=== PATIENT | female | born 1950 | race Caucasian/White ===

== ENCOUNTER → 2022-02-07 | Outpatient (CLI) | payer MEDICARE, OTHER ==
--- NOTE | 2022-02-07 14:39 | Diagnostic Imaging Report ---
INDICATION: PAIN OF LEFT HAND COMPARISON: None. FINDINGS: 3 radiographic views of the left hand were obtained. There are moderate osteoarthritic changes at the 1st carpometacarpal joint space. Mild degenerative changes of the interphalangeal joint spaces are also noted. Joint spaces are otherwise maintained. Osseous structures are intact. There is no acute fracture. No suspicious osteolytic lesion is seen. No unexpected radiopaque foreign bodies are identified. IMPRESSION: 1. Osteoarthritic changes to the left hand, but no evidence of acute fracture or dislocation. Dictated by: Dictated on workstation # [id number]
== END ==
LOC: ORTHO 14:04
PROVIDERS: ATTEND Orthopaedic Surgery
DX: M19.042 Primary osteoarthritis, left hand (principal)
CPT/HCPCS: 73130; G0463; 99213

== ENCOUNTER 2022-05-02 05:29 | Outpatient (CLI) | payer MEDICARE, OTHER ==
[~2022-05-02] VITALS: Ht 160.2 cm; Wt 109.0 kg
[2022-05-02] MEDS ORDERED: FOLI0.4T6 PO (10:20)
[2022-05-02] MEDS ORDERED: SERT-413 PO (10:20)
[2022-05-02] MEDS ORDERED: ASPI81TA16 PO (10:20)
[2022-05-02] MEDS ORDERED: LEVO88CA4 PO (10:20)
[2022-05-02] MEDS ORDERED: CELE-63 PO (10:20)
[2022-05-02] MEDS ORDERED: METH2.5T PO (10:20)
[2022-05-02] MEDS ORDERED: MULT-1136 PO (10:20)
[2022-05-02] MEDS ORDERED: DICL20GE TP (10:20)
[2022-05-02] MEDS ORDERED: LOSA1TAB26 PO (10:20)
== END 2022-05-02 10:44 | disposition home or self-care (01) ==
LOC: PREOP 05:29
PROVIDERS: ATTEND Orthopaedic Surgery
DX: Z01.818 Encounter for other preprocedural examination (principal)

== ENCOUNTER 2022-05-06 07:20 | Day surgery (SDC) | payer MEDICARE, OTHER ==
[~2022-05-06] VITALS: Ht 160 cm; Wt 109.0 kg
[2022-05-06] VITALS (8 sets, daily range): BP systolic 129–173; BP diastolic 72–93
[~2022-05-06 07:20] MED LIST: ASPI81TA16 PO; CELE-63 PO; DICL20GE TP; FOLI0.4T6 PO; LEVO88CA4 PO; LOSA1TAB26 PO; METH2.5T PO; MULT-1136 PO; SERT-413 PO
[2022-05-06] MEDS ORDERED: ceFAZolin INJECTION 2,000 MG in NS (IVPB) 50 ML IV ONE (07:30)
[2022-05-06] MEDS ORDERED: LACTATED RINGERS 1,000 ML IV PRN (07:30)
[2022-05-06] MEDS ORDERED: BUPIVACAINE 0.25% 30 ML (SENSORCAINE) VIAL ONE (07:45)
[2022-05-06] MEDS ORDERED: MIDAZOLAM 2 MG/2 ML (VERSED) VIAL ONE (09:09)
[2022-05-06] MEDS ORDERED: LIDOCAINE PF 0.5% 50 ML (XYLOCAINE) VIAL ONE (09:09)
[2022-05-06] MEDS ORDERED: PROPOFOL INJECTION 50 ML IV ONE (09:09)
[2022-05-06] MEDS ORDERED: fentaNYL INJ 100 MCG/2 ML AMP ONE (09:09)
[2022-05-06] MEDS ORDERED: ESMOLOL 100 MG/10 ML (BREVIBLOC) VIAL ONE (10:20)
[2022-05-06] MEDS ORDERED: NEO/POLY/BAC (NEOSPORIN) OINT 15 GM TUBE ONE (10:35)
[2022-05-06] MEDS ORDERED: LABETALOL HCL 20 MG/4 ML VIAL ONE (10:37)
[2022-05-06] MEDS ORDERED: BUPIVACAINE 0.25% 30 ML (SENSORCAINE) VIAL INJ ONE (10:45)
[2022-05-06] MEDS: NEO/POLY/BAC (NEOSPORIN) OINT 15 GM TUBE TOP SCH (10:47)
--- NOTE | 2022-05-06 10:57 | Operative Report - Ortho ---
Operative Report Surgeon (s)/Silk Screen Operator (s) Surgeon GERTRUDE RICHEY MD Silk Screen Operator n/a Pre-Operative Diagnosis LEFT CARPAL TUNNEL SYNDROME Post-Operative Diagnosis same Operative Report Date of Procedure: May 06, 2022 Name of Procedure Performed: Left Carpal Tunnel Release Description & Findings After obtaining informed consent and marking the patient in the preoperative holding area, the patient was administered IV antibiotics. The patient was t aken to the operating room and lang block anesthesia was induced. The left upper extremity was prepped and draped in the usual sterile fashion. Surgical timeout was taken. Incision was made just ulnar to the thenar crease. Blunt dissection was carried down to the longitudinal fibers of the palmar fascia; these were divided in line revealing the transverse carpal ligament. Beginning distally and working proximally, carpal tunnel release was performed. Nerve protector was placed and release was completed back to the level of the forearm fascia. Probe was inserted and release was palpably complete. Tourniquet was dropped and hemostasis was achieved. Wound was closed with 4-0 nylon. Wound was dressed with antibiotic ointment, xeroform, 4x4s, parisa, ABD for soft splint, cast padding, and ELIN wrap. Patient tolerated the proceudre well and was stable to the recovery room. Anesthesia Type Lang Block Estimated Blood Loss minimal Specimen(s) collected/removed None GERTRUDE RICHEY MD May 06, 2022 10:57
[2022-05-06] MEDS ORDERED: ACHD5005 PO (11:00)
[2022-05-06] MEDS ORDERED: ONDANSETRON 4 MG/2 ML (SDV) Z0FRAN IVP PRN (11:15)
--- NOTE | 2022-05-06 12:01 | Anesthesia-General Post-Op ---
MAC Patient Condition Mental Status/LOC: Same as Preop Cardiovascular: Satisfactory Nausea/Vomiting: Absent Respiratory: Satisfactory Pain: Controlled Complications: Absent Post Op Complications Complications None Follow Up Care/Instructions Patient Instructions None needed. Anesthesiology Discharge Order Discharge Order Patient is doing well, no complaints, stable vital signs, no apparent adverse anesthesia problems. No complications reported per nursing. ANTONIO PHOENIX CRNA May 06, 2022 12:01
== END 2022-05-06 12:05 | disposition home or self-care (01) ==
LOC: SDC 07:20
PROVIDERS: ATTEND Orthopaedic Surgery
DX: G56.02 Carpal tunnel syndrome, left upper limb (principal); Z79.82 Long term (current) use of aspirin; E66.01 Morbid (severe) obesity due to excess calories; Z68.41 Body mass index [BMI] 40.0-44.9, adult
CPT/HCPCS: 87081

== ENCOUNTER → 2022-05-21 | Outpatient (CLI) | payer MEDICARE, OTHER ==
[~2022-05-21] MED LIST changes: +ACHD5005 PO
== END ==
LOC: ORTHO 09:33
PROVIDERS: ATTEND Orthopaedic Surgery
DX: M17.11 Unilateral primary osteoarthritis, right knee (principal)

== ENCOUNTER → 2022-06-20 | Outpatient (CLI) | payer MEDICARE, OTHER ==
--- NOTE | 2022-06-20 16:26 | Diagnostic Imaging Report ---
INDICATION: Right knee pain AP, oblique, lateral and sunrise views of the right knee are obtained. No fracture or acute bone abnormality is seen. There is moderate medial joint space narrowing with osteophyte formation. Lateral compartment appears preserved. Patellofemoral compartment appears preserved. IMPRESSION: Degenerative findings of the right knee medial compartment with no acute abnormality. Dictated by: Dictated on workstation # [id number]
== END ==
LOC: ORTHO 09:51
PROVIDERS: ATTEND Orthopaedic Surgery
DX: M17.11 Unilateral primary osteoarthritis, right knee (principal)
CPT/HCPCS: 73564

== ENCOUNTER → 2022-07-02 | Outpatient (CLI) | payer MEDICARE, OTHER | LOC: ORTHO 14:15 | PROVIDERS: ATTEND Orthopaedic Surgery | DX: M17.11 Unilateral primary osteoarthritis, right knee (principal) | CPT/HCPCS: 20610 ==

== ENCOUNTER → 2022-10-03 | Outpatient (CLI) | payer MEDICARE, OTHER | LOC: ORTHO 11:30 | PROVIDERS: ATTEND Orthopaedic Surgery | DX: M17.11 Unilateral primary osteoarthritis, right knee (principal) | CPT/HCPCS: 20610 ==

== ENCOUNTER → 2023-04-08 | Outpatient (CLI) | payer MEDICARE, OTHER ==
[2023-04-08 10:25] LABS: BASOPHILS % (AUTO) 1 % (0-10); EOSINOPHILS # (AUTO) 0.2 10^3/uL (0.0-0.3); EOSINOPHILS % (AUTO) 2 % (0-10); HEMATOCRIT 44 % (35-52); HEMOGLOBIN 14.4 g/dL (11.5-16.0); LYMPHOCYTES # (AUTO) 1.6 10^3/uL (1.0-4.0); LYMPHOCYTES % (AUTO) 19 % (12-44); MEAN CORPUSCULAR HEMOGLOBIN 29 pg (25-34); MEAN CORPUSCULAR HGB CONC 33 g/dL (32-36); MEAN CORPUSCULAR VOLUME 90 fL (80-99); MEAN PLATELET VOLUME 10.1 fL (9.0-12.2); MONOCYTES # (AUTO) 0.6 10^3/uL (0.0-1.0); MONOCYTES % (AUTO) 7 % (0-12); NEUTROPHILS # (AUTO) 5.9 10^3/uL (1.8-7.8); NEUTROPHILS % (AUTO) 71 % (42-75); PLATELET COUNT 317 10^3/uL (130-400); WHITE BLOOD COUNT 8.3 10^3/uL (4.3-11.0)
[2023-04-08 10:28] LABS: POTASSIUM 4.3 MMOL/L (3.6-5.0)
[2023-04-08 10:29] LABS: CALCIUM 9.7 MG/DL (8.5-10.1)
[2023-04-08 10:31] LABS: BACTERIA,URINE MODERATE /HPF; BILIRUBIN,URINE 1+ (NEGATIVE); CLARITY,URINE CLOUDY; COLOR,URINE YELLOW; GLUCOSE, URINE (UA) NEGATIVE (NEGATIVE); KETONES,URINE NEGATIVE (NEGATIVE); LEUKOCYTE ESTERASE ,URINE 1+ (NEGATIVE); NITRITE,URINE NEGATIVE (NEGATIVE); PH,URINE 6.5 (5-9); PROTEIN,URINE 1+ (NEGATIVE)
[2023-04-08 10:32] LABS: YEAST,URINE FEW /HPF
[2023-04-08 10:33] LABS: CREATININE SERUM 0.87 MG/DL (0.60-1.30)
--- NOTE | 2023-04-08 14:55 | Diagnostic Imaging Report ---
INDICATION: Preoperative evaluation COMPARISON: None available TECHNIQUE: Frontal and lateral radiographs of the chest dated 04/08/2023 FINDINGS: The cardiac silhouette is within normal limits in size. No significant pulmonary vascular congestion. Left basilar interstitial opacities. The right lung is clear of focal pulmonary opacity. No pleural effusion. No pneumothorax. Scattered osseous degenerative changes without acute osseous abnormality. IMPRESSION: Minimal left basilar scarring and/or atelectasis. Dictated by: Dictated on workstation # [id number]
== END ==
LOC: ORTHO 08:59
PROVIDERS: ATTEND Orthopaedic Surgery
DX: Z01.89 Encounter for other specified special examinations (principal)
CPT/HCPCS: 36415; 71046; 80048; 81000; 85025; 87088; 99213

== ENCOUNTER 2023-04-15 09:00 | Outpatient (CLI) | payer MEDICARE, OTHER ==
[~2023-04-15] VITALS: Ht 162.6 cm; Wt 106.8 kg
[2023-04-15 09:35] VITALS: BP 145/82
[2023-04-15] MEDS ORDERED: CHOL100048 PO (10:07)
[2023-04-15] MEDS ORDERED: SIMV20TA26 PO (10:07)
== END 2023-04-15 12:26 | disposition home or self-care (01) ==
LOC: PREOP 09:00
PROVIDERS: ATTEND Orthopaedic Surgery
DX: Z01.818 Encounter for other preprocedural examination (principal)

== ENCOUNTER 2023-04-28 06:10 | Day surgery (SDC) | payer MEDICARE, OTHER ==
[2023-04-15 09:30] LABS: BILIRUBIN,URINE NEGATIVE (NEGATIVE); CLARITY,URINE CLEAR; COLOR,URINE YELLOW; GLUCOSE, URINE (UA) NEGATIVE (NEGATIVE); KETONES,URINE NEGATIVE (NEGATIVE); LEUKOCYTE ESTERASE ,URINE 1+ (NEGATIVE); NITRITE,URINE NEGATIVE (NEGATIVE); PH,URINE 5.5 (5-9); PROTEIN,URINE NEGATIVE (NEGATIVE)
[2023-04-15 09:31] LABS: BACTERIA,URINE LARGE /HPF; SQUAMOUS EPITHELIAL CELL,UR 25-50 /HPF; YEAST,URINE FEW /HPF
--- NOTE | 2023-04-15 11:24 | Diagnostic Imaging Report ---
CT EXTREMITY LOWER RIGHT WO TECHNIQUE: Multiple contiguous axial images of the right knee were obtained without the use of intravenous contrast. Sagittal and coronal reformations were then performed. All CT scans use one or more of the following dose optimizing techniques: automated exposure control, MA and/or KvP adjustment based on patient size and exam type, or iterative reconstruction. INDICATION: Right knee pain. Operative planning CT. COMPARISON: None available. FINDINGS: Pelvis: No incidental osseous or soft tissue abnormality that requires further workup. Knee: Tricompartmental osteoarthritis. No incidental osseous or soft tissue abnormality that requires further workup. Ankle: Calcific tendinitis of the bilateral Achilles tendons. IMPRESSION: Tricompartmental osteoarthritis. Dictated by: Dictated on workstation # [id number]
[~2023-04-28] VITALS: Ht 162.6 cm; Wt 106.8 kg
[2023-04-28] VITALS (14 sets, daily range): BP systolic 144–192; BP diastolic 77–96
[~2023-04-28 06:10] MED LIST changes: +CHOL100048 PO; +SIMV20TA26 PO
[2023-04-28] MEDS: LACTATED RINGERS 1,000 ML 1,000 ML IV PRN ×2 (06:37→09:16)
[2023-04-28] MEDS ORDERED: ceFAZolin INJECTION 2,000 MG in NS (IVPB) 50 ML 50 ML IV ONE (06:45)
[2023-04-28] MEDS ORDERED: MIDAZOLAM INJ 2 MG/2 ML VIAL ONE (06:59)
[2023-04-28] MEDS ORDERED: proPOfol INJECTION 200 MG/20 ML VIAL IV ONE (07:00)
[2023-04-28] MEDS ORDERED: ROPIVACAINE 5 MG/ML 30ML VIAL ONE (07:00)
[2023-04-28] MEDS ORDERED: fentaNYL INJECTION 100 MCG/2 ML VIAL ONE ×3 (07:00→10:14)
--- NOTE | 2023-04-28 07:14 | Progress Note-Pre Operative ---
Pre-Operative Progress Note Date of Available H&P: Apr 08, 2023 Date H&P Reviewed: Apr 28, 2023 Time H&P Reviewed: 07:05 History & Physical: H&P Reviewed, Patient Examed, No changes noted Pre-Operative Diagnosis: Right Knee Primary Osteoarthritis GERTRUDE RICHEY MD Apr 28, 2023 07:14
[2023-04-28] MEDS ORDERED: TRANEXAMIC ACID 100 MG/ML 10 ML INJECTION ONE (07:33)
[2023-04-28] MEDS ORDERED: LIDOCAINE PF 2% 5 ML VIAL ONE (08:05)
[2023-04-28] MEDS ORDERED: dexAMETHasone INJ 10 MG/ML 1 ML VIAL ONE (08:06)
[2023-04-28] MEDS ORDERED: ONDANSETRON INJECTION 4 MG/2 ML (SDV) ONE (08:06)
[2023-04-28] MEDS ORDERED: SEVOFLURANE (ULTANE) 15 ML INHAL SOLN ONE (08:06)
--- NOTE | 2023-04-28 10:12 | Operative Report - Ortho ---
Operative Report Surgeon (s)/Bike Designer (s) Surgeon GERTRUDE RICHEY MD Bike Designer n/a Pre-Operative Diagnosis Right Knee Primary Osteoarthritis Post-Operative Diagnosis same Operative Report Date of Procedure: Apr 28, 2023 Name of Procedure Performed: Robotic Assisted Right Total Knee Arthroplasty Description & Findings After obtaining informed consent and marking the patient in the preoperative holding area, the patient did receive IV antibiotics. Patient was taken to the operating room and anesthesia was induced. Surgical timeout was taken. The right lower extremity was prepped and draped in the usual sterile fashion. Incision was made and carried down to fascia. Arthrotomy was performed on the medial side of the patella. Patella was retracted laterally and knee was flexed. Found to have circumferential osteophtye around the distal femur as well as exposed bone in the medial compartment. ACL and anterior horns of the menisci were removed. 3.2 mm pins were placed in the medial femoral condyle for the femoral array and checkpoint was placed next to the pins. 3.2 mm pins were placed in the proximal tibia and checkpoint was placed there as well. Arrays were placed and tightened into position. The femur and tibia were then registered. Osteophytes were removed. The knee was then tensioned with varus and valgus stress in extension and flexion. Measurements were captured and adjustments were made to the preoperative plan to balance the flexion and extension gaps. Robotic arm was brought into position and all femoral cuts as well as the tibial cut were performed. Bone blocks were removed. Arrays and pins were removed. Box cut was performed; lug holes were drilled. Lamina louver door assembler was placed and the remainder of the mensici as well as posterior osteophytes were removed. The knee was trialed with a size 3 femur and a size 3 tibia with a 9 mm poly trial. It was found to come out to full extension and flexed beyond 120 degrees. It was stable to varus and valgus stress throughout its range of motion. This was accepted. Knee was brought out into extension and the patella was measured at less than 20 mm of thickness. Osteophytes were removed from around the perimeter of the patella. Patella tracked well through the trochlear groove of the femur. Trial implants were removed. Tibial tray was pinned and punched. The cut bone surfaces were lavaged with pulsatile normal saline. Implants were opened and assembled on the back table. A size 3 press fit tibial component was impacted into place. Cement was mixed. Cement was applied to the cut bone surface of the femur as well as the femoral implant. A size 3 femoral component was impacted into place and excess cement was removed using a freer. Tibial tray was lavaged with saline. A 9 mm thick polyethylene component was locked into placed and the locking mechanism was checked. Knee was brought into extension. Irrisept soak was performed and then, the knee was irrigated with normal saline. The knee was once again trialed; found to come to full extension, flexed beyond 120 degrees, and was stable to varus and valgus stress. Tourniquet was dropped and electrocautery was used for hemostasis. Fascial layer was closed with #2 Stratafix. The subcutaneous layer was closed with 2-0 Vicryl. The skin was closed with 3-0 V-loc. Wound was dressed with steri-strips, xeroform, 4x4s, ABD, webril, and ELIN wrap. Patient tolerated the procedure well and was stable to the recovery room. Anesthesia Type General plus Regional Estimated Blood Loss 300 ml Specimen(s) collected/removed None GERTRUDE RICHEY MD Apr 28, 2023 10:12
[2023-04-28] MEDS ORDERED: fentaNYL INJECTION 100 MCG/2 ML VIAL IVP ONE (10:15)
[2023-04-28] MEDS ORDERED: ONDANSETRON INJECTION 4 MG/2 ML (SDV) IVP PRN (10:15)
[2023-04-28] MEDS ORDERED: PROMETHAZINE INJ 25 MG/ML VIAL IVP ONE (10:15)
[2023-04-28] MEDS ORDERED: BISACODYL 5 MG TABLET PO PRN (10:15)
[2023-04-28] MEDS ORDERED: MEPERIDINE INJ 50 MG/ML VIAL IVP ONE (10:15)
[2023-04-28] MEDS ORDERED: MILK OF MAGNESIA 400 MG/5 ML 30 ML UDC PO PRN (10:15)
[2023-04-28] MEDS ORDERED: ONDANSETRON INJECTION 4 MG/2 ML (SDV) IV PRN (10:15)
[2023-04-28] MEDS ORDERED: HYDROmorphone INJECTION 2 MG/ML VIAL IVP PRN (10:30)
--- NOTE | 2023-04-28 10:46 | Diagnostic Imaging Report ---
EXAMINATION: Right knee radiographs, 2 views. COMPARISON: Right knee radiographs June 20, 2022. HISTORY: 72-year-old female, right knee prosthesis placement. FINDINGS: There is a right knee prosthesis. Intra-articular and soft tissue gas likely reflects the recent post operative state of the patient. The hardware is intact. There is no identified acute fracture. IMPRESSION: Placement of a right knee prosthesis without identified complication. Dictated by: Dictated on workstation # [id number]
[2023-04-28] MEDS: NS IV 1000 ML 1,000 ML IV SCH ×2 (12:09→21:08)
[2023-04-28] MEDS: oxyCODONE IMMEDIATE RELEASE 5 MG TABLET PO PRN ×3 (12:21→20:29)
--- NOTE | 2023-04-28 14:22 | Physical Therapy Evaluation ---
PT Evaluation-General Medical Diagnosis Admission Date April 28, 2023 Medical Diagnosis: right knee OA Onset Date: Apr 28, 2023 Therapy Diagnosis Therapy Diagnosis: debility/weakness Precautions Precautions/Isolations: Fall Prevention, Standard Precautions Referral Physician: [place] Reason for Referral: Evaluation/Treatment Medical History Current History s/p elective right TKR Reviewed History: Yes Social History Home: Single Level Current Living Status: Spouse Prior Prior Level of Function SCALE: Activities may be completed with or without assistive devices. 9-Kqpauricjm-rsspejr completes the activity by him/herself with no assistance from a helper. 5-Set-up or Clean-up Assistance-helper sets up or cleans up; patient completes activity. [place] assists only prior to or following the activity. 4-Supervision or Touching Assistance-helper provides verbal cues and/or touching/steadying and/or contact guard assistance as patient completes activity. Assistance may be provided throughout the activity or intermittently. 3-Partial/Moderate Assistance-helper does LESS THAN HALF the effort. [place] lifts, holds or supports trunk or limbs, but provides less than half the effort. 2-Substantial/Maximal Assistance-helper does MORE THAN HALF the effort. [place] lifts or holds trunk or limbs and provides more than half the effort. 1-Vilfamfpu-lwrtmo does ALL the effort. Patient does none of the effort to complete the activity. Or, the assistance of 2 or more helpers is required for the patient to complete the activity. If activity was not attempted, code reason: 7-Patient Refused. 9-Not Applicable-not attempted and the patient did not perform the activity before the current illness, exacerbation or injury. 10-Not Attempted due to Environmental Limitations-(lack of equipment, weather restraints, etc.). 88-Not Attempted due to Medical Conditions or Safety Concerns. Bed Mobility: 6 Transfers (B,C,W/C): 6 Gait: 6 Stairs: 6 Indoor Mobility (Ambulation): Independent Stairs: Independent PT Evaluation-Current Subjective Patient agrees to therapy. Pain Numeric Pain Scale: 8 Location: Right Location Body Site: Knee Pain Description: Acute Objective Patient Orientation: Normal For Age Attachments: Caraballo Catheter, IV ROM/Strength ROM Lower Extremities right knee flexion 30 degrees/0 degrees extension/left LE WFL Strength Lower Extremities right LE 3-/5 grossly/left LE 3+/5 grossly Integumentary/Posture Bladder Incontinence: Caraballo Cath Posture WFL Neuromuscular (Tone, Coordination, Reflexes) grossly intact Sensory Vision: Functional Hearing: Functional Sensation Right Lower Extremit: Intact Sensation Left Lower Extremity: Intact Transfers Lying to Sitting/Side of Bed(Q: 4 Sit to Stand (QC): 3 Chair/Krj-zn-Kwpbg Xfer(QC): 4 Gait Mode of Locomotion: Walk Anticipated Mode of Locomotion: Walk Walk 10 feet (QC): 3 Walk 50 ft with 2 Turns(QC): 88 Walk 150 ft (QC): 88 Distance: 25' Gait Assistive Device: FWW Comments/Gait Description slow, antalgic, step to gait sequence Balance Sitting Static: Normal Sitting Dynamic: Normal Standing Static: Fair Standing Dynamic: Fair Assessment/Needs Patient will benefit from skilled PT to address functional strength and mobility to improve current LOF to safely return to home with spouse at maximum LOF. Rehab Potential: Fair PT Ladies' Locker Room Attendant Goals Ladies' Locker Room Attendant Goals PT Ladies' Locker Room Attendant Goals Time Frame: May 03, 2023 Roll Left & Right (QC): 6 Sit to Lying (QC): 6 Lying-Sitting on Side/Bed(QC): 6 Sit to Stand (QC): 6 Chair/Wuy-pt-Umnhk Xfer(QC): 6 Toilet Transfer (QC): 6 Walk 10 feet (QC): 6 Walk 50ft with 2 Turns (QC): 6 Walk 150 ft (QC): 6 PT Plan Problem List Problem List: Activity Tolerance, Functional Strength, Balance, Gait, Transfer, Bed Mobility, ROM Treatment/Plan Treatment Plan: Continue Plan of Care Treatment Plan: Bed Mobility, Education, Functional Activity Michael, Functional Strength, Gait, Safety, Therapeutic Exercise, Transfers Treatment Duration: May 03, 2023 Frequency: 11 times per week Estimated Hrs Per Day: .5 hour per day Patient and/or Family Agrees t: Yes Time Time In: 1350 Time Out: 1408 DATE: Apr 28, 2023 Total Billed Treatment Time: 18 Total Billed Treatment [facility] EMILY COURTNEY PT Apr 28, 2023 14:22
[2023-04-28] MEDS ORDERED: LEVO88TA54 PO (14:51)
[2023-04-28] MEDS ORDERED: FOLI0.8T4 PO (14:51)
--- NOTE | 2023-04-28 14:53 | Occupational Therapy Eval ---
OT Evaluation-General/PLF Medical Diagnosis Admission Date Medical Diagnosis: right knee OA Onset Date: Apr 28, 2023 Therapy Diagnosis Therapy Diagnosis: weakness/pain s/p RTKA Precautions Precautions/Isolations: Fall Prevention, Standard Precautions Weight Bear Status Weight Bearing Restriction: Weight Bearing/Tolerated Location Restriction: R LE Referral Physician: [place] Referral Reason: Activity Tolerance, Self Care, Evaluation/Treatment Medical History Reviewed History: Yes Social History Home: Single Level Current Living Status: Spouse ADL-Prior Level of Function SCALE: Activities may be completed with or without assistive devices. 4-Qksoclyivq-jicurle completes the activity by him/herself with no assistance from a helper. 5-Set-up or Clean-up Assistance-helper sets up or cleans up; patient completes activity. [place] assists only prior to or following the activity. 4-Supervision or Touching Assistance-helper provides verbal cues and/or touching/steadying and/or contact guard assistance as patient completes activity. Assistance may be provided throughout the activity or intermittently. 3-Partial/Moderate Assistance-helper does LESS THAN HALF the effort. [place] lifts, holds or supports trunk or limbs, but provides less than half the effort. 2-Substantial/Maximal Assistance-helper does MORE THAN HALF the effort. [place] lifts or holds trunk or limbs and provides more than half the effort. 9-Curcsddqb-edjjan does ALL the effort. Patient does none of the effort to complete the activity. Or, the assistance of 2 or more helpers is required for the patient to complete the activity. If activity was not attempted, code reason: 7-Patient Refused. 9-Not Applicable-not attempted and the patient did not perform the activity before the current illness, exacerbation or injury. 10-Not Attempted due to Environmental Limitations-(lack of equipment, weather restraints, etc.). 88-Not Attempted due to Medical Conditions or Safety Concerns. ADL PLOF Comments chronic injury affecting LUE, spouse assists w/ U[employer] bra donning Self Care: Needed Some Help Functional Cognition: Independent Drive Self: Yes OT Current Status Subjective Painful, tearful of pain anticipation Pain Numeric Pain Scale: 6 Location: Right Location Body Site: Knee Mental Status/Objective Patient Orientation: Person, Place, Time, Situation Attachments: Caraballo Catheter, IV Current Upper Extremity ROM BUE ROM WFLs Upper Extremity Coordination WFLs, Left hand slightly limited d/t nerve injury Upper Extremity Sensation INTACT Upper Extremity Strength RUE WFLS, LUE -3/5 ADL-Treatment Eating (QC): 6 Oral Hygiene (QC): 5 Shower/Bathe Self (QC): 88 Upper Body Dressing (QC): 4 Lower Body Dressing (QC): 3 On/Off Footwear (QC): 1 Toileting Hygiene (QC): 88 Education OT Patient Education: Correct positioning, Exercise program, Instructions to caregiver, Modified ADL techniques, Progress toward Goal/Update tx plan, Purpose of tx/functional activities, Reviewed precautions, Rehab process, Safety issues, Transfer techniques Teaching Recipient: Patient, Family Teaching Methods: Demonstration, Discussion Response to Teaching: Verbalize Understanding, Reinforcement Needed OT Longterm Goals Early Childhood Director Goals Time Frame: May 01, 2023 Eating (QC): 6 Oral Hygiene (QC): 6 Toileting Hygiene (QC): 6 Shower/Bathe Self (QC): 5 Upper Body Dressing (QC): 6 Lower Body Dressing (QC): 6 On/Off Footwear (QC): 6 1=Demonstrate adherence to instructed precautions during ADL tasks. 2=Patient will verbalize/demonstrate understanding of assistive devices/modifications for ADL. 3=Patient will improve strength/tolerance for activity to enable patient to perform ADL's. OT Education/Plan Problem List/Assessment Assessment: Decreased Activ Tolerance, Decreased UE Strength, Impaired Self- Care Skills Discharge Recommendations Plan/Recommendations: Continue POC Treatment Plan/Plan of Care Treatment,Training & Education: Yes Patient would benefit from OT for education, treatment and training to promote independence in ADL's, mobility, safety and/or upper extremity function for ADL's. Plan of Care: ADL Retraining, Concurrent Therapy, Functional Mobility, Group Exercise/Act as Ind, UE Funct Exercise/Act Treatment Duration: May 01, 2023 Frequency: 3 times per week (3-5 times/week) Rehab Potential: Fair Time Start Time: 13:50 Stop Time: 14:08 DATE: Apr 28, 2023 Total Time Billed (hr/min): 18 Billed Treatment Time EVM 18 min JAMIE LEHMAN OT Apr 28, 2023 14:53
[2023-04-28] MEDS: ACETAMINOPHEN 500 MG TABLET PO PRN (19:50)
[2023-04-28] MEDS: DOCUSATE SODIUM 100 MG CAPSULE PO SCH (20:29)
[2023-04-28] MEDS: SERTRALINE 50 MG TABLET PO SCH (20:29)
[2023-04-28] MEDS: ceFAZolin INJECTION 2,000 MG in NS (IVPB) 50 ML 50 ML IV SCH (20:30)
[2023-04-28] MEDS ORDERED: NON-FORMULARY MEDICATION 1 EA EA (Simvastatin 20 MG) PO SCH (21:00)
[2023-04-29] MEDS: oxyCODONE IMMEDIATE RELEASE 5 MG TABLET PO PRN ×5 (02:39→21:16)
[2023-04-29] MEDS: ACETAMINOPHEN 500 MG TABLET PO PRN ×2 (02:39→23:45)
[2023-04-29 04:03] VITALS: BP 164/75
[2023-04-29] MEDS: ceFAZolin INJECTION 2,000 MG in NS (IVPB) 50 ML 50 ML IV SCH (04:08)
[2023-04-29 06:09] LABS: HEMOGLOBIN 12.3 g/dL (11.5-16.0)
[2023-04-29] MEDS: NS IV 1000 ML 1,000 ML IV SCH (06:41)
[2023-04-29 07:41] VITALS: BP 158/80
[2023-04-29] MEDS: THERAPEUTIC MULTIVITAMIN W/MINERALS TABLET PO SCH (08:34)
[2023-04-29] MEDS: DOCUSATE SODIUM 100 MG CAPSULE PO SCH ×2 (08:34→20:49)
[2023-04-29] MEDS: LOSARTAN 100 MG TABLET PO SCH (08:34)
[2023-04-29] MEDS: APIXABAN 2.5 MG TABLET PO SCH ×2 (08:34→20:49)
[2023-04-29] MEDS: LEVOTHYROXINE 88 MCG TABLET PO SCH (08:38)
[2023-04-29] MEDS ORDERED: LEVOTHYROXINE SODIUM 88 MCG PO SCH (09:00)
[2023-04-29] MEDS ORDERED: SERTRALINE 50 MG TABLET PO SCH (09:00)
--- NOTE | 2023-04-29 09:35 | Physical Therapy Daily Note ---
PT Daily Note-Current Subjective Patient is very tearful due to right knee pain with meds issued. Dr. Weir in to see patient during session. Pain Numeric Pain Scale: 10-Worst Possible Pain Location: Right Location Body Site: Knee Pain Description: Acute Section J - Health Conditions 1. Rarely or not at all 2. Occasionally 3. Frequently 4. Almost constantly 8. Unable to answer Pain Effect on Sleep: 4 Pain Interference with Therapy: 4 Pain Interference w/Day-to-Day: 4 Mental Status Patient Orientation: Normal For Age Transfers SCALE: Activities may be completed with or without assistive devices. 0-Ptwryttglw-vsyzseq completes the activity by him/herself with no assistance from a helper. 5-Set-up or Clean-up Assistance-helper sets up or cleans up; patient completes activity. [place] assists only prior to or following the activity. 4-Supervision or Touching Assistance-helper provides verbal cues and/or touching/steadying and/or contact guard assistance as patient completes activity. Assistance may be provided throughout the activity or intermittently. 3-Partial/Moderate Assistance-helper does LESS THAN HALF the effort. [place] lifts, holds or supports trunk or limbs, but provides less than half the effort. 2-Substantial/Maximal Assistance-helper does MORE THAN HALF the effort. [place] lifts or holds trunk or limbs and provides more than half the effort. 1-Vhuwfjffi-viyoce does ALL the effort. Patient does none of the effort to complete the activity. Or, the assistance of 2 or more helpers is required for the patient to complete the activity. If activity was not attempted, code reason: 7-Patient Refused. 9-Not Applicable-not attempted and the patient did not perform the activity before the current illness, exacerbation or injury. 10-Not Attempted due to Environmental Limitations-(lack of equipment, weather restraints, etc.). 88-Not Attempted due to Medical Conditions or Safety Concerns. Lying to Sitting/Side of Bed(Q: 4 Sit to Stand (QC): 3 Chair/Xmp-ju-Wtkav Xfer(QC): 3 Toilet Transfer (QC): 3 Gait Training Distance: 100' Walk 10 feet (QC): 4 Walk 50 ft with 2 Turns(QC): 4 Gait Assistive Device: FWW CGA for safety/very slow, antalgic gait sequence/step to Exercises Supine Ex: Ankle pumps, Quad Set, Heel Slides, Straight leg raise Supine Reps: 15 (AAROM) Seated Therapy Exercises: Long arc quads Seated Reps: 15 Assessment Patient requires time to complete all functional tasks and is very resistive to perform exercise program. Patient is tearful during session due to pain. Patient limits mobility due to pain and requires much encouragement to participate and complete session. Family present. PT Correction Goals Correction Goals PT Skilled Nursing Case Manager Goals Time Frame: May 03, 2023 Roll Left & Right (QC): 6 Sit to Lying (QC): 6 Lying-Sitting on Side/Bed(QC): 6 Sit to Stand (QC): 6 Chair/Ubc-cu-Sqzkn Xfer(QC): 6 Toilet Transfer (QC): 6 Walk 10 feet (QC): 6 Walk 50ft with 2 Turns (QC): 6 Walk 150 ft (QC): 6 PT Plan Treatment/Plan Treatment Plan: Continue Plan of Care Treatment Plan: Bed Mobility, Education, Functional Activity Mc[place], Functional Strength, Gait, Safety, Therapeutic Exercise, Transfers Treatment Duration: May 03, 2023 Frequency: 11 times per week Estimated Hrs Per Day: .5 hour per day Patient and/or Family Agrees t: Yes Time Time In: 756 Time Out: 838 DATE: Apr 29, 2023 Total Billed Treatment Time: 42 Total Billed Treatment 1 visit EX x 2 23 min GT 19 min EMILY COURTNEY PT Apr 29, 2023 09:35
--- NOTE | 2023-04-29 09:44 | Occupational Ther Daily Note ---
OT Current Status-Daily Note Subjective Agreeable to participate, c/o pain and is very slow moving, requires extra time to mentally prepare for tasks d/t fear of pain Pain Numeric Pain Scale: 7 Location Body Site: Knee Mental Status/Objective Patient Orientation: Person, Place, Time, Situation Ilya removed this morning ADL-Treatment Overhead dress donned EOB, required 50% assistance w/ donning slipper socks and Min assist and 3 trials to perform transfers, Patient reports she pulls on items at home to stand. Therapy Code Descriptions/Definitions Functional [facility] Measure: 0=Not Assessed/NA 4=Minimal Assistance 1=Total Assistance 5=Supervision or Setup 2=Maximal Assistance 6=Modified [facility] 3=Moderate Assistance 7=Complete IndependenceSCALE: Activities may be completed with or without assistive devices. 0-Pnnkpsbsxx-ilycfaf completes the activity by him/herself with no assistance from a helper. 5-Set-up or Clean-up Assistance-helper sets up or cleans up; patient completes activity. [place] assists only prior to or following the activity. 4-Supervision or Touching Assistance-helper provides verbal cues and/or sacha lang/steadying and/or contact guard assistance as patient completes activity. Assistance may be provided throughout the activity or intermittently. 3-Partial/Moderate Assistance-helper does LESS THAN HALF the effort. [place] lifts, holds or supports trunk or limbs, but provides less than half the effort. 2-Substantial/Maximal Assistance-helper does MORE THAN HALF the effort. [place] lifts or holds trunk or limbs and provides more than half the effort. 7-Qsrbvjeky-mbtnms does ALL the effort. Patient does none of the effort to complete the activity. Or, the assistance of 2 or more helpers is required for the patient to complete the activity. If activity was not attempted, code reason: 7-Patient Refused. 9-Not Applicable-not attempted and the patient did not perform the activity before the current illness, exacerbation or injury. 10-Not Attempted due to Environmental Limitations-(lack of equipment, weather restraints, etc.). 88-Not Attempted due to Medical Conditions or Safety Concerns. Eating (QC): 6 Oral Hygiene (QC): 5 Upper Body Dressing (QC): 4 Lower Body Dressing (QC): 3 On/Off Footwear: 3 Toileting Hygiene (QC): 4 Toilet Transfer (QC): 4 (required patient pulling w/ both hands on GB.) Other Treatment 3Sit/Stands at recliner, multi-directional functional reach distances to weight shift on LE Education OT Patient Education: Correct positioning, Exercise program, Instructions to caregiver, Modified ADL techniques, Progress toward Goal/Update tx plan, Purpose of tx/functional activities, Reviewed precautions, Rehab process, Safety issues, Transfer techniques, Use of adapted equipment Teaching Recipient: Patient, Family Teaching Methods: Demonstration, Discussion Response to Teaching: Verbalize Understanding, Reinforcement Needed OT Mcc Goals Mcc Goals Time Frame: May 01, 2023 Eating (QC): 6 Oral Hygiene (QC): 6 Toileting Hygiene (QC): 6 Shower/Bathe Self (QC): 5 Upper Body Dressing (QC): 6 Lower Body Dressing (QC): 6 On/Off Footwear (QC): 6 1=Demonstrate adherence to instructed precautions during ADL tasks. 2=Patient will verbalize/demonstrate understanding of assistive devices/modifications for ADL. 3=Patient will improve strength/tolerance for activity to enable patient to perform ADL's. OT Education/Plan Discharge Recommendations Plan/Recommendations: Continue POC Barriers to Progress Patient self limits movement Treatment Plan/Plan of Care Treatment,Training & Education: Yes Patient would benefit from OT for education, treatment and training to promote independence in ADL's, mobility, safety and/or upper extremity function for ADL's. Plan of Care: ADL Retraining, Concurrent Therapy, Functional Mobility, Group Exercise/Act as Ind, UE Funct Exercise/Act Treatment Duration: May 01, 2023 Frequency: 3 times per week (3-5 times/week) Rehab Potential: Fair Time Start Time: 08:13 Stop Time: 08:38 DATE: Apr 29, 2023 Total Time Billed (hr/min): 25 Billed Treatment Time 2 ADL 25 min JAMIE LEHMAN OT Apr 29, 2023 09:44
--- NOTE | 2023-04-29 11:32 | Progress Note - Ortho ---
Progress Note Subjective Date of Exam 04/29/23 Chief Complaint POD #1 R TKA HPI/Events since last exam having difficulty with posterior knee pain, was getting ready to get up with therapy Review of Systems - Allergies: Coded Allergies: morphine (Verified Allergy, Mild, 04/28/23) RED STREAKS UP THE ARM SOON IT WAS ADMINISTERED. Sulfa (Sulfonamide Antibiotics) (Verified Allergy, Unknown, 04/15/23) TAKES METHOTREXATE--WAS INSTRUCTED TO NEVER TAKE IT. Home Meds Reported Medications Folic Acid (Folic Acid) 0.8 Mg Tablet, 0.8 MG PO DAILY, TAB 04/28/23 Levothyroxine Sodium (Levothyroxine Sodium) 88 Mcg Tablet, 88 MCG PO DAILY, TAB 04/28/23 Cholecalciferol (Vitamin D3) (Vitamin D3) 25 Mcg (1000 Unit) Capsule, 25 MCG PO DAILY, CAP 04/15/23 Simvastatin (Simvastatin) 20 Mg Tablet, 20 MG PO HS, TAB 04/15/23 Diclofenac Sodium (Voltaren Arthritis Pain) 1 % Gel..gram., 1 APPLIC TP Q6H PRN for PAIN-BREAKTHROUGH, EA APPLY TO HANDS AND/OR KNEES 05/02/22 Multivitamin (Multivitamin) 1 Each Tablet, 1 EACH PO DAILY, TAB 05/02/22 Aspirin (Low Dose Aspirin EC) 81 Mg Tablet.dr, 81 MG PO DAILY, TAB 05/02/22 Sertraline HCl (Sertraline HCl) 50 Mg Tablet, 50 MG PO HS, TAB 05/02/22 Celecoxib (Celecoxib) 200 Mg Capsule, 200 MG PO BID, CAP 05/02/22 Losartan/Hydrochlorothiazide (Losartan-Hctz 100-12.5 mg Tab) 100 Mg-12.5 Mg Tablet, 1 EACH PO DAILY, TAB 05/02/22 Methotrexate Sodium (Methotrexate) 2.5 Mg Tablet, 10 MG PO WED, TAB TAKES 4 (2.5MG) TABS 05/02/22 Discontinued Reported Medications Folic Acid (Folic Acid) Unknown Strength Tablet, PO DAILY, TAB 05/02/22 Objective Exam R Knee: Dressing C/D/I, +DF of ankle, no s/s of DVT Vital Signs Vital Signs Date Time Temp Pulse Resp B/P (MAP) Pulse Ox O2 Delivery O2 Flow Rate FiO2 04/29/23 08:25 Room Air 04/29/23 07:41 37.1 87 16 158/80 (106) 94 Room Air 04/29/23 04:03 37.2 94 14 164/75 (104) 92 Room Air 04/28/23 23:18 37.4 94 16 176/81 (112) 91 Room Air 04/28/23 20:00 Room Air 04/28/23 19:36 36.3 86 18 173/77 (109) 93 Room Air 04/28/23 15:24 36.8 85 18 180/85 (116) 92 Room Air 0.00 04/28/23 13:26 36.6 74 92 04/28/23 12:00 36.6 74 12 158/84 (108) 91 Room Air I & O 04/29/23 07:00 Intake Total 2450 ml Output Total 1575 ml Balance 875 ml Lab Results Laboratory Tests 04/29/23 05:42: Hemoglobin 12.3, Hematocrit 37 Microbiology 04/15/23 MRSA Screen - Final, Complete MRSA not isolated 04/15/23 Urine Culture - Final, Complete Gram Pos Mixed Bacterial Monik Imaging 2 views of the right knee dated 04/28/23 were reviewed from PACS and demonstrated total knee arthroplasty with components in good position Assessment and Plan Assessment Right Knee Osteoarthritis s/p TKA Problem List Right Knee Osteoarthritis s/p TKA Plan PT/OT DVT Prophylaxis Plan for home with home health tomorrow Final Diagonsis Right Knee Osteoarthritis s/p TKA Level of the visit: Level 3 (global) GERTRUDE RICHEY MD Apr 29, 2023 11:32
[2023-04-29 11:59] VITALS: BP 156/76
--- NOTE | 2023-04-29 13:33 | Anesthesia-General Post-Op ---
General Patient Condition Mental Status/LOC: Same as Preop Cardiovascular: Satisfactory Nausea/Vomiting: Absent Respiratory: Satisfactory Pain: Controlled Complications: Absent Post Op Complications Complications None Follow Up Care/Instructions Patient Instructions None needed. Anesthesia/Patient Condition Patient Condition Patient is doing well, no complaints, stable vital signs, no apparent adverse anesthesia problems. No complications reported per nursing. ABHAY JONES CRNA Apr 29, 2023 13:32
--- NOTE | 2023-04-29 14:14 | Physical Therapy Daily Note ---
PT Daily Note-Current Subjective Patient agrees to PT. Pain Numeric Pain Scale: 8 Location: Right Location Body Site: Knee Pain Description: Acute Section J - Health Conditions 1. Rarely or not at all 2. Occasionally 3. Frequently 4. Almost constantly 8. Unable to answer Pain Effect on Sleep: 4 Pain Interference with Therapy: 4 Pain Interference w/Day-to-Day: 4 Transfers SCALE: Activities may be completed with or without assistive devices. 2-Kpzdryhhrg-zxaxkqn completes the activity by him/herself with no assistance from a helper. 5-Set-up or Clean-up Assistance-helper sets up or cleans up; patient completes activity. [place] assists only prior to or following the activity. 4-Supervision or Touching Assistance-helper provides verbal cues and/or touching /steadying and/or contact guard assistance as patient completes activity. Assistance may be provided throughout the activity or intermittently. 3-Partial/Moderate Assistance-helper does LESS THAN HALF the effort. [place] lifts, holds or supports trunk or limbs, but provides less than half the effort. 2-Substantial/Maximal Assistance-helper does MORE THAN HALF the effort. [place] lifts or holds trunk or limbs and provides more than half the effort. 2-Goglfybfh-npnzpx does ALL the effort. Patient does none of the effort to complete the activity. Or, the assistance of 2 or more helpers is required for the patient to complete the activity. If activity was not attempted, code reason: 7-Patient Refused. 9-Not Applicable-not attempted and the patient did not perform the activity before the current illness, exacerbation or injury. 10-Not Attempted due to Environmental Limitations-(lack of equipment, weather restraints, etc.). 88-Not Attempted due to Medical Conditions or Safety Concerns. Sit to Lying (QC): 3 Sit to Stand (QC): 3 Chair/Kai-rc-Rsgej Xfer(QC): 3 Toilet Transfer (QC): 3 Gait Training Distance: 100' Walk 10 feet (QC): 4 Walk 50 ft with 2 Turns(QC): 4 Gait Assistive Device: FWW slow, antalgic gait sequence/minimal right knee flexion Exercises Supine Ex: Ankle pumps, Quad Set, Heel Slides, Straight leg raise Supine Reps: 15 (AAROM) Assessment Patient continues to resist all ROM right knee due to pain with meds issued. Patient currently presents with 40 degrees flexion in supine. This PT requested ARU consult due to patient is not safe to return to home at this time. Family and patient agree. PT Mcc Goals Hydrographical Technical Officer Goals PT Mcc Goals Time Frame: May 03, 2023 Roll Left & Right (QC): 6 Sit to Lying (QC): 6 Lying-Sitting on Side/Bed(QC): 6 Sit to Stand (QC): 6 Chair/Lrf-hl-Kuedg Xfer(QC): 6 Toilet Transfer (QC): 6 Walk 10 feet (QC): 6 Walk 50ft with 2 Turns (QC): 6 Walk 150 ft (QC): 6 PT Plan Treatment/Plan Treatment Plan: Continue Plan of Care Treatment Plan: Bed Mobility, Education, Functional Activity Michael, Functional Strength, Gait, Safety, Therapeutic Exercise, Transfers Treatment Duration: May 03, 2023 Frequency: 11 times per week Estimated Hrs Per Day: .5 hour per day Patient and/or Family Agrees t: Yes Time Time In: 1245 Time Out: 1310 DATE: Apr 29, 2023 Total Billed Treatment Time: 25 Total Billed Treatment 1 visit EX 15 min GT 10 min EMILY COURTNEY PT Apr 29, 2023 14:13
[2023-04-29 16:35] VITALS: BP 179/91
[2023-04-29 20:30] VITALS: BP_SYST 153; BP_SYST 164; BP_DIAS 75; BP_DIAS 95
[2023-04-29] MEDS: SERTRALINE 50 MG TABLET PO SCH (20:49)
[2023-04-29 23:43] VITALS: BP 160/77
[2023-04-30 03:04] VITALS: BP 143/73
[2023-04-30] MEDS: oxyCODONE IMMEDIATE RELEASE 5 MG TABLET PO PRN ×2 (03:24→10:05)
[2023-04-30] MEDS: LEVOTHYROXINE 88 MCG TABLET PO SCH (05:12)
[2023-04-30] MEDS: THERAPEUTIC MULTIVITAMIN W/MINERALS TABLET PO SCH (05:12)
[2023-04-30 07:37] VITALS: BP 117/75
[2023-04-30] MEDS: DOCUSATE SODIUM 100 MG CAPSULE PO SCH (09:14)
[2023-04-30] MEDS: APIXABAN 2.5 MG TABLET PO SCH (09:14)
[2023-04-30] MEDS: LOSARTAN 100 MG TABLET PO SCH (09:14)
--- NOTE | 2023-04-30 10:48 | Discharge Summary ---
Discharge Summary Hospital Course Hospital Course Date of Admission: 04/28/23 Admission Diagnosis : Right Knee Primary Osteoarthritis Family Physician/Provider: Date of Discharge: 04/30/23 Discharge Diagnosis: [Right Knee Primary Osteoarthritis s/p TKA ] Hospital Course: [ On 04/28/23, patient underwent right total knee arthroplasty. Tolerated the procedure well and was transferred to the regular floor. On the day of surgery, began mechanical DVT prophylaxis and started to work with therapy. On POD #1, had significant difficulty with therapy and began chemical DVT prophylaxis. She was evaluated by acute rehab for possible admission. On POD #2, made some progress with therapy and was ready for admit to rehab. Ultrasound was obtained of her lower leg. ] Labs and Pending Lab Test: Laboratory Tests 04/30/23 05:05: Hemoglobin 12.0, Hematocrit 37 Microbiology 04/15/23 MRSA Screen - Final, Complete MRSA not isolated 04/15/23 Urine Culture - Final, Complete Gram Pos Mixed Bacterial Monik Home Meds Active Reported Folic Acid 0.8 Mg Tablet 0.8 Mg PO DAILY Levothyroxine Sodium 88 Mcg Tablet 88 Mcg PO DAILY Vitamin D3 (Cholecalciferol (Vitamin D3)) 25 Mcg (1000 Unit) Capsule 25 Mcg PO DAILY Simvastatin 20 Mg Tablet 20 Mg PO HS Voltaren Arthritis Pain (Diclofenac Sodium) 1 % Gel..gram. 1 Applic TP Q6H PRN APPLY TO HANDS AND/OR KNEES Multivitamin 1 Each Tablet 1 Each PO DAILY Low Dose Aspirin EC (Aspirin) 81 Mg Tablet.dr 81 Mg PO DAILY Sertraline HCl 50 Mg Tablet 50 Mg PO HS Celecoxib 200 Mg Capsule 200 Mg PO BID Losartan-Hctz 100-12.5 mg Tab (Losartan/Hydrochlorothiazide) 100 Mg-12.5 Mg Tablet 1 Each PO DAILY Methotrexate (Methotrexate Sodium) 2.5 Mg Tablet 10 Mg PO WED TAKES 4 (2.5MG) TABS Assessment/Pt Instructions WBAT on right leg; use walker for assist. Dry dressing daily to incision site; do not get incision wet. Inpatient rehab for motion/strengthening/gait training. F/U with Dr. Joey Weir ~2 weeks after surgery. Discharge Physical Examination Vital Signs Vital Signs Date Time Temp Pulse Resp B/P (MAP) Pulse Ox O2 Delivery O2 Flow Rate FiO2 04/30/23 08:00 Room Air 04/30/23 07:37 36.7 99 16 117/75 (89) 94.00 04/30/23 03:04 93 Extremity: Other (R Knee: Incision C/D/I, +DF of ankle, + calf tenderness, + Sunitha's--ultrasound obtained) Allergies: Coded Allergies: morphine (Verified Allergy, Mild, 04/28/23) RED STREAKS UP THE ARM SOON IT WAS ADMINISTERED. Sulfa (Sulfonamide Antibiotics) (Verified Allergy, Unknown, 04/15/23) TAKES METHOTREXATE--WAS INSTRUCTED TO NEVER TAKE IT. Discharge Summary Date of Admission Date of Discharge JOEY WEIR MD Apr 30, 2023 10:48
[2023-04-30 11:27] VITALS: BP 130/75
[2023-04-30 12:30] VITALS: BP 130/75
--- NOTE | 2023-04-30 14:28 | Diagnostic Imaging Report ---
PROCEDURE: US right lower extremity venous. TECHNIQUE: Multiple real-time grayscale images were obtained over the right lower extremity in various projections. Additional spectral analysis and color Doppler duplex images were also obtained. INDICATION: Right leg pain. Patient is status post right knee replacement. FINDINGS: There is no evidence of right lower extremity DVT. Right lower extremity deep venous system shows normal compressibility with normal response to augmentation and Valsalva. No fluid collection or mass is detected. IMPRESSION: No evidence of right lower extremity DVT. Dictated by: Dictated on workstation # [id number]
== END 2023-04-30 12:00 ==
LOC: SDC 06:10 → 4TH 11:18 → SDC 04-30 12:00
PROVIDERS: ATTEND Orthopaedic Surgery
DX: M17.11 Unilateral primary osteoarthritis, right knee (principal); E66.01 Morbid (severe) obesity due to excess calories; Z68.41 Body mass index [BMI] 40.0-44.9, adult
CPT/HCPCS: 27447; 73560; 73700; 81000; 87081; 87088; 93005; 97110; 97116; 97162; 97166; 97535; C1713 ×4; C1776 ×3; 36415; 85014; 85018

== ENCOUNTER 2023-04-30 11:50 | Inpatient (IN) | payer MEDICARE, OTHER ==
[~2023-04-30] VITALS: Ht 162.6 cm; Wt 105.5 kg
[~2023-04-30 11:50] MED LIST changes: +FOLI0.8T4 PO; +LEVO88TA54 PO
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
[2023-04-30] MEDS ORDERED: DOCUSATE SODIUM 100 MG CAPSULE PO PRN (12:15)
[2023-04-30] MEDS ORDERED: LOPERAMIDE 2 MG CAPSULE PO PRN (12:15)
[2023-04-30] MEDS ORDERED: CALCIUM CARBONATE 500 MG CHEW TABLET PO PRN (12:15)
[2023-04-30] MEDS ORDERED: LACTULOSE SYRUP 10GM/15ML 30ML UDC PO PRN (12:15)
[2023-04-30] MEDS ORDERED: ALPRAZolam 0.25 MG TABLET PO PRN (12:15)
[2023-04-30] MEDS ORDERED: BISACODYL 10 MG SUPPOSITORY PR PRN (12:15)
[2023-04-30] MEDS ORDERED: MELATONIN 3 MG TABLET PO PRN (12:15)
[2023-04-30] MEDS ORDERED: guaiFENesin/CODEINE 10ML UDC PO PRN (12:15)
[2023-04-30] MEDS ORDERED: ONDANSETRON 4 MG ORAL DISSOLVE TABLET PO PRN (12:15)
[2023-04-30] MEDS ORDERED: Sodium Phosphate/Sodium Biphosphate ADULT enema PR PRN (12:15)
--- NOTE | 2023-04-30 12:23 | Physical Therapy Evaluation ---
PT Evaluation-General Medical Diagnosis Admission Date Apr 30, 2023 at 11:50 Medical Diagnosis: R TKA Onset Date: Apr 28, 2023 Therapy Diagnosis Therapy Diagnosis: Decreased functional mobility Precautions Precautions/Isolations: Fall Prevention, Standard Precautions Weight Bear Status Right Lower Extremity: Right Weight Bearing/Tolerated Left Lower Extremity: Left Full Weight Bearing Referral Physician: Chino Reason for Referral: Evaluation/Treatment Medical History Pertinent Medical History: Arthritis, HTN, OA Current History R TKA on 04/28/23; Admitted to ARU on 04/30/23 Reviewed History: Yes Social History Home: [facility] Current Living Status: Significant Other Entry Into Home: Stairs Without Railing PT Steps Into Home: 3 PT Steps Inside Home: 0 Pt lives in a two-story home with her with 3 steps to enter/exit with no HR. Pt does not use the second story. Tub-shower, SC, GBs, Standard toilet Prior Prior Level of Function SCALE: Activities may be completed with or without assistive devices. 5-Abxisnfnvd-xmryeaj completes the activity by him/herself with no assistance from a helper. 5-Set-up or Clean-up Assistance-helper sets up or cleans up; patient completes activity. [place] assists only prior to or following the activity. 4-Supervision or Touching Assistance-helper provides verbal cues and/or touching/steadying and/or contact guard assistance as patient completes ac tivity. Assistance may be provided throughout the activity or intermittently. 3-Partial/Moderate Assistance-helper does LESS THAN HALF the effort. [place] lifts, holds or supports trunk or limbs, but provides less than half the effort. 2-Substantial/Maximal Assistance-helper does MORE THAN HALF the effort. [place] lifts or holds trunk or limbs and provides more than half the effort. 3-Ufeznlnve-wrbrau does ALL the effort. Patient does none of the effort to complete the activity. Or, the assistance of 2 or more helpers is required for the patient to complete the activity. If activity was not attempted, code reason: 7-Patient Refused. 9-Not Applicable-not attempted and the patient did not perform the activity before the current illness, exacerbation or injury. 10-Not Attempted due to Environmental Limitations-(lack of equipment, weather restraints, etc.). 88-Not Attempted due to Medical Conditions or Safety Concerns. Bed Mobility: 6 Transfers (B,C,W/C): 6 Gait: 6 Stairs: 6 Wheelchair Mobility: 9 Indoor Mobility (Ambulation): Independent Stairs: Independent Prior Devices Use: None At PLOF, pt was Ind with no AD and driving. Pt reports having a FWW and SC, but may need a transfer bench. PT Evaluation-Current Subjective Pt reports she is doing well and is agreeable to PT. Pt reported R knee pain at 5/10. Pain Numeric Pain Scale: 5-Moderate Pain Location: Right Location Body Site: Knee Section J - Health Conditions 1. Rarely or not at all 2. Occasionally 3. Frequently 4. Almost constantly 8. Unable to answer Pain Effect on Sleep: 2 Pain Interference with Therapy: 3 Pain Interference w/Day-to-Day: 2 Pt/Family Goals Safely return home with spouse Objective Patient Orientation: Person, Place, Time, Situation Attachments: IV ROM/Strength ROM Upper Extremities See OT eval ROM Lower Extremities L LE ROM = WFL R knee AROM = -5 - 80 degrees Strength Upper Extremities See OT eval Strength Lower Extremities L LE MMT = 4-/5 grossly R LE MMT = 3-/5 grossly Integumentary/Posture Integumentary See nurses note Bowel Incontinence: No Bladder Incontinence: No Sensory Vision: Functional Hearing: Functional Sensation Right Upper Extremit: Intact Sensation Left Upper Extremity: Intact Sensation Right Lower Extremit: Intact Sensation Left Lower Extremity: Intact Transfers Roll Left & Right (QC): 3 (Min A ) Sit to Lying (QC): 3 (Min A ) Lying to Sitting/Side of Bed(Q: 3 (Min A ) Sit to Stand (QC): 4 (CGA ) Chair/Bri-dv-Dvvic Xfer(QC): 4 (CGA ) Toilet Transfer (QC): 4 (CGA ) Car Transfer (QC): 3 (Min A ) Gait Does the Patient Walk?: Yes Mode of Locomotion: Walk Anticipated Mode of Locomotion: Walk Walk 10 feet (QC): 3 (Min A ) Walk 50 ft with 2 Turns(QC): 3 (Min A ) Walk 150 ft (QC): 88 (Pain ) Walking 10ft/uneven surface-QC: 3 (Min A ) Gait Assistive Device: FWW Wheelchair Training Does the Pt Use a Wheelchair?: No Wheel 50 ft with 2 turns (QC): 9 Wheel 150 ft (QC): 9 Type of Wheelchair: N/A Stairs #of Steps: 1 1 Step (curb) (QC): 3 (Min A ) 4 Steps (QC): 88 (Pain ) 12 Steps (QC): 88 (Pain ) Walking Assistive Device: Walker Balance Sitting Static: Normal Sitting Dynamic: Good Standing Static: Fair Standing Dynamic: Fair Picking up an Object (QC): 4 (With tape rules printing machine operator ) Special Test Comments KU standing balance score = 2+/5 (goal = 4+/5) Treatment PT eval completed Assessment/Needs Pt tolerated PT well with good effort Rehab Potential: Good Post Rehab Potential-Barriers: Pain Equipment Needs Transfer bench PT Business Technology Teacher Goals Business Technology Teacher Goals PT Half-Way Goals Time Frame: May 14, 2023 Roll Left to Right (QC): 6 (Pt will be Mod I with functional mobility to safely return home with spouse. ) Sit to Lying (QC): 6 (Pt will be Mod I with functional mobility to safely return home with spouse. ) Lying-Sitting on Side/Bed(QC): 6 (Pt will be Mod I with functional mobility to safely return home with spouse. ) Sit to Stand (QC): 6 (Pt will be Mod I with functional mobility to safely return home with spouse. ) Chair/Wah-hz-Cwolj Xfer(QC): 6 (Pt will be Mod I with functional mobility to safely return home with spouse. ) Toilet/Commode Transfer (QC): 6 (Pt will be Mod I with functional mobility to safely return home with spouse. ) Car Transfer (QC): 6 (Pt will be Mod I with functional mobility to safely return home with spouse. ) Does the Patient Walk: Yes Walk 10 feet (QC): 6 (Pt will be Mod I with functional mobility to safely return home with spouse. ) Walk 10ft-Uneven Surface(QC): 6 (Pt will be Mod I with functional mobility to safely return home with spouse. ) Walk 50ft with 2 Turns (QC): 6 (Pt will be Mod I with functional mobility to safely return home with spouse. ) Walk 150 ft (QC): 6 (Pt will be Mod I with functional mobility to safely return home with spouse. ) Does the Pt use WC or Scooter?: No Wheel 50 feet with 2 turns (QC: 9 Type: N/A Wheel 150 feet: 9 Type: N/A 1 Step (curb) (QC): 6 (Pt will be Mod I with functional mobility to safely return home with spouse. ) 4 Steps (QC): 6 (Pt will be Mod I with functional mobility to safely return home with spouse. ) 12 Steps (QC): 9 Picking up an Object (QC): 6 (Mod I with tape rules printing machine operator ) KU standing balance goal = 4+/5 PT Plan Problem List Problem List: Activity Tolerance, Functional Strength, Safety, Balance, Gait, Transfer, Bed Mobility, ROM Treatment/Plan Treatment Plan: Continue Plan of Care Treatment Plan: Bed Mobility, Education, Functional Activity Michael, Functional Strength, Group Therapy, Gait, Safety, Therapeutic Exercise, Transfers Treatment Duration: May 14, 2023 Frequency: At least 5 of 7 days/Wk (IRF) Estimated Hrs Per Day: 1.5 hours per day Patient and/or Family Agrees t: Yes Safety Risks/Education Patient Education: Gait Training, Transfer Techniques, Steps, Reviewed Use of Ice, Correct Positioning, Safety Issues Teaching Recipient: Patient Teaching Methods: Demonstration, Discussion Response to Teaching: Verbalize Understanding, Return Demonstration, Reinforcement Needed Discharge Recommendations Therapy Discharge Recommendati: Home & Family, Post Acute PT Equpiment Recommendations-D/C: Shower Chair (transfer bench ) Discharge Status/Home Program Cont per POC Barriers to Progress R knee pain/ROM Target Placement Home with spouse Time Time In: 1205 Time Out: 1230 DATE: Apr 30, 2023 Total Billed Treatment Time: 25 Total Billed Treatment 25 min total from 5851-0714 1 visit SAHIL CHU PT Apr 30, 2023 12:23
[2023-04-30 12:30] VITALS: BP 125/59
--- NOTE | 2023-04-30 12:57 | Occupational Therapy Eval ---
OT Evaluation-General/PLF Medical Diagnosis Admission Date Apr 30, 2023 at 11:50 Medical Diagnosis: R TKA Onset Date: Apr 28, 2023 Therapy Diagnosis Therapy Diagnosis: decreased ADL status, weakness Precautions Precautions/Isolations: Fall Prevention, Standard Precautions Referral Physician: Chino Chin Reason: Evaluation/Treatment Medical History Pertinent Medical History: Arthritis, HTN, OA Additional Medical History b/l cataract sx, carpal tunnel sx, GERD, high blood pressure, hyperthyroidism, RA Current History s/p R TKA 04/28/23 Social History Home: [facility] Current Living Status: Significant Other Entry Into Home: Stairs Without Railing Steps Into Home: 3 Steps Inside Home: 0 ADL-Prior Level of Function SCALE: Activities may be completed with or without assistive devices. 1-Moblizbbfx-pxmgjbn completes the activity by him/herself with no assistance from a helper. 5-Set-up or Clean-up Assistance-helper sets up or cleans up; patient completes activity. [place] assists only prior to or following the activity. 4-Supervision or Touching Assistance-helper provides verbal cues and/or touching/steadying and/or contact guard assistance as patient completes activity. Assistance may be provided throughout the activity or intermittently. 3-Partial/Moderate Assistance-helper does LESS THAN HALF the effort. [place] l ifts, holds or supports trunk or limbs, but provides less than half the effort. 2-Substantial/Maximal Assistance-helper does MORE THAN HALF the effort. [place] lifts or holds trunk or limbs and provides more than half the effort. 1-Dgbrbvmbb-ovnate does ALL the effort. Patient does none of the effort to complete the activity. Or, the assistance of 2 or more helpers is required for t he patient to complete the activity. If activity was not attempted, code reason: 7-Patient Refused. 9-Not Applicable-not attempted and the patient did not perform the activity before the current illness, exacerbation or injury. 10-Not Attempted due to Environmental Limitations-(lack of equipment, weather restraints, etc.). 88-Not Attempted due to Medical Conditions or Safety Concerns. ADL PLOF Comments Pt reports being primarily independent with ADLS at PLOF, requiring assistance with donning bra due to L hand difficulties. She doesn't use AD at PLOF. Pt has a tub/shower with GBS. Pt and spouse believe pt has a SC in the garage. Self Care: Needed Some Help Functional Cognition: Independent DME/Equipment: Grab Bars OT Current Status Subjective Pt reports 5/10 pain in R knee. Mental Status/Objective Patient Orientation: Person, Place, Time, Situation Current Glasses/Contacts: Yes Hearing Aids: No Dentures/Partials: No Hand Dominance: Right Upper Extremity ROM WFL BUEs. Pt reports slightly decreased L elbow function (bursitis), and L hand function (prior carpal tunnel sx). Pt reports some days are better than others. Upper Extremity Coordination Slightly decreased L hand. WFL on this date, but pt reports some days she has difficulty gripping. Upper Extremity Sensation WFL Upper Extremity Strength Grossly 3+/5 ADL-Treatment Eating (QC): 5 (set up to open containers) Oral Hygiene (QC): 5 (seated) Shower/Bathe Self (QC): 3 (Assist R foot and buttocks.) Upper Body Dressing (QC): 5 (shirt only) Lower Body Dressing (QC): 3 (assist threading RLE. CGA in stand while pt performed pant hike.) On/Off Footwear (QC): 3 (Assist R sock, pt able to complete L sock.) Toileting Hygiene (QC): 3 (Assist with buttocks.) Other Treatments Pt participated in OT evaluation. She provided information about PLOF and home set, and participated in UE screen. Pt stood from EOB, min A with VCs for hand placement with transfer. Pt then transferred to w/c with CGA and taken to room on ARU. Sit to stand from w/c, CGA with VCs. Pt transferred to recliner and positioned to comfort. Post eval, pt in recliner, call light in reach and all needs met. Education OT Patient Education: Correct positioning, Energy conservation, Modified ADL techniques, Progress toward Goal/Update tx plan, Purpose of tx/functional activities, Rehab process Teaching Recipient: Patient Teaching Methods: Discussion Response to Teaching: Verbalize Understanding BIMS CAM BIMS Expression of Ideas and Wants: Without Difficulty Understanding Verbal Content: Understands Brief Interview/Mental Status: Yes IRF GILBERT BIMS: IRF GILBERT BIMS Response (Comments) Value Repitition of Three Words Three 3 Recalls Socks Yes, No Cue Required 2 Recalls Blue Yes, No Cue Required 2 Recalls Bed Yes, No Cue Required 2 Year Correct 3 Month Accurate Within 5 Days 2 Day Correct 1 Total 15 Should Staff Asses[address] Mental [address] No CAM Mental Status Change/Baseline: 0 Inattention: 0 Disorganized thinkin Altered level of consciousness: 0 OT Jail Goals Geotechnical Engineer Goals Time Frame: May 16, 2023 Eating (QC): 6 Oral Hygiene (QC): 6 Toileting Hygiene (QC): 6 Shower/Bathe Self (QC): 6 Upper Body Dressing (QC): 6 (IND with shirt only. No bra) Lower Body Dressing (QC): 6 On/Off Footwear (QC): 6 Additional Goals: 1-Demonstrate ADL Tasks, 2-Verbalize Understanding, 3- ImproveStrength/Michael 1=Demonstrate adherence to instructed precautions during ADL tasks. 2=Patient will verbalize/demonstrate understanding of assistive donte steve/modifications for ADL. 3=Patient will improve strength/tolerance for activity to enable patient to perform ADL's. OT Education/Plan Problem List/Assessment Assessment: Decreased Activ Tolerance, Decreased UE Strength, Impaired Funct Balance, Impaired I ADL's, Impaired Self-Care Skills Discharge Recommendations Plan/Recommendations: Continue POC Treatment Plan/Plan of Care Patient would benefit from OT for education, treatment and training to promote independence in ADL's, mobility, safety and/or upper extremity function for ADL' s. Plan of Care: ADL Retraining, Functional Mobility, Group Exercise/Act as Ind, UE Funct Exercise/Act Treatment Duration: May 16, 2023 Frequency: At least 5 of 7 days/Wk (IRF) Estimated Hrs Per Day: 1.5 hours per day Agreement: Yes Rehab Potential: Good Time Start Time: 11:50 Stop Time: 12:05 DATE: Apr 30, 2023 Total Time Billed (hr/min): 15 Billed Treatment Time 1, MILLY MARTINEZ OT Apr 30, 2023 12:57
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
--- NOTE | 2023-04-30 14:48 | Occupational Ther Daily Note ---
OT Current Status-Daily Note Subjective Pt alert, sitting in recliner. Pt agrees to therapy. Pt reported pain in R knee 01/25, nrsg notified. PT/OT cotreat ([id number]), skills of 2 clinicians required to decrease fall risk, increase functional mobility, and increase awareness for functional tasks. PT focus on ambulationg with FWW, car transfers, bed mobility, and pain management. OT focus on ADLs, functional mobility, transfers, and pain management for functional tasks. Mental Status/Objective Patient Orientation: Person, Place, Time, Situation ADL-Treatment Therapy Code Descriptions/Definitions Functional [place] Measure: 0=Not Assessed/NA 4=Minimal Assistance 1=Total Assistance 5=Supervision or Setup 2=Maximal Assistance 6=Modified [place] 3=Moderate Assistance 7=Complete IndependenceSCALE: Activities may be completed with or without assistive devices. 9-Tljusptwfq-svnkmbf completes the activity by him/herself with no assistance from a helper. 5-Set-up or Clean-up Assistance-helper sets up or cleans up; patient completes activity. [place] assists only prior to or following the activity. 4-Supervision or Touching Assistance-helper provides verbal cues and/or touching/steadying and/or contact guard assistance as patient completes activity. Assistance may be provided throughout the activity or intermittently. 3-Partial/Moderate Assistance-helper does LESS THAN HALF the effort. [place] lifts, holds or supports trunk or limbs, but provides less than half the effort. 2-Substantial/Maximal Assistance-helper does MORE THAN HALF the effort. [place] lifts or holds trunk or limbs and provides more than half the effort. 2-Hpauxbwxs-iqzaey does ALL the effort. Patient does none of the effort to complete the activity. Or, the assistance of 2 or more helpers is required for the patient to complete the activity. If activity was not attempted, code reason: 7-Patient Refused. 9-Not Applicable-not attempted and the patient did not perform the activity bef ore the current illness, exacerbation or injury. 10-Not Attempted due to Environmental Limitations-(lack of equipment, weather r estraints, etc.). 88-Not Attempted due to Medical Conditions or Safety Concerns. Eating (QC): 5 (Pt verbalized requiring assistance to open packages.) Bathing Location: L Arm, R Arm, L Upper Leg, R Upper Leg, L Lower Leg (including foot), Chest, Abdomen, Perineal Area Shower/Bathe Self (QC): 3 (Assistance to wash R foot, pt able to wash L foot. Assist to wash buttocks due to pain when standing and unable to release grab bars in shower. ) Upper Body Dressing (QC): 5 (Pt able to don/doff shirt sitting in w/c with set up.) Lower Body Dressing (QC): 3 (Pt able to thread L foot into underwear, assistance to thread R foot. Steadying assist in standing with FWW while pt hikes underwear over hips.) On/Off Footwear: 3 (Pt able to doff socks using toes to pull off R sock, completed figure-four technique to don/doff L sock. Assistance to don R sock.) Toileting Hygiene (QC): 3 (Will need assistance to clean buttocks after BM. SBA if only urinating w/no BM.) Toilet Transfer (QC): 4 (Steadying assist with fww and utilizing grab bars for support. ) Other Treatment PT/OT cotreat ([id number]). Pt ambulated from recliner->bathroom to complete toileting. Pt steadying assist for toileting hygiene, did not require assist to wash buttocks due to no BM. Pt then working with PT on car transfers, ambulation on different surfaces, and transfers while OTAS assist with positioning, pain management, and energy conservation. Then pt working on ADLs and activity tolerance for functional tasks. Pt ambulated back to bed with FWW, CGA. PT/OT finishing session working on bed mobility, MIN A. Placed cold pack on R knee for pain management/comfort. Pt displayed many facial grimaces and vocalized pain during functional mobility and transfers. Ended session with pt supine in bed with call light/phone in reach. All needs met. See PT notes for further info on ambulation. Education OT Patient Education: Energy conservation Teaching Recipient: Patient Teaching Methods: Discussion Response to Teaching: Verbalize Understanding OT Protein Specialist Goals Assisted Goals Time Frame: May 16, 2023 Acute change in mental status: 0 Inattention: 0 Disorganized thinkin Altered level of consciousness: 0 Eating (QC): 6 Oral Hygiene (QC): 6 Toileting Hygiene (QC): 6 Shower/Bathe Self (QC): 6 Upper Body Dressing (QC): 6 (IND with shirt only. No bra) Lower Body Dressing (QC): 6 On/Off Footwear (QC): 6 Additional Goals: 1-Demonstrate ADL Tasks, 2-Verbalize Understanding, 3-ImproveStrength/Michael 1=Demonstrate adherence to instructed precautions during ADL tasks. 2=Patient will verbalize/demonstrate understanding of assistive devices/modifications for ADL. 3=Patient will improve strength/tolerance for activity to enable patient to perform ADL's. OT Education/Plan Problem List/Assessment Assessment: Decreased Activ Tolerance, Impaired Bed Mobility, Impaired Funct Balance, Impaired Self-Care Skills Discharge Recommendations Plan/Recommendations: Continue POC Treatment Plan/Plan of Care Patient would benefit from OT for education, treatment and training to promote independence in ADL's, mobility, safety and/or upper extremity function for AD L's. Plan of Care: ADL Retraining, Functional Mobility, Group Exercise/Act as Ind, UE Funct Exercise/Act Treatment Duration: May 16, 2023 Frequency: At least 5 of 7 days/Wk (IRF) Estimated Hrs Per Day: 1.5 hours per day Agreement: Yes Rehab Potential: Good Time Start Time: 13:00 Stop Time: 14:20 DATE: Apr 30, 2023 Total Time Billed (hr/min): 80 Billed Treatment Time 1 visit- FA 2 (30 mins) ADL 3 (50 mins), Cotreat OT/PT ([id number]) GEORGE DESOUZA Apr 30, 2023 14:48
--- NOTE | 2023-04-30 15:01 | Physical Therapy Daily Note ---
PT Daily Note-Current Subjective Pt sitting in recliner after finishing lunch upon arrival. Pt agrees to PT/OT co-treat. Pt reported pain in R knee 610, nrsg notified. PT/OT cotreat ([id number]), skills of 2 clinicians required to decrease fall risk, increase functional mobility, and increase awareness for functional tasks. PT focus on ambulating with FWW, car transfers, bed mobility, and pain management. OT focus on ADLs, functional mobility, transfers, and pain management for functional tasks. Pain Numeric Pain Scale: 6 Location: Right Location Body Site: Knee Pain Description: Ache, Tightness Section J - Health Conditions 1. Rarely or not at all 2. Occasionally 3. Frequently 4. Almost constantly 8. Unable to answer Pain Effect on Sleep: 2 Pain Interference with Therapy: 3 Pain Interference w/Day-to-Day: 3 Mental Status Patient Orientation: Person, Place, Time, Situation Attachments: Polar Pack Transfers SCALE: Activities may be completed with or without assistive devices. 0-Ysntwiidac-ncqrsoc completes the activity by him/herself with no assistance from a helper. 5-Set-up or Clean-up Assistance-helper sets up or cleans up; patient completes activity. [place] assists only prior to or following the activity. 4-Supervision or Touching Assistance-helper provides verbal cues and/or touching/steadying and/or contact guard assistance as patient completes activity. Assistance may be provided throughout the activity or intermittently. 3-Partial/Moderate Assistance-helper does LESS THAN HALF the effort. [place] lifts, holds or supports trunk or limbs, but provides less than half the effort. 2-Substantial/Maximal Assistance-helper does MORE THAN HALF the effort. [place] lifts or holds trunk or limbs and provides more than half the effort. 8-Eobmapdov-jcdoik does ALL the effort. Patient does none of the effort to complete the activity. Or, the assistance of 2 or more helpers is required for the patient to complete the activity. If activity was not attempted, code reason: 7-Patient Refused. 9-Not Applicable-not attempted and the patient did not perform the activity before the current illness, exacerbation or injury. 10-Not Attempted due to Environmental Limitations-(lack of equipment, weather restraints, etc.). 88-Not Attempted due to Medical Conditions or Safety Concerns. Roll Left & Right (QC): 3 Sit to Lying (QC): 3 Lying to Sitting/Side of Bed(Q: 3 Sit to Stand (QC): 4 Chair/Hqq-vc-Dnyza Xfer(QC): 4 Toilet Transfer (QC): 4 Car Transfer (QC): 3 Weight Bearing Right Lower Extremity: Right Weight Bearing/Tolerated Left Lower Extremity: Left Full Weight Bearing Gait Training Does the Patient Walk?: Yes Distance: 50' Walk 10 feet (QC): 4 Walk 50 ft with 2 Turns(QC): 4 Walk 150 ft (QC): 88 Walking 10ft/uneven surface-QC: 4 Gait Persons Needed: 1 Gait Assistive Device: FWW Walks w/analgetic gait pattern Wheelchair Training Does the Pt Use a Wheelchair?: No Stair Training 1 Step (curb) (QC): 88 4 Steps (QC): 88 12 Steps (QC): 88 Balance Picking up an Object (QC): 4 Treatments PT/OT cotreat ([id number]). Pt ambulated from recliner->bathroom to complete toileting. HEEL PACKER provided steadying assist for toileting. Pt then worked PT QC scoring items including on car transfers, ambulation with different surfaces, and transfers while OTAs assist with positioning, pain management, and energy conservation. Then pt working on ADLs and activity tolerance for functional tasks (see OT note). Pt ambulated back to bed with FWW, CGA. PT/OT finishing session working on bed mobility, MIN A. Placed cold pack on R knee for pain management/comfort. Ended session with pt supine in bed with call light/phone in reach. All needs met. Assessment Current Status: Fair Progress Pain limits pt's ability to complete tasks more independently. PT Skilled Nursing Goals Skilled Nursing Goals PT User Experience Designer Goals Time Frame: May 14, 2023 Roll Left & Right (QC): 6 (Pt will be Mod I with functional mobility to safely return home with spouse. ) Sit to Lying (QC): 6 (Pt will be Mod I with functional mobility to safely return home with spouse. ) Lying-Sitting on Side/Bed(QC): 6 (Pt will be Mod I with functional mobility to safely return home with spouse. ) Sit to Stand (QC): 6 (Pt will be Mod I with functional mobility to safely return home with spouse. ) Chair/Akr-ih-Hbjmz Xfer(QC): 6 (Pt will be Mod I with functional mobility to safely return home with spouse. ) Toilet Transfer (QC): 6 (Pt will be Mod I with functional mobility to safely return home with spouse. ) Car Transfer (QC): 6 (Pt will be Mod I with functional mobility to safely return home with spouse. ) Does the Patient Walk: Yes Walk 10 feet (QC): 6 (Pt will be Mod I with functional mobility to safely return home with spouse. ) Walk 50ft with 2 Turns (QC): 6 (Pt will be Mod I with functional mobility to safely return home with spouse. ) Walk 150 ft (QC): 6 (Pt will be Mod I with functional mobility to safely return home with spouse. ) Walking 10ft on Uneven Surface: 6 (Pt will be Mod I with functional mobility to safely return home with spouse. ) 1 Step (curb) (QC): 6 4 Steps (QC): 6 12 Steps (QC): 9 Picking up an Object (QC): 6 Does the Pt use WC or Scooter?: No Wheel 50 feet with 2 turns (QC: 9 Wheel 150 feet: 9 PT Plan Problem List Problem List: Activity Tolerance, Functional Strength, Gait, Transfer, Bed Mobility Treatment/Plan Treatment Plan: Continue Plan of Care Treatment Plan: Bed Mobility, Education, Functional Activity Michael, Functional Strength, Group Therapy, Gait, Safety, Therapeutic Exercise, Transfers Treatment Duration: May 14, 2023 Frequency: At least 5 of 7 days/Wk (IRF) Estimated Hrs Per Day: 1.5 hours per day Patient and/or Family Agrees t: Yes Safety Risks/Education Patient Education: Gait Training, Transfer Techniques, Reviewed Use of Ice, Correct Positioning, Safety Issues Teaching Recipient: Patient Teaching Methods: Discussion Response to Teaching: Verbalize Understanding Time Time In: 1300 Time Out: 1420 DATE: Apr 30, 2023 Total Billed Treatment Time: 80 Total Billed Treatment Co-treat w/OT for 80m ([id number]) 1, FA x5 (80m) MATEO RODRIGEZ PTA Apr 30, 2023 15:01
--- NOTE | 2023-04-30 15:18 | Speech Therapy Progress Note ---
Therapy Progress Note Swallow and cognitive screens completed, no concerns noted. Speech therapy services are not indicated at this time. RAFA CHILDS Apr 30, 2023 15:18
[2023-04-30] MEDS: ACETAMINOPHEN 325 MG TABLET PO PRN (16:55)
[2023-04-30 21:07] VITALS: BP 135/60
[2023-04-30] MEDS: DOCUSATE SODIUM 100 MG CAPSULE PO SCH (21:44)
[2023-04-30] MEDS: SENNA W/DOCUSATE TABLET PO SCH (21:44)
[2023-04-30] MEDS: APIXABAN 2.5 MG TABLET PO SCH (21:44)
[2023-04-30] MEDS: oxyCODONE IMMEDIATE RELEASE 5 MG TABLET PO PRN (22:32)
[2023-05-01] MEDS ORDERED: DICLOFENAC 1% GEL 50 GM TUBE TP PRN (05:15)
[2023-05-01] MEDS: LEVOTHYROXINE 88 MCG TABLET PO SCH (05:43)
--- NOTE | 2023-05-01 06:19 | Individualized Plan of Care ---
Individualized Plan of Care Rehab Nursing IPOC Order Admission Date Apr 30, 2023 at 11:50 Current Orders Orders Admission Arrival Bed Request (04/30/23 11:59) Admission Order(Inpt,Obs,Sdc) (04/30/23 12:08) Vital Signs: Per Unit Policy ( 08,16,00 (04/30/23 12:08) Benji Alexandra 09,21 (04/30/23 12:08) Sequential Compression Device [id number] (04/30/23 12:08) Computer Lab Assistant-Inpt Rehab Con (04/30/23 12:08) Rehab Nursing Orders-Ipoc (04/30/23 12:08) Physical Therapy Rehab Orders (04/30/23 12:08) Occupational Therapy Rehab Ord (04/30/23 12:08) Speech Therapy Rehab Orders (04/30/23 12:08) Cbc With Automated Diff (05/01/23 06:00) Comprehensive Metabolic Panel (05/01/23 06:00) Precautions (Aru) (04/30/23 12:08) Weekly Weight WEEK (04/30/23 12:08) Rehab-Intensity Of Therapy (04/30/23 12:08) Initiate Admission Nursing Pro .admission (04/30/23 12:08) Alprazolam Tablet (Alprazolam Tablet) (04/30/23 12:15) Calcium Carbonate Chew Tablet (Calcium C (04/30/23 12:15) Diphenhydramine Tablet (Diphenhydramine (04/30/23 12:15) Docusate Sodium Capsule (Docusate Sodium (04/30/23 21:00) Docusate Sodium Capsule (Docusate Sodium (04/30/23 12:15) Bisacodyl Suppository (Bisacodyl Supposi (04/30/23 12:15) Lactulose Oral Solution (Enulose Oral So (04/30/23 12:15) Na Phos/Na Biphos Adult Enema (Na Phos/N (04/30/23 12:15) Guaifenesin/Codeine Syrup (Guaifenesin/C (04/30/23 12:15) Loperamide Capsule (Loperamide Capsule) (04/30/23 12:15) Melatonin Tablet (Melatonin Tablet) (04/30/23 12:15) Polyethylene Glycol Powder (Polyethylen (04/30/23 21:00) Ondansetron Oral Dissolve Tab (Ondanset (04/30/23 12:15) Senna W/Docusate Tablet (Senna W/Docusat (04/30/23 21:00) Acetaminophen Tablet (Acetaminophen Ta (04/30/23 12:15) Code/Resuscitation (04/30/23 12:08) Initiate Admission Nursing Pro .admission (04/30/23 12:08) Apixaban Tablet (Apixaban Tablet) (04/30/23 21:00) Patient Visit (04/30/23 ) Treat. Speech/Lang/Voice (04/30/23 ) Patient Visit (04/30/23 ) Functional Activities, Ea 15 (04/30/23 ) General/Regular (04/30/23 Dinner) Oxycodone Immediate Rel Tablet (Oxycodon (04/30/23 20:30) Aspirin Enteric Coated Tablet (Ecotrin T (05/01/23 09:00) Diclofenac 1% Gel (Diclofenac 1% Gel) (05/01/23 05:15) Levothyroxine Tablet (Levothyroxine Tabl (05/01/23 07:00) Sertraline Tablet (Sertraline Tablet) (05/01/23 21:00) Celecoxib Capsule (Celecoxib Capsule) (05/01/23 09:00) Vitamin D3 Tablet (Vitamin D3 Tablet) (05/01/23 09:00) Folic Acid Tablet (Folic Acid Tablet) (05/01/23 09:00) Losartan Tablet (Losartan Tablet) (05/01/23 09:00) Multivitamin W/Mineral Tablet (Multivita (05/01/23 07:00) Atorvastatin Tablet (Atorvastatin Tablet (05/01/23 21:00) Hydrochlorothiazide Tablet (Hydrochlorot (05/01/23 09:00) Incentive Spirometry (Nursing) Q2H (05/01/23 08:22) Potassium Chloride (Tablet) (Potassium C (05/01/23 10:00) Potassium Chloride (Tablet) (Potassium C (05/02/23 07:00) Aspirin Enteric Coated Tablet (Ecotrin T (05/02/23 21:00) Patient Visit (05/01/23 ) Functional Activities, Ea 15 (05/01/23 ) Gait Training, Ea 15 Min (05/01/23 ) Exercise Therap, Ea 15 Min (05/01/23 ) Rehab Nursing Orders: Ongoing Assess. of Function Status, Bladder Management, Bladder Scan, Bladder Training, Bowel Management, Bowel Training, Disease Management & Educaiton, DVT Prophylaxis, Fall Prevention, Fluid/Electrolyte/Nutrition Mgmt, Infection Prevention, Medication Management & Education, Management of Risks & Complications, Nutrition Management, Pain Manag ement, Patient/Family Support, Safety Management, Wound Management Intensity of Therapy to be met Patient to be seen: Min.3h per day/5 of 7d PT IPOC Problem List: Activity Tolerance, Functional Strength, Gait, Transfer, Bed Mobility Treatment Plan: Continue Plan of Care Bed Mobility, Education, Functional Activity Michael, Functional Strength, Group Therapy, Gait, Safety, Therapeutic Exercise, Transfers Treatment Duration: May 14, 2023 Frequency: At least 5 of 7 days/Wk (IRF) Estimated Hrs Per Day: 1.5 hours per day OT IPOC Problems: Decreased Activ Tolerance, Impaired Bed Mobility, Impaired Funct Balance, Impaired Self-Care Skills OT Treatment, Training and Edu: Yes Plan of Care: ADL Retraining, Functional Mobility, Group Exercise/Act as Ind, UE Funct Exercise/Act Treatment Duration: May 16, 2023 Frequency: At least 5 of 7 days/Wk (IRF) Estimated Hrs Per Day: 1.[address] IPOC Speech Therapy Treatment Plan: Discontinue ST Treatment Duration: May 01, 2023 Frequency: Modified Program (IRF) Estimated Hrs Per Day: Other Computer Lab Assistant/Case Mgmt Computer Lab Assistant/Case Managemen: Discharge Planning Dietitian/Nursing Home Director Dietitian/Nursing Home Director to monitor nutritional status and make changes and/or recommendations as needed and work with speech pathology on dietary upgrades as the occur. Physician IPOC Medical Issues being managed closely and that require the 24 hour availability of a physician: Recent joint replacement with slow recovery due to RA pain and off MTX for 2 more weeks will require close monitoring and slow recovery in order to safely recover and return home Medical Issues: Bowel/Bladder Function, DVT Prophylaxis, Falls Precautions, F luid/Electrolyte/Nutrition Balance, Infection Protection, Pain Management, Wound Care Brief Synthesis of Preadmission Screen, Post-Admission Evaluation, and Therapy Evaluations: PT OT will focus on regaining function with the use of AD in order to return home with spouse and prevent falls and set up for success Medical Prognosis: Good Anticipated Length of Stay: 7 days TEOFILO WINKLER DO May 01, 2023 06:19
--- NOTE | 2023-05-01 06:19 | PM&R Progress Note ---
Subjective HPI/CC On Admission Date Seen by Provider: May 01, 2023 Time Seen by Provider: 12:30 Subjective/Events-last exam 05/01/2023: Much improved pain today No falls PT OT participation is good No falls No nausea Review of Systems General: Fatigue, Malaise Musculoskeletal: leg pain Objective Exam Vital Signs Vital Signs Date Time Temp Pulse Resp B/P (MAP) Pulse Ox O2 Delivery O2 Flow Rate FiO2 05/01/23 19:50 36.0 72 18 139/67 (91) 97 Room Air Capillary Refill : General Appearance: No Apparent Distress, WD/WN, Obese HEENT: PERRL/EOMI, Normal ENT Inspection, Pharynx Normal Neck: Full Range of Motion, Normal Inspection, Non Tender, Supple, Carotid Bruit Respiratory: Chest Non Tender, Lungs Clear, Normal Breath Sounds, No Accessory Muscle Use, No Respiratory Distress Cardiovascular: Regular Rate, Rhythm, No Edema, No Gallop, No JVD, No Murmur, Normal Peripheral Pulses Gastrointestinal: Normal Bowel Sounds, No Organomegaly, No Pulsatile Mass, Non Tender, Soft Back: Normal Inspection, No CVA Tenderness, No Vertebral Tenderness Extremity: Normal Capillary Refill, Normal Inspection, Normal Range of Motion, Non Tender, No Calf Tenderness, No Pedal Edema Neurologic/Psychiatric: Alert, Oriented x3, feed mill manager II-XII Norm as Tested, Abnormal Gait, Depressed Affect, Motor Weakness (Right leg due to pain) Skin: Normal Color, Warm/Dry Lymphatic: No Adenopathy Results/Procedures Lab Laboratory Tests 05/01/23 05:29 Patient resulted labs reviewed. FIM Transfers Therapy Code Descriptions/Definitions Functional [place] Measure: 0=Not Assessed/NA 4=Minimal Assistance 1=Total Assistance 5=Supervision or Setup 2=Maximal Assistance 6=Modified [place] 3=Moderate Assistance 7=Complete IndependenceSCALE: Activities may be completed with or without assistive devices. 3-Iipifgvdoe-pyhgflv completes the activity by him/herself with no assistance from a helper. 5-Set-up or Clean-up Assistance-helper sets up or cleans up; patient completes activity. [place] assists only prior to or following the activity. 4-Supervision or Touching Assistance-helper provides verbal cues and/or touching/steadying and/or contact guard assistance as patient completes activity. Assistance may be provided throughout the activity or intermittently. 3-Partial/Moderate Assistance-helper does LESS THAN HALF the effort. [place] lifts, holds or supports trunk or limbs, but provides less than half the effort. 2-Substantial/Maximal Assistance-helper does MORE THAN HALF the effort. [place] lifts or holds trunk or limbs and provides more than half the effort. 4-Yjzkcrkla-vxuejv does ALL the effort. Patient does none of the effort to complete the activity. Or, the assistance of 2 or more helpers is required for the patient to complete the activity. If activity was not attempted, code reason: 7-Patient Refused. 9-Not Applicable-not attempted and the patient did not perform the activity before the current illness, exacerbation or injury. 10-Not Attempted due to Environmental Limitations-(lack of equipment, weather restraints, etc.). 88-Not Attempted due to Medical Conditions or Safety Concerns. Roll Left to Right (QC): 3 Sit to Lying (QC): 3 Sit to Stand (QC): 4 Chair/Npi-tr-Mlrvx Xfer(QC): 4 Car Transfer (QC): 3 Gait Training Does the Patient Walk?: Yes Distance: 50' Walk 10 feet (QC): 4 Walk 50 ft with 2 Turns(QC): 4 Walk 150 ft (QC): 88 Walking 10ft/uneven surface-QC: 4 Gait Persons Needed: 1 Gait Assistive Device: FWW Wheelchair Training Does the Pt Use a Wheelchair?: No Wheel 50 ft with 2 turns (QC): 9 Wheel 150 ft (QC): 9 Type of Wheelchair: N/A Stair Training #of Steps: 1 1 Step (curb) (QC): 88 4 Steps (QC): 88 12 Steps (QC): 88 Balance Picking up an Object (QC): 4 ADL-Treatment Eating (QC): 5 (Pt verbalized requiring assistance to open packages.) Oral Hygiene (QC): 5 (seated) Bathing Location: L Arm, R Arm, L Upper Leg, R Upper Leg, L Lower Leg (including foot), Chest, Abdomen, Perineal Area Shower/Bathe Self (QC): 3 (Assistance to wash R foot, pt able to wash L foot. Assist to wash buttocks due to pain when standing and unable to release grab bars in shower. ) Upper Body Dressing (QC): 5 (Pt able to don/doff shirt sitting in w/c with set up.) Lower Body Dressing (QC): 3 (Pt able to thread L foot into underwear, assistance to thread R foot. Steadying assist in standing with FWW while pt hikes underwear over hips.) On/Off Footwear (QC): 3 (Pt able to doff socks using toes to pull off R sock, completed figure-four technique to don/doff L sock. Assistance to don R sock.) Toileting Hygiene (QC): 3 (Will need assistance to clean buttocks after BM. SBA if only urinating w/no BM.) Toilet Transfer (QC): 4 (Steadying assist with fww and utilizing grab bars for support. ) Assessment/Plan Assessment and Plan Assess & Plan/Chief Complaint Assessment: Right knee replacement due to OA/RA of right knee HTN Hyperlipidemia GERD hypothyroidism h/o hiatal hernia Depression Diverticulosis Hemorrhoids Plan: Pain control Aggressive therapy Home meds PT and OT 05/01/2023: Monitor closely Pain control (1) Primary osteoarthritis of right knee TEOFILO WINKLER DO May 01, 2023 06:19
[2023-05-01 06:22] LABS: BASOPHILS # (AUTO) 0.1 10^3/uL (0.0-0.1); BASOPHILS % (AUTO) 1 % (0-10); EOSINOPHILS # (AUTO) 0.2 10^3/uL (0.0-0.3); EOSINOPHILS % (AUTO) 2 % (0-10); HEMATOCRIT 38 % (35-52); HEMOGLOBIN 12.6 g/dL (11.5-16.0); LYMPHOCYTES # (AUTO) 2.1 10^3/uL (1.0-4.0); LYMPHOCYTES % (AUTO) 19 % (12-44); MEAN CORPUSCULAR HEMOGLOBIN 30 pg (25-34); MEAN CORPUSCULAR HGB CONC 33 g/dL (32-36); MEAN CORPUSCULAR VOLUME 90 fL (80-99); MEAN PLATELET VOLUME 10.7 fL (9.0-12.2); MONOCYTES # (AUTO) 0.9 10^3/uL (0.0-1.0); MONOCYTES % (AUTO) 8 % (0-12); NEUTROPHILS # (AUTO) 8.2 10^3/uL (1.8-7.8); NEUTROPHILS % (AUTO) 71 % (42-75); PLATELET COUNT 360 10^3/uL (130-400); WHITE BLOOD COUNT 11.6 10^3/uL (4.3-11.0)
[2023-05-01 06:32] LABS: ALBUMIN 3.6 GM/DL (3.2-4.5); BILIRUBIN,TOTAL 0.7 MG/DL (0.1-1.0); CALCIUM 9.6 MG/DL (8.5-10.1); CREATININE SERUM 0.82 MG/DL (0.60-1.30); POTASSIUM 3.2 MMOL/L (3.6-5.0); TOTAL PROTEIN 6.6 GM/DL (6.4-8.2)
[2023-05-01] MEDS: oxyCODONE IMMEDIATE RELEASE 5 MG TABLET PO PRN ×2 (06:47→18:57)
[2023-05-01] MEDS: THERAPEUTIC MULTIVITAMIN W/MINERALS TABLET PO SCH (06:47)
[2023-05-01 08:02] VITALS: BP 108/57
[2023-05-01] MEDS: DOCUSATE SODIUM 100 MG CAPSULE PO SCH ×2 (08:08→20:16)
[2023-05-01] MEDS: LOSARTAN 100 MG TABLET PO SCH (08:08)
[2023-05-01] MEDS: CELECOXIB 100 MG CAPSULE PO SCH ×2 (08:08→20:16)
[2023-05-01] MEDS: FOLIC ACID 1 MG TAB PO SCH (08:09)
[2023-05-01] MEDS: APIXABAN 2.5 MG TABLET PO SCH ×2 (08:09→20:15)
[2023-05-01] MEDS: SENNA W/DOCUSATE TABLET PO SCH ×2 (08:09→20:16)
[2023-05-01] MEDS: VITAMIN D3 25 MCG (1,000 UNITS) TABLET PO SCH (08:09)
[2023-05-01] MEDS ORDERED: ASPIRIN enteric coated 81MG TABLET PO SCH (09:00)
[2023-05-01 09:15] VITALS: BP 103/53
[2023-05-01] MEDS ORDERED: POTASSIUM CHLORIDE 20 MEQ TABLET PO ONE (10:00)
--- NOTE | 2023-05-01 10:29 | Occupational Ther Daily Note ---
OT Current Status-Daily Note Subjective Pt agreeable to OT Tx. She did not verbalize a pain rating, but states overall she feels better than yesterday. She indicates she had a hard time standing for extended periods of time prior to surgery and knows this is an area she needs to work on in order to regain independence at home. She has a hard time standing long enough to wash dishes and complete IADLs. Mental Status/Objective Patient Orientation: Normal For Age ADL-Treatment Therapy Code Descriptions/Definitions Functional [place] Measure: 0=Not Assessed/NA 4=Minimal Assistance 1=Total Assistance 5=Supervision or Setup 2=Maximal Assistance 6=Modified [place] 3=Moderate Assistance 7=Complete IndependenceSCALE: Activities may be completed with or without assistive devices. 7-Llwejxiytw-gagiebq completes the activity by him/herself with no assistance from a helper. 5-Set-up or Clean-up Assistance-helper sets up or cleans up; patient completes activity. [place] assists only prior to or following the activity. 4-Supervision or Touching Assistance-helper provides verbal cues and/or touching/steadying and/or contact guard assistance as patient completes activity. Assistance may be provided throughout the activity or intermittently. 3-Partial/Moderate Assistance-helper does LESS THAN HALF the effort. [place] lifts, holds or supports trunk or limbs, but provides less than half the effort. 2-Substantial/Maximal Assistance-helper does MORE THAN HALF the effort. [place] lifts or holds trunk or limbs and provides more than half the effort. 3-Ftocaucwu-qewzlh does ALL the effort. Patient does none of the effort to complete the activity. Or, the assistance of 2 or more helpers is required for the patient to complete the activity. If activity was not attempted, code reason: 7-Patient Refused. 9-Not Applicable-not attempted and the patient did not perform the activity before the current illness, exacerbation or injury. 10-Not Attempted due to Environmental Limitations-(lack of equipment, weather restraints, etc.). 88-Not Attempted due to Medical Conditions or Safety Concerns. Oral Hygiene (QC): 6 Upper Body Dressing (QC): 5 Lower Body Dressing (QC): 4 (CGA in stand during pant hike. Pt able to thread BLEs without AE seated.) Other Treatment Pt in recliner, agreeable to OT Tx. Pt changed shirt, and donned pants. Pt able to thread BLEs into pants seated without AE. Sit to stand from recliner, [facility] with several attempts made in order to achieve a stand. Pt performed pant hike with CGA, then transferred to /[facility] using FWW. Pt sat at sink to complete grooming tasks, IND. Pt propelled w/c to table in [facility] common area. Pt stood from /[facility] with several attempts. Pt completed UE reaching task at tall table, reaching in various planes to manipulate and move small objects. Pt able to stand ~25 mins prior to requesting seated rest break. This task was performed in order to increase dynamic standing tolerance with functional tasks/ADLS. OT modified pt's chair to increase seat height by a couple of inches in order to increase pt's independence with sit to stand transfers. Pt completed UE reaching task seated at table ~30 mins. Post tx, pt seated in w/c at table in [facility] Common area, all needs met. Pt instructed not to transfer out of w/ without staff present, she verbalized understanding. Education OT Patient Education: Correct positioning, Energy conservation, Modified ADL techniques, Progress toward Goal/Update tx plan, Purpose of tx/functional activities, Rehab process Teaching Recipient: Patient Teaching Methods: Discussion Response to Teaching: Verbalize Understanding OT Assisted Goals Assisted Goals Time Frame: May 16, 2023 Acute change in mental status: 0 Inattention: 0 Disorganized thinkin Altered level of consciousness: 0 Eating (QC): 6 Oral Hygiene (QC): 6 Toileting Hygiene (QC): 6 Shower/Bathe Self (QC): 6 Upper Body Dressing (QC): 6 (IND with shirt only. No bra) Lower Body Dressing (QC): 6 On/Off Footwear (QC): 6 Additional Goals: 1-Demonstrate ADL Tasks, 2-Verbalize Understanding, 3- ImproveStrength/Michael 1=Demonstrate adherence to instructed precautions during ADL tasks. 2=Patient will verbalize/demonstrate understanding of assistive devices/modifications for ADL. 3=Patient will improve strength/tolerance for activity to enable patient to perform ADL's. OT Education/Plan Problem List/Assessment Assessment: Decreased Activ Tolerance, Decreased UE Strength, Impaired Funct Balance, Impaired I ADL's, Impaired Self-Care Skills Discharge Recommendations Plan/Recommendations: Continue POC Treatment Plan/Plan of Care Patient would benefit from OT for education, treatment and training to promote independence in ADL's, mobility, safety and/or upper extremity function for ADL's. Plan of Care: ADL Retraining, Functional Mobility, Group Exercise/Act as Ind, UE Funct Exercise/Act Treatment Duration: May 16, 2023 Frequency: At least 5 of 7 days/Wk (IRF) Estimated Hrs Per Day: 1.5 hours per day Agreement: Yes Rehab Potential: Good Time Start Time: 08:45 Stop Time: 10:15 DATE: May 01, 2023 Total Time Billed (hr/min): 90 Billed Treatment Time 1, ADL 2 (30'), FA 4 (60') MILLY HYDE OT May 01, 2023 10:29
--- NOTE | 2023-05-01 13:31 | Physical Therapy Daily Note ---
PT Daily Note-Current Subjective Pt reports she is doing better and is agreeable to PT. Pt reported R knee pain at 5/10. Pain Numeric Pain Scale: 5-Moderate Pain Location: Right Location Body Site: Knee Section J - Health Conditions 1. Rarely or not at all 2. Occasionally 3. Frequently 4. Almost constantly 8. Unable to answer Pain Effect on Sleep: 2 Pain Interference with Therapy: 3 Pain Interference w/Day-to-Day: 3 Transfers SCALE: Activities may be completed with or without assistive devices. 5-Yxydxtdxyl-awprmxl completes the activity by him/herself with no assistance from a helper. 5-Set-up or Clean-up Assistance-helper sets up or cleans up; patient completes activity. [place] assists only prior to or following the activity. 4-Supervision or Touching Assistance-helper provides verbal cues and/or touching/steadying and/or contact guard assistance as patient completes activity. Assistance may be provided throughout the activity or intermittently. 3-Partial/Moderate Assistance-helper does LESS THAN HALF the effort. [place] lifts, holds or supports trunk or limbs, but provides less than half the effort. 2-Substantial/Maximal Assistance-helper does MORE THAN HALF the effort. [place] lifts or holds trunk or limbs and provides more than half the effort. 0-Jqtkpnnku-pfvxvx does ALL the effort. Patient does none of the effort to complete the activity. Or, the assistance of 2 or more helpers is required for the patient to complete the activity. If activity was not attempted, code reason: 7-Patient Refused. 9-Not Applicable-not attempted and the patient did not perform the activity before the current illness, exacerbation or injury. 10-Not Attempted due to Environmental Limitations-(lack of equipment, weather restraints, etc.). 88-Not Attempted due to Medical Conditions or Safety Concerns. Sit to Stand (QC): 4 Weight Bearing Right Lower Extremity: Right Weight Bearing/Tolerated Left Lower Extremity: Left Full Weight Bearing Gait Training Does the Patient Walk?: Yes Walk 10 feet (QC): 4 Walk 50 ft with 2 Turns(QC): 4 Walk 150 ft (QC): 4 Gait Persons Needed: 1 Gait Assistive Device: FWW Treatments Pt completed functional transfers with SBA. Pt ambulated 100ft, 150ft, and 160ft with the FWW and CGA/SBA. Pt edu on HEP/R knee stretches, with handouts provided. Pt completed seated B LE Ther Ex x 15 reps each with the red Tband. Pt completed seated R knee flex/ext stretch 3 x 1 min each. Pt required extended time to complete tasks, as well as extended rest breaks throughout treatment session. After treatment session, pt sitting in the recliner with call light in reach and all needs met. Assessment Current Status: Good Progress Pt tolerated PT well with good effort PT Manager Party Goals Manager Party Goals PT [facility] Goals Time Frame: May 14, 2023 Roll Left & Right (QC): 6 (Pt will be Mod I with functional mobility to safely return home with spouse. ) Sit to Lying (QC): 6 (Pt will be Mod I with functional mobility to safely return home with spouse. ) Lying-Sitting on Side/Bed(QC): 6 (Pt will be Mod I with functional mobility to safely return home with spouse. ) Sit to Stand (QC): 6 (Pt will be Mod I with functional mobility to safely return home with spouse. ) Chair/Zbo-el-Vegtd Xfer(QC): 6 (Pt will be Mod I with functional mobility to safely return home with spouse. ) Toilet Transfer (QC): 6 (Pt will be Mod I with functional mobility to safely return home with spouse. ) Car Transfer (QC): 6 (Pt will be Mod I with functional mobility to safely return home with spouse. ) Does the Patient Walk: Yes Walk 10 feet (QC): 6 (Pt will be Mod I with functional mobility to safely return home with spouse. ) Walk 50ft with 2 Turns (QC): 6 (Pt will be Mod I with functional mobility to safely return home with spouse. ) Walk 150 ft (QC): 6 (Pt will be Mod I with functional mobility to safely return home with spouse. ) Walking 10ft on Uneven Surface: 6 (Pt will be Mod I with functional mobility to safely return home with spouse. ) 1 Step (curb) (QC): 6 (Pt will be Mod I with functional mobility to safely return home with spouse. ) 4 Steps (QC): 6 (Pt will be Mod I with functional mobility to safely return home with spouse. ) 12 Steps (QC): 9 Picking up an Object (QC): 6 (Mod I with speed reading teacher ) Does the Pt use WC or Scooter?: No Wheel 50 feet with 2 turns (QC: 9 Type: N/A Wheel 150 feet: 9 Type: N/A PT Plan Problem List Problem List: Activity Tolerance, Functional Strength, Safety, Balance, Gait, Transfer, Bed Mobility, ROM Treatment/Plan Treatment Plan: Continue Plan of Care Treatment Plan: Bed Mobility, Education, Functional Activity Michael, Functional Strength, Group Therapy, Gait, Safety, Therapeutic Exercise, Transfers Treatment Duration: May 14, 2023 Frequency: At least 5 of 7 days/Wk (IRF) Estimated Hrs Per Day: 1.5 hours per day Patient and/or Family Agrees t: Yes Safety Risks/Education Patient Education: Gait Training, Transfer Techniques, Issued Written HEP, Correct Positioning, Safety Issues Teaching Recipient: Patient Teaching Methods: Demonstration, Discussion Response to Teaching: Verbalize Understanding, Return Demonstration, Reinforcement Needed Discharge Recommendations Therapy Discharge Recommendati: Home & Family, Post Acute PT Equpiment Recommendations-D/C: Shower Chair (Transfer bench ) Discharge Status/Home Program Cont per POC Barriers to Progress Weakness, R knee pain/ROM Target Placement Home with spouse and outpatient PT Time Time In: 1030 Time Out: 1200 DATE: May 01, 2023 Total Billed Treatment Time: 90 Total Billed Treatment 90 min 1 visit FA x 1 GT x 2 EX x 3 SAHIL VERMA PT May 01, 2023 13:31
[2023-05-01 19:50] VITALS: BP 139/67
[2023-05-01] MEDS: SERTRALINE 50 MG TABLET PO SCH (20:16)
[2023-05-02] MEDS: oxyCODONE IMMEDIATE RELEASE 5 MG TABLET PO PRN ×3 (02:58→19:55)
[2023-05-02] MEDS: LEVOTHYROXINE 88 MCG TABLET PO SCH (05:21)
--- NOTE | 2023-05-02 05:29 | PM&R Progress Note ---
Subjective HPI/CC On Admission Date Seen by Provider: May 02, 2023 Time Seen by Provider: 12:00 Subjective/Events-last exam 05/02/2023: Patient doing a lot better Pain is controlled No major concerns Bowel regimen maintained 05/01/2023: Much improved pain today No falls PT OT participation is good No falls No nausea Review of Systems General: Fatigue, Malaise Objective Exam Vital Signs Vital Signs Date Time Temp Pulse Resp B/P (MAP) Pulse Ox O2 Delivery O2 Flow Rate FiO2 05/02/23 20:14 36.0 72 20 143/65 (91) 96 Room Air Capillary Refill : General Appearance: No Apparent Distress, WD/WN, Obese HEENT: PERRL/EOMI, Normal ENT Inspection, Pharynx Normal Neck: Full Range of Motion, Normal Inspection, Non Tender, Supple, Carotid Bruit Respiratory: Chest Non Tender, Lungs Clear, Normal Breath Sounds, No Accessory Muscle Use, No Respiratory Distress Cardiovascular: Regular Rate, Rhythm, No Edema, No Gallop, No JVD, No Murmur, Normal Peripheral Pulses Gastrointestinal: Normal Bowel Sounds, No Organomegaly, No Pulsatile Mass, Non Tender, Soft Back: Normal Inspection, No CVA Tenderness, No Vertebral Tenderness Extremity: Normal Capillary Refill, Normal Inspection, Normal Range of Motion, Non Tender, No Calf Tenderness, No Pedal Edema Neurologic/Psychiatric: Alert, Oriented x3, sack sorter II-XII Norm as Tested, Abnormal Gait, Depressed Affect, Motor Weakness (Right leg due to pain) Skin: Normal Color, Warm/Dry Lymphatic: No Adenopathy Results/Procedures Lab Patient resulted labs reviewed. FIM Transfers Therapy Code Descriptions/Definitions Functional [place] Measure: 0=Not Assessed/NA 4=Minimal Assistance 1=Total Assistance 5=Supervision or Setup 2=Maximal Assistance 6=Modified [place] 3=Moderate Assistance 7=Complete IndependenceSCALE: Activities may be completed with or without assistive devices. 6-Dgntiwxrkv-sjkaazx completes the activity by him/herself with no assistance from a helper. 5-Set-up or Clean-up Assistance-helper sets up or cleans up; patient completes activity. [place] assists only prior to or following the activity. 4-Supervision or Touching Assistance-helper provides verbal cues and/or touching/steadying and/or contact guard assistance as patient completes activity. Assistance may be provided throughout the activity or intermittently. 3-Partial/Moderate Assistance-helper does LESS THAN HALF the effort. [place] lifts, holds or supports trunk or limbs, but provides less than half the effort. 2-Substantial/Maximal Assistance-helper does MORE THAN HALF the effort. [place] lifts or holds trunk or limbs and provides more than half the effort. 9-Ztgjivisp-oavnls does ALL the effort. Patient does none of the effort to complete the activity. Or, the assistance of 2 or more helpers is required for the patient to complete the activity. If activity was not attempted, code reason: 7-Patient Refused. 9-Not Applicable-not attempted and the patient did not perform the activity before the current illness, exacerbation or injury. 10-Not Attempted due to Environmental Limitations-(lack of equipment, weather restraints, etc.). 88-Not Attempted due to Medical Conditions or Safety Concerns. Roll Left to Right (QC): 3 Sit to Lying (QC): 3 Sit to Stand (QC): 4 Chair/Wuy-ro-Aofms Xfer(QC): 4 Car Transfer (QC): 3 Gait Training Does the Patient Walk?: Yes Distance: 50' Walk 10 feet (QC): 4 Walk 50 ft with 2 Turns(QC): 4 Walk 150 ft (QC): 4 Walking 10ft/uneven surface-QC: 4 Gait Persons Needed: 1 Gait Assistive Device: FWW Wheelchair Training Does the Pt Use a Wheelchair?: No Wheel 50 ft with 2 turns (QC): 9 Wheel 150 ft (QC): 9 Type of Wheelchair: N/A Stair Training #of Steps: 1 1 Step (curb) (QC): 88 4 Steps (QC): 88 12 Steps (QC): 88 Balance Picking up an Object (QC): 4 ADL-Treatment Eating (QC): 5 (Pt verbalized requiring assistance to open packages.) Oral Hygiene (QC): 6 Bathing Location: L Arm, R Arm, L Upper Leg, R Upper Leg, L Lower Leg (includ ing foot), Chest, Abdomen, Perineal Area Shower/Bathe Self (QC): 3 (Assistance to wash R foot, pt able to wash L foot. Assist to wash buttocks due to pain when standing and unable to release grab bars in shower. ) Upper Body Dressing (QC): 5 Lower Body Dressing (QC): 4 (CGA in stand during pant hike. Pt able to thread BLEs without AE seated.) On/Off Footwear (QC): 3 (Pt able to doff socks using toes to pull off R sock, c ompleted figure-four technique to don/doff L sock. Assistance to don R sock.) Toileting Hygiene (QC): 3 (Will need assistance to clean buttocks after BM. SBA if only urinating w/no BM.) Toilet Transfer (QC): 4 (Steadying assist with fww and utilizing grab bars for support. 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
[2023-05-02] MEDS: THERAPEUTIC MULTIVITAMIN W/MINERALS TABLET PO SCH (06:23)
[2023-05-02] MEDS: POTASSIUM CHLORIDE 10 MEQ TABLET PO SCH (06:23)
[2023-05-02 08:10] VITALS: BP 113/56
--- NOTE | 2023-05-02 08:31 | Occupational Ther Daily Note ---
OT Current Status-Daily Note Subjective Pt alert. supine in bed. Pt agrees to therapy. Pt did not report pain but displayed facial grimaces while ambulating with FWW. Mental Status/Objective Patient Orientation: Person, Place, Time, Situation ADL-Treatment Therapy Code Descriptions/Definitions Functional [place] Measure: 0=Not Assessed/NA 4=Minimal Assistance 1=Total Assistance 5=Supervision or Setup 2=Maximal Assistance 6=Modified [place] 3=Moderate Assistance 7=Complete IndependenceSCALE: Activities may be completed with or without assistive devices. 1-Eucrzgdzys-jkmrtne completes the activity by him/herself with no assistance from a helper. 5-Set-up or Clean-up Assistance-helper sets up or cleans up; patient completes activity. [place] assists only prior to or following the activity. 4-Supervision or Touching Assistance-helper provides verbal cues and/or touching/steadying and/or contact guard assistance as patient completes activity. Assistance may be provided throughout the activity or intermittently. 3-Partial/Moderate Assistance-helper does LESS THAN HALF the effort. [place] lifts, holds or supports trunk or limbs, but provides less than half the effort. 2-Substantial/Maximal Assistance-helper does MORE THAN HALF the effort. [place] lifts or holds trunk or limbs and provides more than half the effort. 3-Ljzrvmcrh-lafsvd does ALL the effort. Patient does none of the effort to complete the activity. Or, the assistance of 2 or more helpers is required for the patient to complete the activity. If activity was not attempted, code reason: 7-Patient Refused. 9-Not Applicable-not attempted and the patient did not perform the activity before the current illness, exacerbation or injury. 10-Not Attempted due to Environmental Limitations-(lack of equipment, weather restraints, etc.). 88-Not Attempted due to Medical Conditions or Safety Concerns. Eating (QC): 6 (Pt sitting in recliner. Can open packages and use utensils by self.) Oral Hygiene (QC): 4 (CGA while pt standing at sink for safety. Pt able to complete oral care by self. ) Bathing Location: L Arm, R Arm, L Upper Leg, R Upper Leg, L Lower Leg (including foot), Chest, Abdomen, Buttocks, Perineal Area Shower/Bathe Self (QC): 3 (CGA while pt stands for safety in shower. Pt able to clean buttocks. Pt able to wash L foot, needs assistance to wash R foot. Will introduce long-handled sponge in shower session.) Upper Body Dressing (QC): 5 (set up clothes on walker. Pt able to don/doff shirt. ) Lower Body Dressing (QC): 4 (CGA in standing while pt pull down/hike pants over hips. Pt able to thread pants around feet while donning/doffing.) On/Off Footwear: 3 (Pt able to doff both socks by using toes to hook sock. Assistance given to don R sock, pt able to don L sock. Pt may benefit from a sock aid while mobility in the knee is limited. ) Toileting Hygiene (QC): 4 (CGA while pt stands to complete hygiene. Pt using grab bars for steadying support.) Toilet Transfer (QC): 4 (CGA for safety.) Pt required increased time to complete ADLs due to pain. Other Treatment Supine -> EOB by self using grab rails. Sit -> stand, CGA. Pt ambulated to and from the bathroom with FWW, CGA for safety. Education OT Patient Education: Modified ADL techniques Teaching Recipient: Patient Teaching Methods: Discussion Response to Teaching: Verbalize Understanding, Return Demonstration OT Display Card Writer Goals [facility] Goals Time Frame: May 16, 2023 Acute change in mental status: 0 Inattention: 0 Disorganized thinkin Altered level of consciousness: 0 Eating (QC): 6 Oral Hygiene (QC): 6 Toileting Hygiene (QC): 6 Shower/Bathe Self (QC): 6 Upper Body Dressing (QC): 6 (IND with shirt only. No bra) Lower Body Dressing (QC): 6 On/Off Footwear (QC): 6 Additional Goals: 1-Demonstrate ADL Tasks, 2-Verbalize Understanding, 3- ImproveStrength/Michael 1=Demonstrate adherence to instructed precautions during ADL tasks. 2=Patient will verbalize/demonstrate understanding of assistive devices/modifications for ADL. 3=Patient will improve strength/tolerance for activity to enable patient to perform ADL's. OT Education/Plan Problem List/Assessment Assessment: Decreased Activ Tolerance, Decreased UE Strength, Impaired Self- Care Skills Discharge Recommendations Plan/Recommendations: Continue POC Treatment Plan/Plan of Care Patient would benefit from OT for education, treatment and training to promote independence in ADL's, mobility, safety and/or upper extremity function for ADL's. Plan of Care: ADL Retraining, Functional Mobility, Group Exercise/Act as Ind, UE Funct Exercise/Act Treatment Duration: May 16, 2023 Frequency: At least 5 of 7 days/Wk (IRF) Estimated Hrs Per Day: 1.5 hours per day Agreement: Yes Rehab Potential: Good Time Start Time: 07:00 Stop Time: 08:30 DATE: May 02, 2023 Total Time Billed (hr/min): 90 Billed Treatment Time 1 visit- ADL 6 (90 min) GEORGE DESOUZA May 02, 2023 08:31
[2023-05-02] MEDS: SENNA W/DOCUSATE TABLET PO SCH ×2 (09:11→21:36)
[2023-05-02] MEDS: VITAMIN D3 25 MCG (1,000 UNITS) TABLET PO SCH (09:11)
[2023-05-02] MEDS: DOCUSATE SODIUM 100 MG CAPSULE PO SCH ×2 (09:11→21:35)
[2023-05-02] MEDS: LOSARTAN 100 MG TABLET PO SCH (09:11)
[2023-05-02] MEDS: CELECOXIB 100 MG CAPSULE PO SCH ×2 (09:11→21:37)
[2023-05-02] MEDS: APIXABAN 2.5 MG TABLET PO SCH ×2 (09:11→21:36)
[2023-05-02] MEDS: FOLIC ACID 1 MG TAB PO SCH (09:12)
[2023-05-02] MEDS ORDERED: HYDROCORTISONE 25 MG SUPPOSITORY PR PRN (12:00)
[2023-05-02] MEDS ORDERED: Phenylephrine/Mineral oil/Petrolatum OINTMENT 57 GM PR PRN (12:00)
--- NOTE | 2023-05-02 12:05 | Physical Therapy Daily Note ---
PT Daily Note-Current Subjective Pt found in bathroom /c RN present upon entry. Agreed to PT. Reports R knee pain but does not describe or rate. PT/OT co-treatment ([id number]) for skilled intervention of two clinicians. PT focus on LE strength, gait, and transfers. OT focus on ADLs and UE strength. Pain Section J - Health Conditions 1. Rarely or not at all 2. Occasionally 3. Frequently 4. Almost constantly 8. Unable to answer Pain Effect on Sleep: 2 Pain Interference with Therapy: 3 Pain Interference w/Day-to-Day: 3 Mental Status Patient Orientation: Person, Place Transfers SCALE: Activities may be completed with or without assistive devices. 8-Sbwgxptakv-jwkicbc completes the activity by him/herself with no assistance from a helper. 5-Set-up or Clean-up Assistance-helper sets up or cleans up; patient completes activity. [place] assists only prior to or following the activity. 4-Supervision or Touching Assistance-helper provides verbal cues and/or touching/steadying and/or contact guard assistance as patient completes activity. Assistance may be provided throughout the activity or intermittently. 3-Partial/Moderate Assistance-helper does LESS THAN HALF the effort. [place] lifts, holds or supports trunk or limbs, but provides less than half the effort. 2-Substantial/Maximal Assistance-helper does MORE THAN HALF the effort. [place] lifts or holds trunk or limbs and provides more than half the effort. 7-Yxrgkaeqk-qhtxqi does ALL the effort. Patient does none of the effort to complete the activity. Or, the assistance of 2 or more helpers is required for the patient to complete the activity. If activity was not attempted, code reason: 7-Patient Refused. 9-Not Applicable-not attempted and the patient did not perform the activity before the current illness, exacerbation or injury. 10-Not Attempted due to Environmental Limitations-(lack of equipment, weather restraints, etc.). 88-Not Attempted due to Medical Conditions or Safety Concerns. Sit to Stand (QC): 4 Sit to stands completed 10x from chair Weight Bearing Right Lower Extremity: Right Weight Bearing/Tolerated Left Lower Extremity: Left Full Weight Bearing Gait Training Does the Patient Walk?: Yes Distance: 220, 50 Walk 10 feet (QC): 4 Walk 50 ft with 2 Turns(QC): 4 Walk 150 ft (QC): 4 Gait Persons Needed: 1 Gait Assistive Device: FWW Treatments Standing Therapeutic Activities (B) x 10: - Side-stepping x 3 trips at // - Marching x 1 trip at // - Heel/toe raises Stretching (standing): - Knee flx/ext stretch x 1' Airex - Hamstring stretch x 1' on Airex UE strengthening: -See OT note Assessment Current Status: Good Progress Pt ambulates /c use of FWW up to 220 feet before requiring a seated rest break. Displays even step length during gait cycle. Occasionally displays poor heel/toe pattern on R side but corrects without verbal cues from helper. Reports occasional knee "buckle" that causes increased pain while ambulating. Signs of increased pain reported /c R knee stretching. Pt required rest breaks throughout visit to complete therapeutic exercises. See OT note for performance of UE exercise. Pt placed in recliner post-treatment /c call light in place and all needs met. Continue to progress pt per POC. PT Grave Cleaner Goals [facility] Goals PT [facility] Goals Time Frame: May 14, 2023 Roll Left & Right (QC): 6 (Pt will be Mod I with functional mobility to safely return home with spouse. ) Sit to Lying (QC): 6 (Pt will be Mod I with functional mobility to safely return home with spouse. ) Lying-Sitting on Side/Bed(QC): 6 (Pt will be Mod I with functional mobility to safely return home with spouse. ) Sit to Stand (QC): 6 (Pt will be Mod I with functional mobility to safely return home with spouse. ) Chair/Lzp-jy-Hrgcs Xfer(QC): 6 (Pt will be Mod I with functional mobility to safely return home with spouse. ) Toilet Transfer (QC): 6 (Pt will be Mod I with functional mobility to safely return home with spouse. ) Car Transfer (QC): 6 (Pt will be Mod I with functional mobility to safely return home with spouse. ) Does the Patient Walk: Yes Walk 10 feet (QC): 6 (Pt will be Mod I with functional mobility to safely return home with spouse. ) Walk 50ft with 2 Turns (QC): 6 (Pt will be Mod I with functional mobility to safely return home with spouse. ) Walk 150 ft (QC): 6 (Pt will be Mod I with functional mobility to safely return home with spouse. ) Walking 10ft on Uneven Surface: 6 (Pt will be Mod I with functional mobility to safely return home with spouse. ) 1 Step (curb) (QC): 6 (Pt will be Mod I with functional mobility to safely return home with spouse. ) 4 Steps (QC): 6 (Pt will be Mod I with functional mobility to safely return home with spouse. ) 12 Steps (QC): 9 Picking up an Object (QC): 6 (Mod I with senior graphic designer ) Does the Pt use WC or Scooter?: No Wheel 50 feet with 2 turns (QC: 9 Type: N/A Wheel 150 feet: 9 Type: N/A PT Plan Treatment/Plan Treatment Plan: Continue Plan of Care Treatment Plan: Bed Mobility, Education, Functional Activity Michael, Functional Strength, Group Therapy, Gait, Safety, Therapeutic Exercise, Transfers Treatment Duration: May 14, 2023 Frequency: At least 5 of 7 days/Wk (IRF) Estimated Hrs Per Day: 1.5 hours per day Patient and/or Family Agrees t: Yes Time Time In: 1100 Time Out: 1200 DATE: May 02, 2023 Total Billed Treatment Time: 60 Total Billed Treatment 1 visit GT x 2 EX x 1 FA x 1 Individual treatment time: 9306-2573 Co-treatment time: 9296-8495 Total treatment time: 4195-0684 FERNANDA POSADA PTA May 02, 2023 12:05
--- NOTE | 2023-05-02 12:43 | Occupational Ther Daily Note ---
OT Current Status-Daily Note Subjective Pt alert, working with PT. Pt agrees to therapy. [place] with PT ([id number]), skills of 2 clinicians required to decrease fall risk, increase overall strength/stamina and work on higher level balance skills. PT focusing on balance, ambulation and B LE strengthening while OT focusing on functional balance and B UE strengthening. Mental Status/Objective Patient Orientation: Person, Place, Time, Situation ADL-Treatment Therapy Code Descriptions/Definitions Functional [place] Measure: 0=Not Assessed/NA 4=Minimal Assistance 1=Total Assistance 5=Supervision or Setup 2=Maximal Assistance 6=Modified [place] 3=Moderate Assistance 7=Complete IndependenceSCALE: Activities may be completed with or without assistive devices. 9-Ysjqwdkfut-buzsonr completes the activity by him/herself with no assistance from a helper. 5-Set-up or Clean-up Assistance-helper sets up or cleans up; patient completes activity. [place] assists only prior to or following the activity. 4-Supervision or Touching Assistance-helper provides verbal cues and/or touching/steadying and/or contact guard assistance as patient completes activity. Assistance may be provided throughout the activity or intermittently. 3-Partial/Moderate Assistance-helper does LESS THAN HALF the effort. [place] lifts, holds or supports trunk or limbs, but provides less than half the effort. 2-Substantial/Maximal Assistance-helper does MORE THAN HALF the effort. [place] lifts or holds trunk or limbs and provides more than half the effort. 2-Cjhgjcmqi-vtcukv does ALL the effort. Patient does none of the effort to complete the activity. Or, the assistance of 2 or more helpers is required for the patient to complete the activity. If activity was not attempted, code reason: 7-Patient Refused. 9-Not Applicable-not attempted and the patient did not perform the activity before the current illness, exacerbation or injury. 10-Not Attempted due to Environmental Limitations-(lack of equipment, weather restraints, etc.). 88-Not Attempted due to Medical Conditions or Safety Concerns. Other Treatment Skilled instruction for B UE exercise HEP for correct technique and modifications when necessary. Pt able to complete 5 exercises with medium resistance theraband 1 set 10 reps completed while PT completing B LE strengthening/standing exercises/mobility. After therapy, pt sitting in recliner with call light/phone in reach. All needs met in room. Education OT Patient Education: Home exercise program Teaching Recipient: Patient Teaching Methods: Demonstration, Handout, Discussion Response to Teaching: Verbalize Understanding, Return Demonstration, Reinforcement Needed OT Custodial Goals Custodial Goals Time Frame: May 16, 2023 Acute change in mental status: 0 Inattention: 0 Disorganized thinkin Altered level of consciousness: 0 Eating (QC): 6 Oral Hygiene (QC): 6 Toileting Hygiene (QC): 6 Shower/Bathe Self (QC): 6 Upper Body Dressing (QC): 6 (IND with shirt only. No bra) Lower Body Dressing (QC): 6 On/Off Footwear (QC): 6 Additional Goals: 1-Demonstrate ADL Tasks, 2-Verbalize Understanding, 3- ImproveStrength/Michael 1=Demonstrate adherence to instructed precautions during ADL tasks. 2=Patient will verbalize/demonstrate understanding of assistive devices/modifications for ADL. 3=Patient will improve strength/tolerance for activity to enable patient to perform ADL's. OT Education/Plan Problem List/Assessment Assessment: Decreased Activ Tolerance, Decreased UE Strength Discharge Recommendations Plan/Recommendations: Continue POC Treatment Plan/Plan of Care Patient would benefit from OT for education, treatment and training to promote independence in ADL's, mobility, safety and/or upper extremity function for ADL's. Plan of Care: ADL Retraining, Functional Mobility, Group Exercise/Act as Ind, UE Funct Exercise/Act Treatment Duration: May 16, 2023 Frequency: At least 5 of 7 days/Wk (IRF) Estimated Hrs Per Day: 1.5 hours per day Agreement: Yes Rehab Potential: Good Time Start Time: 11:30 Stop Time: 12:00 DATE: May 02, 2023 Total Time Billed (hr/min): 30 Billed Treatment Time 1 visit-EX 2 (30 min) GEORGE DESOUZA May 02, 2023 12:43
[2023-05-02 20:14] VITALS: BP 143/65
[2023-05-02] MEDS: ASPIRIN enteric coated 81MG TABLET PO SCH (21:36)
[2023-05-02] MEDS: SERTRALINE 50 MG TABLET PO SCH (21:36)
[2023-05-03] MEDS: oxyCODONE IMMEDIATE RELEASE 5 MG TABLET PO PRN ×3 (04:51→21:22)
[2023-05-03] MEDS: LEVOTHYROXINE 88 MCG TABLET PO SCH (05:36)
[2023-05-03] MEDS: POTASSIUM CHLORIDE 10 MEQ TABLET PO SCH (06:58)
[2023-05-03] MEDS: THERAPEUTIC MULTIVITAMIN W/MINERALS TABLET PO SCH (06:58)
[2023-05-03 07:37] VITALS: BP 116/56
[2023-05-03] MEDS: VITAMIN D3 25 MCG (1,000 UNITS) TABLET PO SCH (09:26)
[2023-05-03] MEDS: LOSARTAN 100 MG TABLET PO SCH (09:26)
[2023-05-03] MEDS: APIXABAN 2.5 MG TABLET PO SCH ×2 (09:26→20:19)
[2023-05-03] MEDS: FOLIC ACID 1 MG TAB PO SCH (09:26)
[2023-05-03] MEDS: SENNA W/DOCUSATE TABLET PO SCH ×2 (09:27→20:18)
[2023-05-03] MEDS: CELECOXIB 100 MG CAPSULE PO SCH ×2 (09:27→20:19)
[2023-05-03] MEDS: DOCUSATE SODIUM 100 MG CAPSULE PO SCH ×2 (09:28→20:19)
[2023-05-03] MEDS ORDERED: MONTELUKAST 10 MG TABLET PO ONE (10:00)
[2023-05-03] MEDS ORDERED: LORATADINE 10 MG TABLET PO ONE (10:00)
--- NOTE | 2023-05-03 10:00 | PM&R Progress Note ---
Subjective HPI/CC On Admission Date Seen by Provider: May 03, 2023 Time Seen by Provider: 10:00 Subjective/Events-last exam 05/03/2023: No major issues except hives She has hives at home periodically Singulair and Claritin started 05/02/2023: Patient doing a lot better Pain is controlled No major concerns Bowel regimen maintained 05/01/2023: Much improved pain today No falls PT OT participation is good No falls No nausea Review of Systems General: Fatigue, Malaise Musculoskeletal: leg pain Objective Exam Vital Signs Vital Signs Date Time Temp Pulse Resp B/P (MAP) Pulse Ox O2 Delivery O2 Flow Rate FiO2 05/03/23 08:00 Room Air 05/03/23 07:37 36.8 91 18 116/56 (22) 93 Capillary Refill : General Appearance: No Apparent Distress, WD/WN, Obese HEENT: PERRL/EOMI, Normal ENT Inspection, Pharynx Normal Neck: Full Range of Motion, Normal Inspection, Non Tender, Supple, Carotid Bruit Respiratory: Chest Non Tender, Lungs Clear, Normal Breath Sounds, No Accessory Muscle Use, No Respiratory Distress Cardiovascular: Regular Rate, Rhythm, No Edema, No Gallop, No JVD, No Murmur, Normal Peripheral Pulses Gastrointestinal: Normal Bowel Sounds, No Organomegaly, No Pulsatile Mass, Non Tender, Soft Back: Normal Inspection, No CVA Tenderness, No Vertebral Tenderness Extremity: Normal Capillary Refill, Normal Inspection, Normal Range of Motion, Non Tender, No Calf Tenderness, No Pedal Edema Neurologic/Psychiatric: Alert, Oriented x3, mud temperer II-XII Norm as Tested, Abnormal Gait, Depressed Affect, Motor Weakness (Right leg due to pain) Skin: Normal Color, Warm/Dry Lymphatic: No Adenopathy Results/Procedures Lab Patient resulted labs reviewed. FIM Transfers Therapy Code Descriptions/Definitions Functional [place] Measure: 0=Not Assessed/NA 4=Minimal Assistance 1=Total Assistance 5=Supervision or Setup 2=Maximal Assistance 6=Modified [place] 3=Moderate Assistance 7=Complete IndependenceSCALE: Activities may be completed with or without assistive devices. 2-Odgwjxzamv-dcohlfm completes the activity by him/herself with no assistance from a helper. 5-Set-up or Clean-up Assistance-helper sets up or cleans up; patient completes activity. [place] assists only prior to or following the activity. 4-Supervision or Touching Assistance-helper provides verbal cues and/or touching/steadying and/or contact guard assistance as patient completes activity. Assistance may be provided throughout the activity or intermittently. 3-Partial/Moderate Assistance-helper does LESS THAN HALF the effort. [place] lifts, holds or supports trunk or limbs, but provides less than half the effort. 2-Substantial/Maximal Assistance-helper does MORE THAN HALF the effort. [place] lifts or holds trunk or limbs and provides more than half the effort. 5-Hdgcnmybt-kqhtbz does ALL the effort. Patient does none of the effort to complete the activity. Or, the assistance of 2 or more helpers is required for the patient to complete the activity. If activity was not attempted, code reason: 7-Patient Refused. 9-Not Applicable-not attempted and the patient did not perform the activity befo re the current illness, exacerbation or injury. 10-Not Attempted due to Environmental Limitations-(lack of equipment, weather re straints, etc.). 88-Not Attempted due to Medical Conditions or Safety Concerns. Roll Left to Right (QC): 3 Sit to Lying (QC): 3 Sit to Stand (QC): 4 Chair/Dmv-nr-[place] Xfer(QC): 4 Car Transfer (QC): 3 Gait Training Does the Patient Walk?: Yes Distance: 220, 50 Walk 10 feet (QC): 4 Walk 50 ft with 2 Turns(QC): 4 Walk 150 ft (QC): 4 Walking 10ft/uneven surface-QC: 4 Gait Persons Needed: 1 Gait Assistive Device: FWW Wheelchair Training Does the Pt Use a Wheelchair?: No Wheel 50 ft with 2 turns (QC): 9 Wheel 150 ft (QC): 9 Type of Wheelchair: N/A Stair Training #of Steps: 1 1 Step (curb) (QC): 88 4 Steps (QC): 88 12 Steps (QC): 88 Balance Picking up an Object (QC): 4 ADL-Treatment Eating (QC): 6 (Pt sitting in recliner. Can open packages and use utensils by self.) Oral Hygiene (QC): 4 (CGA while pt standing at sink for safety. Pt able to complete oral care by self. ) Bathing Location: L Arm, R Arm, L Upper Leg, R Upper Leg, L Lower Leg (including foot), Chest, Abdomen, Buttocks, Perineal Area Shower/Bathe Self (QC): 3 (CGA while pt stands for safety in shower. Pt able to clean buttocks. Pt able to wash L foot, needs assistance to wash R foot. Will introduce long-handled sponge in shower session.) Upper Body Dressing (QC): 5 (set up clothes on walker. Pt able to don/doff shirt. ) Lower Body Dressing (QC): 4 (CGA in standing while pt pull down/hike pants over hips. Pt able to thread pants around feet while donning/doffing.) On/Off Footwear (QC): 3 (Pt able to doff both socks by using toes to hook sock. Assistance given to don R sock, pt able to don L sock. Pt may benefit from a sock aid while mobility in the knee is limited. ) Toileting Hygiene (QC): 4 (CGA while pt stands to complete hygiene. 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
[2023-05-03] MEDS: diphenhydrAMINE 25 MG TABLET PO PRN (14:29)
[2023-05-03 19:21] VITALS: BP 141/81
[2023-05-03] MEDS: SERTRALINE 50 MG TABLET PO SCH (20:19)
[2023-05-03] MEDS: ASPIRIN enteric coated 81MG TABLET PO SCH (20:19)
[2023-05-04] MEDS: LEVOTHYROXINE 88 MCG TABLET PO SCH (05:31)
[2023-05-04] MEDS: POTASSIUM CHLORIDE 10 MEQ TABLET PO SCH (06:29)
[2023-05-04] MEDS: THERAPEUTIC MULTIVITAMIN W/MINERALS TABLET PO SCH (06:29)
[2023-05-04] MEDS: oxyCODONE IMMEDIATE RELEASE 5 MG TABLET PO PRN ×2 (06:29→18:53)
[2023-05-04 07:52] VITALS: BP 122/77
[2023-05-04] MEDS: MONTELUKAST 10 MG TABLET PO SCH (09:28)
[2023-05-04] MEDS: VITAMIN D3 25 MCG (1,000 UNITS) TABLET PO SCH (09:28)
[2023-05-04] MEDS: LORATADINE 10 MG TABLET PO SCH (09:28)
[2023-05-04] MEDS: APIXABAN 2.5 MG TABLET PO SCH ×2 (09:28→20:23)
[2023-05-04] MEDS: LOSARTAN 100 MG TABLET PO SCH (09:28)
[2023-05-04] MEDS: FOLIC ACID 1 MG TAB PO SCH (09:28)
[2023-05-04] MEDS: CELECOXIB 100 MG CAPSULE PO SCH ×2 (09:28→20:23)
[2023-05-04] MEDS: SENNA W/DOCUSATE TABLET PO SCH ×2 (09:32→20:31)
[2023-05-04] MEDS: DOCUSATE SODIUM 100 MG CAPSULE PO SCH ×2 (09:32→20:31)
--- NOTE | 2023-05-04 09:40 | PM&R Progress Note ---
Subjective HPI/CC On Admission Date Seen by Provider: May 04, 2023 Time Seen by Provider: 16:00 Subjective/Events-last exam 05/04/2023: Patient doing a lot better Pain is more controlled No falls Reviewed meds and labs No more hives but her tongue is "thickened" 05/03/2023: No major issues except hives She has hives at home periodically Singulair and Claritin started 05/02/2023: Patient doing a lot better Pain is controlled No major concerns Bowel regimen maintained 05/01/2023: Much improved pain today No falls PT OT participation is good No falls No nausea Review of Systems General: Fatigue, Malaise Objective Exam Vital Signs Vital Signs Date Time Temp Pulse Resp B/P (MAP) Pulse Ox O2 Delivery O2 Flow Rate FiO2 05/04/23 20:10 Room Air 05/04/23 19:38 36.3 79 16 161/93 (115) 91 Capillary Refill : General Appearance: No Apparent Distress, WD/WN, Obese HEENT: PERRL/EOMI, Normal ENT Inspection, Pharynx Normal Neck: Full Range of Motion, Normal Inspection, Non Tender, Supple, Carotid Bruit Respiratory: Chest Non Tender, Lungs Clear, Normal Breath Sounds, No Accessory Muscle Use, No Respiratory Distress Cardiovascular: Regular Rate, Rhythm, No Edema, No Gallop, No JVD, No Murmur, Normal Peripheral Pulses Gastrointestinal: Normal Bowel Sounds, No Organomegaly, No Pulsatile Mass, Non Tender, Soft Back: Normal Inspection, No CVA Tenderness, No Vertebral Tenderness Extremity: Normal Capillary Refill, Normal Inspection, Normal Range of Motion, Non Tender, No Calf Tenderness, No Pedal Edema Neurologic/Psychiatric: Alert, Oriented x3, technical support intern II-XII Norm as Tested, Abnormal Gait, Depressed Affect, Motor Weakness (Right leg due to pain) Skin: Normal Color, Warm/Dry Lymphatic: No Adenopathy Results/Procedures Lab Patient resulted labs reviewed. FIM Transfers Therapy Code Descriptions/Definitions Functional [place] Measure: 0=Not Assessed/NA 4=Minimal Assistance 1=Total Assistance 5=Supervision or Setup 2=Maximal Assistance 6=Modified [place] 3=Moderate Assistance 7=Complete IndependenceSCALE: Activities may be completed with or without assistive devices. 3-Tgrgutqwlg-xswkwkd completes the activity by him/herself with no assistance from a helper. 5-Set-up or Clean-up Assistance-helper sets up or cleans up; patient completes activity. [place] assists only prior to or following the activity. 4-Supervision or Touching Assistance-helper provides verbal cues and/or touching/steadying and/or contact guard assistance as patient completes a ctivity. Assistance may be provided throughout the activity or intermittently. 3-Partial/Moderate Assistance-helper does LESS THAN HALF the effort. [place] lifts, holds or supports trunk or limbs, but provides less than half the effort. 2-Substantial/Maximal Assistance-helper does MORE THAN HALF the effort. [place] lifts or holds trunk or limbs and provides more than half the effort. 8-Skcrshepa-fdjwqj does ALL the effort. Patient does none of the effort to complete the activity. Or, the assistance of 2 or more helpers is required for the patient to complete the activity. If activity was not attempted, code reason: 7-Patient Refused. 9-Not Applicable-not attempted and the patient did not perform the activity before the current illness, exacerbation or injury. 10-Not Attempted due to Environmental Limitations-(lack of equipment, weather restraints, etc.). 88-Not Attempted due to Medical Conditions or Safety Concerns. Roll Left to Right (QC): 3 Sit to Lying (QC): 3 Sit to Stand (QC): 4 Chair/Jbh-lr-Pydla Xfer(QC): 4 Car Transfer (QC): 3 Gait Training Does the Patient Walk?: Yes Distance: 220, 50 Walk 10 feet (QC): 4 Walk 50 ft with 2 Turns(QC): 4 Walk 150 ft (QC): 4 Walking 10ft/uneven surface-QC: 4 Gait Persons Needed: 1 Gait Assistive Device: FWW Wheelchair Training Does the Pt Use a Wheelchair?: No Wheel 50 ft with 2 turns (QC): 9 Wheel 150 ft (QC): 9 Type of Wheelchair: N/A Stair Training #of Steps: 1 1 Step (curb) (QC): 88 4 Steps (QC): 88 12 Steps (QC): 88 Balance Picking up an Object (QC): 4 ADL-Treatment Eating (QC): 6 (Pt sitting in recliner. Can open packages and use utensils by self.) Oral Hygiene (QC): 4 (CGA while pt standing at sink for safety. Pt able to complete oral care by self. ) Bathing Location: L Arm, R Arm, L Upper Leg, R Upper Leg, L Lower Leg (including foot), Chest, Abdomen, Buttocks, Perineal Area Shower/Bathe Self (QC): 3 (CGA while pt stands for safety in shower. Pt able to clean buttocks. Pt able to wash L foot, needs assistance to wash R foot. Will introduce long-handled sponge in shower session.) Upper Body Dressing (QC): 5 (set up clothes on walker. Pt able to don/doff shirt. ) Lower Body Dressing (QC): 4 (CGA in standing while pt pull down/hike pants over hips. Pt able to thread pants around feet while donning/doffing.) On/Off Footwear (QC): 3 (Pt able to doff both socks by using toes to hook sock. Assistance given to don R sock, pt able to don L sock. Pt may benefit from a sock aid while mobility in the knee is limited. ) Toileting Hygiene (QC): 4 (CGA while pt stands to complete hygiene. 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
[2023-05-04] MEDS: diphenhydrAMINE 25 MG TABLET PO PRN (14:02)
[2023-05-04 19:38] VITALS: BP 161/93
[2023-05-04] MEDS: SERTRALINE 50 MG TABLET PO SCH (20:23)
[2023-05-04] MEDS: ASPIRIN enteric coated 81MG TABLET PO SCH (20:23)
--- NOTE | 2023-05-05 04:46 | PM&R Progress Note ---
Subjective HPI/CC On Admission Date Seen by Provider: May 05, 2023 Time Seen by Provider: 11:00 Subjective/Events-last exam 05/05/2023: Patient doing pretty well No pain is reported except for knee Drank grape juice and now getting thickened tongue We will hold any grape products 05/04/2023: Patient doing a lot better Pain is more controlled No falls Reviewed meds and labs No more hives but her tongue is "thickened" 05/03/2023: No major issues except hives She has hives at home periodically Singulair and Claritin started 05/02/2023: Patient doing a lot better Pain is controlled No major concerns Bowel regimen maintained 05/01/2023: Much improved pain today No falls PT OT participation is good No falls No nausea Review of Systems General: Fatigue, Malaise Objective Exam Vital Signs Vital Signs Date Time Temp Pulse Resp B/P (MAP) Pulse Ox O2 Delivery O2 Flow Rate FiO2 05/05/23 09:00 Room Air 05/05/23 07:22 36.3 74 18 142/70 (94) 96 Capillary Refill : General Appearance: No Apparent Distress, WD/WN, Obese HEENT: PERRL/EOMI, Normal ENT Inspection, Pharynx Normal Neck: Full Range of Motion, Normal Inspection, Non Tender, Supple, Carotid Bruit Respiratory: Chest Non Tender, Lungs Clear, Normal Breath Sounds, No Accessory Muscle Use, No Respiratory Distress Cardiovascular: Regular Rate, Rhythm, No Edema, No Gallop, No JVD, No Murmur, Normal Peripheral Pulses Gastrointestinal: Normal Bowel Sounds, No Organomegaly, No Pulsatile Mass, Non Tender, Soft Back: Normal Inspection, No CVA Tenderness, No Vertebral Tenderness Extremity: Normal Capillary Refill, Normal Inspection, Normal Range of Motion, Non Tender, No Calf Tenderness, No Pedal Edema Neurologic/Psychiatric: Alert, Oriented x3, knot tying operator II-XII Norm as Tested, Abnormal Gait, Depressed Affect, Motor Weakness (Right leg due to pain) Skin: Normal Color, Warm/Dry Lymphatic: No Adenopathy Results/Procedures Lab Laboratory Tests 05/05/23 05:17 Patient resulted labs reviewed. FIM Transfers Therapy Code Descriptions/Definitions Functional [place] Measure: 0=Not Assessed/NA 4=Minimal Assistance 1=Total Assistance 5=Supervision or Setup 2=Maximal Assistance 6=Modified [place] 3=Moderate Assistance 7=Complete IndependenceSCALE: Activities may be completed with or without assistive devices. 3-Jktwmtehsi-nndrkkz completes the activity by him/herself with no assistance from a helper. 5-Set-up or Clean-up Assistance-helper sets up or cleans up; patient completes activity. [place] assists only prior to or following the activity. 4-Supervision or Touching Assistance-helper provides verbal cues and/or t ouching/steadying and/or contact guard assistance as patient completes activity. Assistance may be provided throughout the activity or intermittently. 3-Partial/Moderate Assistance-helper does LESS THAN HALF the effort. [place] lifts, holds or supports trunk or limbs, but provides less than half the effort. 2-Substantial/Maximal Assistance-helper does MORE THAN HALF the effort. [place] lifts or holds trunk or limbs and provides more than half the effort. 5-Xsosxiwim-kvatec does ALL the effort. Patient does none of the effort to complete the activity. Or, the assistance of 2 or more helpers is required for the patient to complete the activity. If activity was not attempted, code reason: 7-Patient Refused. 9-Not Applicable-not attempted and the patient did not perform the activity before the current illness, exacerbation or injury. 10-Not Attempted due to Environmental Limitations-(lack of equipment, weather restraints, etc.). 88-Not Attempted due to Medical Conditions or Safety Concerns. Roll Left to Right (QC): 3 Sit to Lying (QC): 3 Sit to Stand (QC): 4 Chair/Kxt-cj-Vetbh Xfer(QC): 4 Car Transfer (QC): 3 Gait Training Does the Patient Walk?: Yes Distance: 220, 50 Walk 10 feet (QC): 4 Walk 50 ft with 2 Turns(QC): 4 Walk 150 ft (QC): 4 Walking 10ft/uneven surface-QC: 4 Gait Persons Needed: 1 Gait Assistive Device: FWW Wheelchair Training Does the Pt Use a Wheelchair?: No Wheel 50 ft with 2 turns (QC): 9 Wheel 150 ft (QC): 9 Type of Wheelchair: N/A Stair Training #of Steps: 1 1 Step (curb) (QC): 88 4 Steps (QC): 88 12 Steps (QC): 88 Balance Picking up an Object (QC): 4 ADL-Treatment Eating (QC): 6 (Pt sitting in recliner. Can open packages and use utensils by self.) Oral Hygiene (QC): 4 (CGA while pt standing at sink for safety. Pt able to complete oral care by self. ) Bathing Location: L Arm, R Arm, L Upper Leg, R Upper Leg, L Lower Leg (including foot), Chest, Abdomen, Buttocks, Perineal Area Shower/Bathe Self (QC): 3 (CGA while pt stands for safety in shower. Pt able to clean buttocks. Pt able to wash L foot, needs assistance to wash R foot. Will introduce long-handled sponge in shower session.) Upper Body Dressing (QC): 5 (set up clothes on walker. Pt able to don/doff shirt. ) Lower Body Dressing (QC): 4 (CGA in standing while pt pull down/hike pants over hips. Pt able to thread pants around feet while donning/doffing.) On/Off Footwear (QC): 3 (Pt able to doff both socks by using toes to hook sock. Assistance given to don R sock, pt able to don L sock. Pt may benefit from a sock aid while mobility in the knee is limited. ) Toileting Hygiene (QC): 4 (CGA while pt stands to complete hygiene. 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
[2023-05-05] MEDS: LEVOTHYROXINE 88 MCG TABLET PO SCH (05:03)
[2023-05-05 06:02] LABS: BASOPHILS # (AUTO) 0.1 10^3/uL (0.0-0.1); BASOPHILS % (AUTO) 1 % (0-10); EOSINOPHILS # (AUTO) 0.3 10^3/uL (0.0-0.3); EOSINOPHILS % (AUTO) 4 % (0-10); HEMATOCRIT 37 % (35-52); HEMOGLOBIN 12.1 g/dL (11.5-16.0); LYMPHOCYTES % (AUTO) 28 % (12-44); MEAN CORPUSCULAR HEMOGLOBIN 30 pg (25-34); MEAN CORPUSCULAR HGB CONC 33 g/dL (32-36); MEAN CORPUSCULAR VOLUME 91 fL (80-99); MEAN PLATELET VOLUME 10.4 fL (9.0-12.2); MONOCYTES # (AUTO) 0.6 10^3/uL (0.0-1.0); MONOCYTES % (AUTO) 8 % (0-12); NEUTROPHILS # (AUTO) 4.3 10^3/uL (1.8-7.8); NEUTROPHILS % (AUTO) 59 % (42-75); PLATELET COUNT 400 10^3/uL (130-400); WHITE BLOOD COUNT 7.2 10^3/uL (4.3-11.0)
[2023-05-05 06:25] LABS: ALBUMIN 3.6 GM/DL (3.2-4.5); BILIRUBIN,TOTAL 0.4 MG/DL (0.1-1.0); CALCIUM 9.3 MG/DL (8.5-10.1); CREATININE SERUM 0.79 MG/DL (0.60-1.30); POTASSIUM 3.8 MMOL/L (3.6-5.0); TOTAL PROTEIN 6.2 GM/DL (6.4-8.2)
[2023-05-05] MEDS: POTASSIUM CHLORIDE 10 MEQ TABLET PO SCH (06:54)
[2023-05-05] MEDS: THERAPEUTIC MULTIVITAMIN W/MINERALS TABLET PO SCH (06:54)
[2023-05-05] MEDS: oxyCODONE IMMEDIATE RELEASE 5 MG TABLET PO PRN ×2 (06:57→17:49)
[2023-05-05] MEDS: diphenhydrAMINE 25 MG TABLET PO PRN ×2 (06:57→20:30)
[2023-05-05 07:22] VITALS: BP 142/70
[2023-05-05] MEDS: VITAMIN D3 25 MCG (1,000 UNITS) TABLET PO SCH (08:44)
[2023-05-05] MEDS: FOLIC ACID 1 MG TAB PO SCH (08:44)
[2023-05-05] MEDS: LORATADINE 10 MG TABLET PO SCH (08:44)
[2023-05-05] MEDS: MONTELUKAST 10 MG TABLET PO SCH (08:44)
[2023-05-05] MEDS: LOSARTAN 100 MG TABLET PO SCH (08:45)
[2023-05-05] MEDS: APIXABAN 2.5 MG TABLET PO SCH ×2 (08:45→20:30)
[2023-05-05] MEDS: SENNA W/DOCUSATE TABLET PO SCH ×2 (08:46→20:31)
[2023-05-05] MEDS: CELECOXIB 100 MG CAPSULE PO SCH ×2 (08:46→20:30)
[2023-05-05] MEDS: DOCUSATE SODIUM 100 MG CAPSULE PO SCH ×2 (08:46→20:31)
--- NOTE | 2023-05-05 12:29 | Occupational Ther Daily Note ---
OT Current Status-Daily Note Subjective Pt alert, sitting in recliner. Pt agrees to therapy, stated pain was a 4/10 in R knee during tx session. Nrsg notified. OT/PT CoTx ([id number]), skills of 2 clinicians required for pt education on ADL techniques, bed mobility techniques, and problem solving during community mobility. OT focus on education for ADL modifications and energy conservation techniques for functional tasks. PT focus on education for bed mobility techniques and community mobility for functional tasks. Mental Status/Objective Patient Orientation: Person, Place, Time, Situation ADL-Treatment Therapy Code Descriptions/Definitions Functional [place] Measure: 0=Not Assessed/NA 4=Minimal Assistance 1=Total Assistance 5=Supervision or Setup 2=Maximal Assistance 6=Modified [place] 3=Moderate Assistance 7=Complete IndependenceSCALE: Activities may be completed with or without assistive devices. 8-Hikefgetab-plamxoa completes the activity by him/herself with no assistance from a helper. 5-Set-up or Clean-up Assistance-helper sets up or cleans up; patient completes activity. [place] assists only prior to or following the activity. 4-Supervision or Touching Assistance-helper provides verbal cues and/or touching/steadying and/or contact guard assistance as patient completes activity. Assistance may be provided throughout the activity or intermittently. 3-Partial/Moderate Assistance-helper does LESS THAN HALF the effort. [place] lifts, holds or supports trunk or limbs, but provides less than half the effort. 2-Substantial/Maximal Assistance-helper does MORE THAN HALF the effort. [place] lifts or holds trunk or limbs and provides more than half the effort. 2-Axnjfmllo-luorcf does ALL the effort. Patient does none of the effort to complete the activity. Or, the assistance of 2 or more helpers is required for the patient to complete the activity. If activity was not attempted, code reason: 7-Patient Refused. 9-Not Applicable-not attempted and the patient did not perform the activity before the current illness, exacerbation or injury. 10-Not Attempted due to Environmental Limitations-(lack of equipment, weather restraints, etc.). 88-Not Attempted due to Medical Conditions or Safety Concerns. Oral Hygiene (QC): 6 (Pt standing at sink to complete oral hygiene) Upper Body Dressing (QC): 5 (Pt able to don/doff shirt with clothes placed on walker. Will work on clothing retrieval in next session.) Lower Body Dressing (QC): 5 (Clothing set up on FWW. Pt able to thread underwear/pants around feet and stand using FWW for support when hiking pants over hips. ) Toileting Hygiene (QC): 6 (Pt able to fully clean and manipulate clothing after BM using grab bars for support while standing. ) Toilet Transfer (QC): 4 (SBA for safety when ambulating in bathroom with FWW.) Other Treatment Pt ambulated with FWW from room to therapy gym, SBA for safety. Pt completed two functional tasks in // bars while standing. Pt working on standing tolerance, dynamic standing balance, activity tolerance, and B UE strengthening against gravity for functional tasks. Pt able to gradually stand for greater amounts of time with seated resting breaks in-between. Pt was able to tolerate up to 13 mins and 30 secs of standing while completing functional activity at white board. Pt working on B UE AROM, activity tolerance, and static standing balance for functional tasks. PT/OT CoTx ([id number]) Pt ambulated back to room from therapy gym with FWW, SBA. Pt sitting in recliner while skilled education by PT/OT was given about pt concerns after discharge. Pt showed concerns for bed mobility at home and stairs in the community. Skilled instruction required for problem solving and potential modifications for her bed at home. Ended session with pt in PTs care with call light/phone in reach. All needs met in room. Education OT Patient Education: Correct positioning, Energy conservation, Modified ADL techniques Teaching Recipient: Patient Teaching Methods: Demonstration, Discussion Response to Teaching: Verbalize Understanding, Return Demonstration OT [facility] Goals Cellar Worker Goals Time Frame: May 16, 2023 Acute change in mental status: 0 Inattention: 0 Disorganized thinkin Altered level of consciousness: 0 Eating (QC): 6 Oral Hygiene (QC): 6 Toileting Hygiene (QC): 6 Shower/Bathe Self (QC): 6 Upper Body Dressing (QC): 6 (IND with shirt only. No bra) Lower Body Dressing (QC): 6 On/Off Footwear (QC): 6 Additional Goals: 1-Demonstrate ADL Tasks, 2-Verbalize Understanding, 3- ImproveStrength/Michael 1=Demonstrate adherence to instructed precautions during ADL tasks. 2=Patient will verbalize/demonstrate understanding of assistive devices/modifications for ADL. 3=Patient will improve strength/tolerance for activity to enable patient to perform ADL's. OT Education/Plan Problem List/Assessment Assessment: Decreased Activ Tolerance, Decreased UE Strength, Impaired Bed Mobility, Impaired Self-Care Skills Discharge Recommendations Plan/Recommendations: Continue POC Treatment Plan/Plan of Care Patient would benefit from OT for education, treatment and training to promote independence in ADL's, mobility, safety and/or upper extremity function for ADL's. Plan of Care: ADL Retraining, Functional Mobility, Group Exercise/Act as Ind, UE Funct Exercise/Act Treatment Duration: May 16, 2023 Frequency: At least 5 of 7 days/Wk (IRF) Estimated Hrs Per Day: 1.5 hours per day Agreement: Yes Rehab Potential: Good Time Start Time: 08:45 Stop Time: 10:15 DATE: May 05, 2023 Total Time Billed (hr/min): 90 Billed Treatment Time 1 visit- ADL 1 (20 min) FA 5 (70), CoTx ([id number]), individual ([id number]) GEORGE DESOUZA May 05, 2023 12:29
--- NOTE | 2023-05-05 14:07 | Physical Therapy Daily Note ---
PT Daily Note-Current Subjective Pt sitting in recliner upon arrival. Pt agrees to PT. Pain Numeric Pain Scale: 3 Location: Right, Incisional Location Body Site: Knee Pain Description: Ache Section J - Health Conditions 1. Rarely or not at all 2. Occasionally 3. Frequently 4. Almost constantly 8. Unable to answer Pain Effect on Sleep: 2 Pain Interference with Therapy: 3 Pain Interference w/Day-to-Day: 3 Mental Status Patient Orientation: Person, Place, Time, Situation Transfers SCALE: Activities may be completed with or without assistive devices. 3-Yaobbsfnen-rdgqupi completes the activity by him/herself with no assistance from a helper. 5-Set-up or Clean-up Assistance-helper sets up or cleans up; patient completes activity. [place] assists only prior to or following the activity. 4-Supervision or Touching Assistance-helper provides verbal cues and/or touching/steadying and/or contact guard assistance as patient completes activity. Assistance may be provided throughout the activity or intermittently. 3-Partial/Moderate Assistance-helper does LESS THAN HALF the effort. [place] lifts, holds or supports trunk or limbs, but provides less than half the effort. 2-Substantial/Maximal Assistance-helper does MORE THAN HALF the effort. [place] lifts or holds trunk or limbs and provides more than half the effort. 8-Fjlcuqdcm-aecvbs does ALL the effort. Patient does none of the effort to complete the activity. Or, the assistance of 2 or more helpers is required for the patient to complete the activity. If activity was not attempted, code reason: 7-Patient Refused. 9-Not Applicable-not attempted and the patient did not perform the activity before the current illness, exacerbation or injury. 10-Not Attempted due to Environmental Limitations-(lack of equipment, weather restraints, etc.). 88-Not Attempted due to Medical Conditions or Safety Concerns. Roll Left & Right (QC): 5 Sit to Lying (QC): 5 Lying to Sitting/Side of Bed(Q: 5 Sit to Stand (QC): 6 Chair/Sok-rd-Fwgql Xfer(QC): 6 Toilet Transfer (QC): 6 Car Transfer (QC): 5 Pt used bed rails, explained bed cane Weight Bearing Right Lower Extremity: Right Weight Bearing/Tolerated Left Lower Extremity: Left Full Weight Bearing Gait Training Does the Patient Walk?: Yes Distance: 153' Walk 10 feet (QC): 5 Walk 50 ft with 2 Turns(QC): 5 Walk 150 ft (QC): 5 Walking 10ft/uneven surface-QC: 5 Gait Assistive Device: FWW Wheelchair Training Does the Pt Use a Wheelchair?: No Wheel 50 ft with 2 turns (QC): 9 Wheel 150 ft (QC): 9 Stair Training 12 Steps (QC): 9 Balance Picking up an Object (QC): 6 Treatments Pt completes QC scoring items listed above before returning to room to rest. All needs met, call light in hand. Assessment Current Status: Good Progress Pt chapin. tx well & has gained strength and ROM. PT Director Foundation Goals Fpc Goals PT Fpc Goals Time Frame: May 14, 2023 Roll Left & Right (QC): 6 (Pt will be Mod I with functional mobility to safely return home with spouse. ) Sit to Lying (QC): 6 (Pt will be Mod I with functional mobility to safely return home with spouse. ) Lying-Sitting on Side/Bed(QC): 6 (Pt will be Mod I with functional mobility to safely return home with spouse. ) Sit to Stand (QC): 6 (Pt will be Mod I with functional mobility to safely return home with spouse. ) Chair/Awb-yt-Njgxr Xfer(QC): 6 (Pt will be Mod I with functional mobility to safely return home with spouse. ) Toilet Transfer (QC): 6 (Pt will be Mod I with functional mobility to safely return home with spouse. ) Car Transfer (QC): 6 (Pt will be Mod I with functional mobility to safely return home with spouse. ) Does the Patient Walk: Yes Walk 10 feet (QC): 6 (Pt will be Mod I with functional mobility to safely return home with spouse. ) Walk 50ft with 2 Turns (QC): 6 (Pt will be Mod I with functional mobility to safely return home with spouse. ) Walk 150 ft (QC): 6 (Pt will be Mod I with functional mobility to safely return home with spouse. ) Walking 10ft on Uneven Surface: 6 (Pt will be Mod I with functional mobility to safely return home with spouse. ) 1 Step (curb) (QC): 6 (Pt will be Mod I with functional mobility to safely return home with spouse. ) 4 Steps (QC): 6 (Pt will be Mod I with functional mobility to safely return home with spouse. ) 12 Steps (QC): 9 Picking up an Object (QC): 6 (Mod I with tandem mill roller ) Does the Pt use WC or Scooter?: No Wheel 50 feet with 2 turns (QC: 9 Type: N/A Wheel 150 feet: 9 Type: N/A PT Plan Treatment/Plan Treatment Plan: Continue Plan of Care Treatment Plan: Bed Mobility, Education, Functional Activity Michael, Functional Strength, Group Therapy, Gait, Safety, Therapeutic Exercise, Transfers Treatment Duration: May 14, 2023 Frequency: At least 5 of 7 days/Wk (IRF) Estimated Hrs Per Day: 1.5 hours per day Patient and/or Family Agrees t: Yes Time Time In: 1000 Time Out: 1100 DATE: May 05, 2023 Total Billed Treatment Time: 60 Total Billed Treatment 1, GT (20m) & FA x3 (40m) MATEO RODRIGEZ MANAGER EXPORT May 05, 2023 14:07
--- NOTE | 2023-05-05 16:40 | Physical Therapy Daily Note ---
PT Daily Note-Current Subjective Pt sitting in recliner upon arrival. Pt agrees to PT. Pain Location: Right Location Body Site: Knee Pain Description: Ache Comment: Reports but doesn't rate Section J - Health Conditions 1. Rarely or not at all 2. Occasionally 3. Frequently 4. Almost constantly 8. Unable to answer Pain Effect on Sleep: 2 Pain Interference with Therapy: 3 Pain Interference w/Day-to-Day: 3 Mental Status Patient Orientation: Person, Place, Time, Situation Transfers SCALE: Activities may be completed with or without assistive devices. 8-Domqpbxdex-qbrinvp completes the activity by him/herself with no assistance from a helper. 5-Set-up or Clean-up Assistance-helper sets up or cleans up; patient completes activity. [place] assists only prior to or following the activity. 4-Supervision or Touching Assistance-helper provides verbal cues and/or touching/steadying and/or contact guard assistance as patient completes activity. Assistance may be provided throughout the activity or intermittently. 3-Partial/Moderate Assistance-helper does LESS THAN HALF the effort. [place] lifts, holds or supports trunk or limbs, but provides less than half the effort. 2-Substantial/Maximal Assistance-helper does MORE THAN HALF the effort. [place] lifts or holds trunk or limbs and provides more than half the effort. 4-Nyysbnlpp-jcjfgx does ALL the effort. Patient does none of the effort to complete the activity. Or, the assistance of 2 or more helpers is required for the patient to complete the activity. If activity was not attempted, code reason: 7-Patient Refused. 9-Not Applicable-not attempted and the patient did not perform the activity before the current illness, exacerbation or injury. 10-Not Attempted due to Environmental Limitations-(lack of equipment, weather restraints, etc.). 88-Not Attempted due to Medical Conditions or Safety Concerns. Sit to Stand (QC): 6 Toilet Transfer (QC): 6 Weight Bearing Right Lower Extremity: Right Weight Bearing/Tolerated Left Lower Extremity: Left Full Weight Bearing Gait Training Does the Patient Walk?: Yes Distance: 350' Walk 10 feet (QC): 5 Walk 50 ft with 2 Turns(QC): 5 Walk 150 ft (QC): 5 Gait Assistive Device: FWW Exercises Seated Therapy Exercises: Ankle pumps, Long arc quads, Hamstring Curls, Hip abd/add Seated Reps: 15 Treatments Pt completes Seated EX before wanting to walk in hallway. Pt returns asking to use BR. Pt uses toilet, given call light to use when finished & Nurse will assist. All needs met at end of tx. Assessment Current Status: Good Progress Pt chapin. tx. well. PT Generator Switchboard Operator Goals [facility] Goals PT Generator Switchboard Operator Goals Time Frame: May 14, 2023 Roll Left & Right (QC): 6 (Pt will be Mod I with functional mobility to safely return home with spouse. ) Sit to Lying (QC): 6 (Pt will be Mod I with functional mobility to safely return home with spouse. ) Lying-Sitting on Side/Bed(QC): 6 (Pt will be Mod I with functional mobility to safely return home with spouse. ) Sit to Stand (QC): 6 (Pt will be Mod I with functional mobility to safely return home with spouse. ) Chair/Tjb-xe-Wiehq Xfer(QC): 6 (Pt will be Mod I with functional mobility to safely return home with spouse. ) Toilet Transfer (QC): 6 (Pt will be Mod I with functional mobility to safely return home with spouse. ) Car Transfer (QC): 6 (Pt will be Mod I with functional mobility to safely return home with spouse. ) Does the Patient Walk: Yes Walk 10 feet (QC): 6 (Pt will be Mod I with functional mobility to safely return home with spouse. ) Walk 50ft with 2 Turns (QC): 6 (Pt will be Mod I with functional mobility to safely return home with spouse. ) Walk 150 ft (QC): 6 (Pt will be Mod I with functional mobility to safely return home with spouse. ) Walking 10ft on Uneven Surface: 6 (Pt will be Mod I with functional mobility to safely return home with spouse. ) 1 Step (curb) (QC): 6 (Pt will be Mod I with functional mobility to safely return home with spouse. ) 4 Steps (QC): 6 (Pt will be Mod I with functional mobility to safely return home with spouse. ) 12 Steps (QC): 9 Picking up an Object (QC): 6 (Mod I with purchasing administrative assistant ) Does the Pt use WC or Scooter?: No Wheel 50 feet with 2 turns (QC: 9 Type: N/A Wheel 150 feet: 9 Type: N/A PT Plan Treatment/Plan Treatment Plan: Continue Plan of Care Treatment Plan: Bed Mobility, Education, Functional Activity Michael, Functional Strength, Group Therapy, Gait, Safety, Therapeutic Exercise, Transfers Treatment Duration: May 14, 2023 Frequency: At least 5 of 7 days/Wk (IRF) Estimated Hrs Per Day: 1.5 hours per day Patient and/or Family Agrees t: Yes Time Time In: 1400 Time Out: 1430 DATE: May 05, 2023 Total Billed Treatment Time: 30 Total Billed Treatment 1, EX (15m) & GT (15m) MATEO RODRIGEZ GEOCHEMIST May 05, 2023 16:40
[2023-05-05 20:15] VITALS: BP 132/85
[2023-05-05] MEDS: SERTRALINE 50 MG TABLET PO SCH (20:30)
[2023-05-05] MEDS: ASPIRIN enteric coated 81MG TABLET PO SCH (20:30)
[2023-05-06] MEDS: LEVOTHYROXINE 88 MCG TABLET PO SCH (05:02)
[2023-05-06] MEDS: oxyCODONE IMMEDIATE RELEASE 5 MG TABLET PO PRN ×2 (05:08→16:29)
--- NOTE | 2023-05-06 05:09 | PM&R Progress Note ---
Subjective HPI/CC On Admission Date Seen by Provider: May 06, 2023 Time Seen by Provider: 11:00 Subjective/Events-last exam 05/06/2023: Patient doing well Pain is controlled Hives are regular occurrence Pain medication could very well be causing this too 05/05/2023: Patient doing pretty well No pain is reported except for knee Drank grape juice and now getting thickened tongue We will hold any grape products 05/04/2023: Patient doing a lot better Pain is more controlled No falls Reviewed meds and labs No more hives but her tongue is "thickened" 05/03/2023: No major issues except hives She has hives at home periodically Singulair and Claritin started 05/02/2023: Patient doing a lot better Pain is controlled No major concerns Bowel regimen maintained 05/01/2023: Much improved pain today No falls PT OT participation is good No falls No nausea Review of Systems General: Fatigue, Malaise Musculoskeletal: leg pain Objective Exam Vital Signs Vital Signs Date Time Temp Pulse Resp B/P (MAP) Pulse Ox O2 Delivery O2 Flow Rate FiO2 05/06/23 09:26 Room Air 05/06/23 07:29 36.2 79 18 124/78 (93) 95 Capillary Refill : General Appearance: No Apparent Distress, WD/WN, Obese HEENT: PERRL/EOMI, Normal ENT Inspection, Pharynx Normal Neck: Full Range of Motion, Normal Inspection, Non Tender, Supple, Carotid Bruit Respiratory: Chest Non Tender, Lungs Clear, Normal Breath Sounds, No Accessory Muscle Use, No Respiratory Distress Cardiovascular: Regular Rate, Rhythm, No Edema, No Gallop, No JVD, No Murmur, Normal Peripheral Pulses Gastrointestinal: Normal Bowel Sounds, No Organomegaly, No Pulsatile Mass, Non Tender, Soft Back: Normal Inspection, No CVA Tenderness, No Vertebral Tenderness Extremity: Normal Capillary Refill, Normal Inspection, Normal Range of Motion, Non Tender, No Calf Tenderness, No Pedal Edema Neurologic/Psychiatric: Alert, Oriented x3, value stream coach II-XII Norm as Tested, Abnormal Gait, Depressed Affect, Motor Weakness (Right leg due to pain) Skin: Normal Color, Warm/Dry Lymphatic: No Adenopathy Results/Procedures Lab Patient resulted labs reviewed. [facility] Transfers Therapy Code Descriptions/Definitions Functional [place] Measure: 0=Not Assessed/NA 4=Minimal Assistance 1=Total Assistance 5=Supervision or Setup 2=Maximal Assistance 6=Modified [place] 3=Moderate Assistance 7=Complete IndependenceSCALE: Activities may be completed with or without assistive devices. 4-Tuhdvsxfzq-cqmhllm completes the activity by him/herself with no assistance from a helper. 5-Set-up or Clean-up Assistance-helper sets up or cleans up; patient completes activity. [place] assists only prior to or following the activity. 4-Supervision or Touching Assistance-helper provides verbal cues and/or touching/steadying and/or contact guard assistance as patient completes activity. Assistance may be provided throughout the activity or intermittently. 3-Partial/Moderate Assistance-helper does LESS THAN HALF the effort. [place] lifts, holds or supports trunk or limbs, but provides less than half the effort. 2-Substantial/Maximal Assistance-helper does MORE THAN HALF the effort. [place] lifts or holds trunk or limbs and provides more than half the effort. 9-Ffoqldanw-bkmxae does ALL the effort. Patient does none of the effort to complete the activity. Or, the assistance of 2 or more helpers is required for the patient to complete the activity. If activity was not attempted, code reason: 7-Patient Refused. 9-Not Applicable-not attempted and the patient did not perform the activity before the current illness, exacerbation or injury. 10-Not Attempted due to Environmental Limitations-(lack of equipment, weather restraints, etc.). 88-Not Attempted due to Medical Conditions or Safety Concerns. Roll Left to Right (QC): 5 Sit to Lying (QC): 5 Sit to Stand (QC): 6 Chair/Ref-pu-Wqzfc Xfer(QC): 6 Car Transfer (QC): 5 Gait Training Does the Patient Walk?: Yes Distance: 350' Walk 10 feet (QC): 5 Walk 50 ft with 2 Turns(QC): 5 Walk 150 ft (QC): 5 Walking 10ft/uneven surface-QC: 5 Gait Persons Needed: 1 Gait Assistive Device: FWW Wheelchair Training Does the Pt Use a Wheelchair?: No Wheel 50 ft with 2 turns (QC): 9 Wheel 150 ft (QC): 9 Type of Wheelchair: N/A Stair Training #of Steps: 1 1 Step (curb) (QC): 88 4 Steps (QC): 88 12 Steps (QC): 9 Balance Picking up an Object (QC): 6 ADL-Treatment Eating (QC): 6 (Pt sitting in recliner. Can open packages and use utensils by self.) Oral Hygiene (QC): 6 (Pt standing at sink to complete oral hygiene) Bathing Location: L Arm, R Arm, L Upper Leg, R Upper Leg, L Lower Leg (including foot), Chest, Abdomen, Buttocks, Perineal Area Shower/Bathe Self (QC): 3 (CGA while pt stands for safety in shower. Pt able to clean buttocks. Pt able to wash L foot, needs assistance to wash R foot. Will introduce long-handled sponge in shower session.) Upper Body Dressing (QC): 5 (Pt able to don/doff shirt with clothes placed on walker. Will work on clothing retrieval in next session.) Lower Body Dressing (QC): 5 (Clothing set up on FWW. Pt able to thread underwear/pants around feet and stand using FWW for support when hiking pants over hips. ) On/Off Footwear (QC): 3 (Pt able to doff both socks by using toes to hook sock. Assistance given to don R sock, pt able to don L sock. Pt may benefit from a sock aid while mobility in the knee is limited. ) Toileting Hygiene (QC): 6 (Pt able to fully clean and manipulate clothing after BM using grab bars for support while standing. 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
[2023-05-06] MEDS: THERAPEUTIC MULTIVITAMIN W/MINERALS TABLET PO SCH (06:53)
[2023-05-06] MEDS: POTASSIUM CHLORIDE 10 MEQ TABLET PO SCH (06:53)
[2023-05-06] MEDS: diphenhydrAMINE 25 MG TABLET PO PRN ×2 (06:55→21:14)
[2023-05-06 07:29] VITALS: BP 124/78
[2023-05-06] MEDS: MONTELUKAST 10 MG TABLET PO SCH (09:02)
[2023-05-06] MEDS: LOSARTAN 100 MG TABLET PO SCH (09:02)
[2023-05-06] MEDS: FOLIC ACID 1 MG TAB PO SCH (09:02)
[2023-05-06] MEDS: LORATADINE 10 MG TABLET PO SCH (09:02)
[2023-05-06] MEDS: APIXABAN 2.5 MG TABLET PO SCH ×2 (09:02→21:10)
[2023-05-06] MEDS: CELECOXIB 100 MG CAPSULE PO SCH ×2 (09:02→21:10)
[2023-05-06] MEDS: VITAMIN D3 25 MCG (1,000 UNITS) TABLET PO SCH (09:03)
[2023-05-06] MEDS: DOCUSATE SODIUM 100 MG CAPSULE PO SCH ×2 (10:29→21:14)
[2023-05-06] MEDS: SENNA W/DOCUSATE TABLET PO SCH ×2 (10:30→21:15)
--- NOTE | 2023-05-06 10:43 | Occupational Ther Daily Note ---
OT Current Status-Daily Note Subjective Pt alert, sitting in recliner. Pt agrees to therapy, no c/o of pain during tx session. Mental Status/Objective Patient Orientation: Person, Place, Time, Situation ADL-Treatment Therapy Code Descriptions/Definitions Functional [place] Measure: 0=Not Assessed/NA 4=Minimal Assistance 1=Total Assistance 5=Supervision or Setup 2=Maximal Assistance 6=Modified [place] 3=Moderate Assistance 7=Complete IndependenceSCALE: Activities may be completed with or without assistive devices. 0-Bhpwocgxmd-mjpfhnl completes the activity by him/herself with no assistance from a helper. 5-Set-up or Clean-up Assistance-helper sets up or cleans up; patient completes activity. [place] assists only prior to or following the activity. 4-Supervision or Touching Assistance-helper provides verbal cues and/or touching/steadying and/or contact guard assistance as patient completes activity. Assistance may be provided throughout the activity or intermittently. 3-Partial/Moderate Assistance-helper does LESS THAN HALF the effort. [place] lifts, holds or supports trunk or limbs, but provides less than half the effort. 2-Substantial/Maximal Assistance-helper does MORE THAN HALF the effort. [place] lifts or holds trunk or limbs and provides more than half the effort. 5-Cwflvxybw-wrzvkq does ALL the effort. Patient does none of the effort to complete the activity. Or, the assistance of 2 or more helpers is required for the patient to complete the activity. If activity was not attempted, code reason: 7-Patient Refused. 9-Not Applicable-not attempted and the patient did not perform the activity before the current illness, exacerbation or injury. 10-Not Attempted due to Environmental Limitations-(lack of equipment, weather restraints, etc.). 88-Not Attempted due to Medical Conditions or Safety Concerns. Eating (QC): 6 (Pt has displayed independence with eating by opening packages and using utensils properly.) Oral Hygiene (QC): 6 (Pt standing at sink using FWW for support to complete oral care. ) Bathing Location: L Arm, R Arm, L Upper Leg, R Upper Leg, L Lower Leg (including foot), R Lower Leg (including foot), Chest, Abdomen, Buttocks, Perineal Area Shower/Bathe Self (QC): 6 (Pt given long-handled sponge to wash feet and lower legs. Pt used grab bars to stand while cleaning buttocks and curtis area. ) Upper Body Dressing (QC): 6 (Pt able to retrieve clothing and place on FWW prior to getting in the shower. Able to don/doff shirt. Pt chose not to wear bra. ) Lower Body Dressing (QC): 6 (Pt able to thread underwear/pants around feet and pull up to knees. Used FWW to steady while standing to hike pants over hips. ) On/Off Footwear: 3 (Pt introduced to sock aid to don R sock. Pt still unable to don sock due to rough skin on heel sticking. Pt able to don L sock and doff both. ) Toileting Hygiene (QC): 6 (Pt able to clean after BM and manipulate clothing.) Toilet Transfer (QC): 6 (Pt utilized FWW and grab bars during transfer.) Other Treatment After ADLs, pt completed bed mobility due to pt concerns after discharge. Pt stated she had a high bed and needed something to hold onto. OTAS educated pt and pts daughter on bed cane options and modifications to her bed to assist in bed mobility at home. Pt then walked outside the room around [employer] to work on flexion/extension of the knee during ambulation with the MARK HAMMOND for safety. During tx, pt working on B UE strengthening, bed mobility, ADLs, and AROM in the knee for functional tasks. Pt required minimal VCs to bend her knee during ambulation due to her wanting to lock it into full extension. Pt then ambulated back to room with STEPHANY SBA. Sitting in recliner, pt educated on B UE HEP with medium resistive band. Skilled instruction required by OTAS for proper positioning/movement during exercises. Ended session with pt sitting in recliner with call light/phone in reach. All needs met. Education OT Patient Education: Correct positioning, Home exercise program, Transfer techniques, Use of adapted equipment Teaching Recipient: Patient, Family Teaching Methods: Demonstration, Discussion Response to Teaching: Verbalize Understanding, Return Demonstration BIMS CAM BIMS Expression of Ideas and Wants: Without Difficulty Understanding Verbal Content: Understands Brief Interview/Mental Status: Yes IRF GILBERT BIMS: IRF GILBERT BIMS Response (Comments) Value Repitition of Three Words Three 3 Recalls Socks Yes, No Cue Required 2 Recalls Blue Yes, No Cue Required 2 Recalls Bed Yes, No Cue Required 2 Year Correct 3 Month Accurate Within 5 Days 2 Day Correct 1 Total 15 Patient Normally Able to Recal: Current Session, Location of own room, Staff Names and faces, That he/she in a hsp Should Staff Asses. Mental St.: No Memory/Recall Ability: Current Season, Location of Own Room, Staff Names and Faces, That He/She in [facility] Mental Status Change/Baseline: 0 Inattention: 0 Disorganized thinkin Altered level of consciousness: 0 OT Short Term Goals Short Term Goals Time Frame: May 06, 2023 OT Custodial Goals Custodial Goals Time Frame: May 16, 2023 Acute change in mental status: 0 Inattention: 0 Disorganized thinkin Altered level of consciousness: 0 Eating (QC): 6 Oral Hygiene (QC): 6 Toileting Hygiene (QC): 6 Shower/Bathe Self (QC): 6 Upper Body Dressing (QC): 6 (IND with shirt only. No bra) Lower Body Dressing (QC): 6 On/Off Footwear (QC): 6 Additional Goals: 1-Demonstrate ADL Tasks, 2-Verbalize Understanding, 3-ImproveStrength/Michael 1=Demonstrate adherence to instructed precautions during ADL tasks. 2=Patient will verbalize/demonstrate understanding of assistive devices/modifications for ADL. 3=Patient will improve strength/tolerance for activity to enable patient to perform ADL's. OT Education/Plan Problem List/Assessment Assessment: Decreased Activ Tolerance, Decreased UE Strength, Impaired Bed Mobility, Impaired Self-Care Skills Discharge Recommendations Plan/Recommendations: Continue POC Treatment Plan/Plan of Care Patient would benefit from OT for education, treatment and training to promote independence in ADL's, mobility, safety and/or upper extremity function for ADL's. Plan of Care: ADL Retraining, Functional Mobility, Group Exercise/Act as Ind, UE Funct Exercise/Act Treatment Duration: May 16, 2023 Frequency: At least 5 of 7 days/Wk (IRF) Estimated Hrs Per Day: 1.5 hours per day Agreement: Yes Rehab Potential: Good Time Start Time: 07:30 Stop Time: 09:00 DATE: May 06, 2023 Total Time Billed (hr/min): 90 Billed Treatment Time 1 visit- ADL 2 (30 min) FA 2 (30 min) EX 2 (30 min) GEORGE DESOUZA May 06, 2023 10:43
--- NOTE | 2023-05-06 10:55 | Physical Therapy Daily Note ---
PT Daily Note-Current Subjective Pt reports she is doing well and is agreeable to PT. R knee paint = 4/10 Pain Numeric Pain Scale: 4 Location: Right Location Body Site: Knee Section J - Health Conditions 1. Rarely or not at all 2. Occasionally 3. Frequently 4. Almost constantly 8. Unable to answer Pain Effect on Sleep: 1 Pain Interference with Therapy: 2 Pain Interference w/Day-to-Day: 1 Transfers SCALE: Activities may be completed with or without assistive devices. 4-Umclnsnneb-msoiqfw completes the activity by him/herself with no assistance from a helper. 5-Set-up or Clean-up Assistance-helper sets up or cleans up; patient completes activity. [place] assists only prior to or following the activity. 4-Supervision or Touching Assistance-helper provides verbal cues and/or touchi ng/steadying and/or contact guard assistance as patient completes activity. Assistance may be provided throughout the activity or intermittently. 3-Partial/Moderate Assistance-helper does LESS THAN HALF the effort. [place] lifts, holds or supports trunk or limbs, but provides less than half the effort. 2-Substantial/Maximal Assistance-helper does MORE THAN HALF the effort. [place] lifts or holds trunk or limbs and provides more than half the effort. 7-Ofmphlttj-dcsien does ALL the effort. Patient does none of the effort to complete the activity. Or, the assistance of 2 or more helpers is required for the patient to complete the activity. If activity was not attempted, code reason: 7-Patient Refused. 9-Not Applicable-not attempted and the patient did not perform the activity before the current illness, exacerbation or injury. 10-Not Attempted due to Environmental Limitations-(lack of equipment, weather restraints, etc.). 88-Not Attempted due to Medical Conditions or Safety Concerns. Sit to Stand (QC): 6 Weight Bearing Right Lower Extremity: Right Weight Bearing/Tolerated Left Lower Extremity: Left Full Weight Bearing Gait Training Does the Patient Walk?: Yes Walk 10 feet (QC): 5 Walk 50 ft with 2 Turns(QC): 5 Walk 150 ft (QC): 5 Gait Assistive Device: FWW Wheelchair Training Does the Pt Use a Wheelchair?: No Wheel 50 ft with 2 turns (QC): 9 Wheel 150 ft (QC): 9 Type of Wheelchair: N/A Treatments Pt completed functional transfers with Mod I. Pt ambulated 350ft x 2 with the FWW and set-up. Pt completed seated B LE Ther Ex x 15 reps each with the red Tband. Pt completed R knee flex/ext stretches 3 x 1 min each. Pt completed 20 min on the nu-step on level 1. After treatment session, pt sitting up in the recliner with call light in reach and all needs met. Assessment Current Status: Good Progress Pt tolerated PT well with good effort PT Senior Living Goals Senior Living Goals PT Community Service Aide Goals Time Frame: May 14, 2023 Roll Left & Right (QC): 6 (Pt will be Mod I with functional mobility to safely return home with spouse. ) Sit to Lying (QC): 6 (Pt will be Mod I with functional mobility to safely return home with spouse. ) Lying-Sitting on Side/Bed(QC): 6 (Pt will be Mod I with functional mobility to safely return home with spouse. ) Sit to Stand (QC): 6 (Pt will be Mod I with functional mobility to safely return home with spouse. ) Chair/Wnc-dn-Rlkrz Xfer(QC): 6 (Pt will be Mod I with functional mobility to safely return home with spouse. ) Toilet Transfer (QC): 6 (Pt will be Mod I with functional mobility to safely return home with spouse. ) Car Transfer (QC): 6 (Pt will be Mod I with functional mobility to safely return home with spouse. ) Does the Patient Walk: Yes Walk 10 feet (QC): 6 (Pt will be Mod I with functional mobility to safely return home with spouse. ) Walk 50ft with 2 Turns (QC): 6 (Pt will be Mod I with functional mobility to safely return home with spouse. ) Walk 150 ft (QC): 6 (Pt will be Mod I with functional mobility to safely return home with spouse. ) Walking 10ft on Uneven Surface: 6 (Pt will be Mod I with functional mobility to safely return home with spouse. ) 1 Step (curb) (QC): 6 (Pt will be Mod I with functional mobility to safely return home with spouse. ) 4 Steps (QC): 6 (Pt will be Mod I with functional mobility to safely return home with spouse. ) 12 Steps (QC): 9 Picking up an Object (QC): 6 (Mod I with cosmetic account coordinator ) Does the Pt use WC or Scooter?: No Wheel 50 feet with 2 turns (QC: 9 Type: N/A Wheel 150 feet: 9 Type: N/A PT Plan Problem List Problem List: Activity Tolerance, Functional Strength, Safety, Balance, Gait, Transfer, Bed Mobility, ROM Treatment/Plan Treatment Plan: Continue Plan of Care Treatment Plan: Bed Mobility, Education, Functional Activity Michael, Functional Strength, Group Therapy, Gait, Safety, Therapeutic Exercise, Transfers Treatment Duration: May 14, 2023 Frequency: At least 5 of 7 days/Wk (IRF) Estimated Hrs Per Day: 1.5 hours per day Patient and/or Family Agrees t: Yes Safety Risks/Education Patient Education: Gait Training, Transfer Techniques, Correct Positioning, Safety Issues Teaching Recipient: Patient Teaching Methods: Demonstration, Discussion Response to Teaching: Verbalize Understanding, Return Demonstration, Reinforcement Needed Discharge Recommendations Therapy Discharge Recommendati: Home & Family, Post Acute PT Discharge Status/Home Program Cont per POC Barriers to Progress R knee pain/ROM Target Placement Home with spouse support and outpatient PT Time Time In: 930 Time Out: 1100 DATE: May 06, 2023 Total Billed Treatment Time: 90 Total Billed Treatment 90 min 1 visit EX x 2 GT x 2 FA x 2 SAHIL VERMA PT May 06, 2023 10:55
[2023-05-06 20:20] VITALS: BP 146/82
[2023-05-06] MEDS: ASPIRIN enteric coated 81MG TABLET PO SCH (21:10)
[2023-05-06] MEDS: SERTRALINE 50 MG TABLET PO SCH (21:14)
[2023-05-07] MEDS: oxyCODONE IMMEDIATE RELEASE 5 MG TABLET PO PRN (01:30)
--- NOTE | 2023-05-07 05:16 | PM&R Progress Note ---
Subjective HPI/CC On Admission Date Seen by Provider: May 07, 2023 Time Seen by Provider: 12:00 Subjective/Events-last exam 05/07/2023: Set for discharge tomorrow Benadryl helps hives Supportive care we will continue 05/06/2023: Patient doing well Pain is controlled Hives are regular occurrence Pain medication could very well be causing this too 05/05/2023: Patient doing pretty well No pain is reported except for knee Drank grape juice and now getting thickened tongue We will hold any grape products 05/04/2023: Patient doing a lot better Pain is more controlled No falls Reviewed meds and labs No more hives but her tongue is "thickened" 05/03/2023: No major issues except hives She has hives at home periodically Singulair and Claritin started 05/02/2023: Patient doing a lot better Pain is controlled No major concerns Bowel regimen maintained 05/01/2023: Much improved pain today No falls PT OT participation is good No falls No nausea Review of Systems General: Fatigue, Malaise Objective Exam Vital Signs Vital Signs Date Time Temp Pulse Resp B/P (MAP) Pulse Ox O2 Delivery O2 Flow Rate FiO2 05/07/23 12:50 Room Air 05/07/23 09:00 93 05/07/23 08:00 36.7 80 17 116/63 (80) Capillary Refill : General Appearance: No Apparent Distress, WD/WN, Obese HEENT: PERRL/EOMI, Normal ENT Inspection, Pharynx Normal Neck: Full Range of Motion, Normal Inspection, Non Tender, Supple, Carotid Bruit Respiratory: Chest Non Tender, Lungs Clear, Normal Breath Sounds, No Accessory Muscle Use, No Respiratory Distress Cardiovascular: Regular Rate, Rhythm, No Edema, No Gallop, No JVD, No Murmur, Normal Peripheral Pulses Gastrointestinal: Normal Bowel Sounds, No Organomegaly, No Pulsatile Mass, Non Tender, Soft Back: Normal Inspection, No CVA Tenderness, No Vertebral Tenderness Extremity: Normal Capillary Refill, Normal Inspection, Normal Range of Motion, Non Tender, No Calf Tenderness, No Pedal Edema Neurologic/Psychiatric: Alert, Oriented x3, repairer art objects II-XII Norm as Tested, Abnormal Gait, Depressed Affect, Motor Weakness (Right leg due to pain) Skin: Normal Color, Warm/Dry Lymphatic: No Adenopathy Results/Procedures Lab Patient resulted labs reviewed. FIM Transfers Therapy Code Descriptions/Definitions Functional [place] Measure: 0=Not Assessed/NA 4=Minimal Assistance 1=Total Assistance 5=Supervision or Setup 2=Maximal Assistance 6=Modified [place] 3=Moderate Assistance 7=Complete IndependenceSCALE: Activities may be completed with or without assistive devices. 7-Tzizakgndz-ddgsltp completes the activity by him/herself with no assistance from a helper. 5-Set-up or Clean-up Assistance-helper sets up or cleans up; patient completes activity. [place] assists only prior to or following the activity. 4-Supervision or Touching Assistance-helper provides verbal cues and/or touching/steadying and/or contact guard assistance as patient completes activity. Assistance may be provided throughout the activity or intermittently. 3-Partial/Moderate Assistance-helper does LESS THAN HALF the effort. [place] lifts, holds or supports trunk or limbs, but provides less than half the effort. 2-Substantial/Maximal Assistance-helper does MORE THAN HALF the effort. [place] lifts or holds trunk or limbs and provides more than half the effort. 4-Lviwxkxth-inyfwv does ALL the effort. Patient does none of the effort to complete the activity. Or, the assistance of 2 or more helpers is required for the patient to complete the activity. If activity was not attempted, code reason: 7-Patient Refused. 9-Not Applicable-not attempted and the patient did not perform the activity before the current illness, exacerbation or injury. 10-Not Attempted due to Environmental Limitations-(lack of equipment, weather restraints, etc.). 88-Not Attempted due to Medical Conditions or Safety Concerns. Roll Left to Right (QC): 5 Sit to Lying (QC): 5 Sit to Stand (QC): 6 Chair/Pnp-zw-Owsza Xfer(QC): 6 Car Transfer (QC): 5 Gait Training Does the Patient Walk?: Yes Distance: 350' Walk 10 feet (QC): 5 Walk 50 ft with 2 Turns(QC): 5 Walk 150 ft (QC): 5 Walking 10ft/uneven surface-QC: 5 Gait Persons Needed: 1 Gait Assistive Device: FWW Wheelchair Training Does the Pt Use a Wheelchair?: No Wheel 50 ft with 2 turns (QC): 9 Wheel 150 ft (QC): 9 Type of Wheelchair: N/A Stair Training #of Steps: 1 1 Step (curb) (QC): 88 4 Steps (QC): 88 12 Steps (QC): 9 Balance Picking up an Object (QC): 6 ADL-Treatment Eating (QC): 6 (Pt has displayed independence with eating by opening packages and using utensils properly.) Oral Hygiene (QC): 6 (Pt standing at sink using FWW for support to complete oral care. ) Bathing Location: L Arm, R Arm, L Upper Leg, R Upper Leg, L Lower Leg (including foot), R Lower Leg (including foot), Chest, Abdomen, Buttocks, Perineal Area Shower/Bathe Self (QC): 6 (Pt given long-handled sponge to wash feet and lower legs. Pt used grab bars to stand while cleaning buttocks and curtis area. ) Upper Body Dressing (QC): 6 (Pt able to retrieve clothing and place on FWW prior to getting in the shower. Able to don/doff shirt. Pt chose not to wear bra. ) Lower Body Dressing (QC): 6 (Pt able to thread underwear/pants around feet and pull up to knees. Used FWW to steady while standing to hike pants over hips. ) On/Off Footwear (QC): 3 (Pt introduced to sock aid to don R sock. Pt still unable to don sock due to rough skin on heel sticking. Pt able to don L sock and doff both. 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
[2023-05-07] MEDS: LEVOTHYROXINE 88 MCG TABLET PO SCH (06:22)
[2023-05-07] MEDS: POTASSIUM CHLORIDE 10 MEQ TABLET PO SCH (06:50)
[2023-05-07] MEDS: THERAPEUTIC MULTIVITAMIN W/MINERALS TABLET PO SCH (06:50)
[2023-05-07 08:00] VITALS: BP 116/63
[2023-05-07] MEDS: VITAMIN D3 25 MCG (1,000 UNITS) TABLET PO SCH (08:29)
[2023-05-07] MEDS: LORATADINE 10 MG TABLET PO SCH (08:30)
[2023-05-07] MEDS: APIXABAN 2.5 MG TABLET PO SCH ×2 (08:30→20:13)
[2023-05-07] MEDS: CELECOXIB 100 MG CAPSULE PO SCH ×2 (08:30→20:13)
[2023-05-07] MEDS: LOSARTAN 100 MG TABLET PO SCH (08:31)
[2023-05-07] MEDS: MONTELUKAST 10 MG TABLET PO SCH (08:31)
[2023-05-07] MEDS: FOLIC ACID 1 MG TAB PO SCH (08:31)
[2023-05-07] MEDS: DOCUSATE SODIUM 100 MG CAPSULE PO SCH ×2 (08:31→20:14)
[2023-05-07] MEDS: SENNA W/DOCUSATE TABLET PO SCH ×2 (08:32→20:13)
--- NOTE | 2023-05-07 09:09 | Physical Therapy Daily Note ---
PT Daily Note-Current Subjective Pt reports she is doing well and is agreeable to PT. Pt reports increased soreness on this date. Pt reported R knee pain at 4/10. Pain Numeric Pain Scale: 4 Location: Right Location Body Site: Knee Section J - Health Conditions 1. Rarely or not at all 2. Occasionally 3. Frequently 4. Almost constantly 8. Unable to answer Pain Effect on Sleep: 1 Pain Interference with Therapy: 2 Pain Interference w/Day-to-Day: 1 Transfers SCALE: Activities may be completed with or without assistive devices. 0-Fcbhgleqxy-olptjga completes the activity by him/herself with no assistance from a helper. 5-Set-up or Clean-up Assistance-helper sets up or cleans up; patient completes activity. [place] assists only prior to or following the activity. 4-Supervision or Touching Assistance-helper provides verbal cues and/or touching/steadying and/or contact guard assistance as patient completes activ ity. Assistance may be provided throughout the activity or intermittently. 3-Partial/Moderate Assistance-helper does LESS THAN HALF the effort. [place] lifts, holds or supports trunk or limbs, but provides less than half the effort. 2-Substantial/Maximal Assistance-helper does MORE THAN HALF the effort. [place] lifts or holds trunk or limbs and provides more than half the effort. 4-Iflmhwskq-hqcgda does ALL the effort. Patient does none of the effort to complete the activity. Or, the assistance of 2 or more helpers is required for the patient to complete the activity. If activity was not attempted, code reason: 7-Patient Refused. 9-Not Applicable-not attempted and the patient did not perform the activity before the current illness, exacerbation or injury. 10-Not Attempted due to Environmental Limitations-(lack of equipment, weather restraints, etc.). 88-Not Attempted due to Medical Conditions or Safety Concerns. Roll Left & Right (QC): 6 Sit to Lying (QC): 6 Lying to Sitting/Side of Bed(Q: 6 Sit to Stand (QC): 6 Chair/Koj-wi-Jpwba Xfer(QC): 6 Toilet Transfer (QC): 6 Car Transfer (QC): 6 Weight Bearing Right Lower Extremity: Right Weight Bearing/Tolerated Left Lower Extremity: Left Full Weight Bearing Gait Training Does the Patient Walk?: Yes Distance: 350ft x 2 Walk 10 feet (QC): 6 Walk 50 ft with 2 Turns(QC): 6 Walk 150 ft (QC): 6 Walking 10ft/uneven surface-QC: 6 Gait Assistive Device: FWW Wheelchair Training Does the Pt Use a Wheelchair?: No Wheel 50 ft with 2 turns (QC): 9 Wheel 150 ft (QC): 9 Type of Wheelchair: N/A Stair Training Stair Training: Handrails/: 2 handrails #of Steps: 4 1 Step (curb) (QC): 6 4 Steps (QC): 6 12 Steps (QC): 6 Stairs: Pattern: Step to Balance Picking up an Object (QC): 6 Treatments QCs completed on this date. Pt has progressed well with PT and has met all set goals. Pt is ready to d/c tomorrow. Pt is Mod I with bed mobility and functional transfers. Pt ambulated 350ft x 2 with the FWW and Mod I. Pt completed seated B LE Ther Ex x 15 reps each with the red Tband. Pt completed seated R knee flex/ext stretch 3 x 1 min each. After treatment session, pt sitting in the recliner with call light in reach and all needs met. Pt will require a FWW upon d/c. The pt has a mobility limitation that significantly impairs his ability to participate in one or more mobility-related activities of daily living in the h ome. The pt is able to safely use the FWW and the functional mobility deficit can be sufficiently resolved with use of the FWW. Assessment Current Status: Good Progress Pt tolerated PT well with good effort. Pt has progressed well and met all set goals. PT Prison Goals Client Reporting Associate Goals PT Prison Goals Time Frame: May 14, 2023 Roll Left & Right (QC): 6 (Pt will be Mod I with functional mobility to safely return home with spouse. ) Sit to Lying (QC): 6 (Pt will be Mod I with functional mobility to safely ret urn home with spouse. ) Lying-Sitting on Side/Bed(QC): 6 (Pt will be Mod I with functional mobility to safely return home with spouse. ) Sit to Stand (QC): 6 (Pt will be Mod I with functional mobility to safely r eturn home with spouse. ) Chair/Hnt-qm-Vlmrm Xfer(QC): 6 (Pt will be Mod I with functional mobility to safely return home with spouse. ) Toilet Transfer (QC): 6 (Pt will be Mod I with functional mobility to safely return home with spouse. ) Car Transfer (QC): 6 (Pt will be Mod I with functional mobility to safely ret urn home with spouse. ) Does the Patient Walk: Yes Walk 10 feet (QC): 6 (Pt will be Mod I with functional mobility to safely return home with spouse. ) Walk 50ft with 2 Turns (QC): 6 (Pt will be Mod I with functional mobility to safely return home with spouse. ) Walk 150 ft (QC): 6 (Pt will be Mod I with functional mobility to safely return home with spouse. ) Walking 10ft on Uneven Surface: 6 (Pt will be Mod I with functional mobility to safely return home with spouse. ) 1 Step (curb) (QC): 6 (Pt will be Mod I with functional mobility to safely return home with spouse. ) 4 Steps (QC): 6 (Pt will be Mod I with functional mobility to safely return home with spouse. ) 12 Steps (QC): 9 Picking up an Object (QC): 6 (Mod I with brass sorter ) Does the Pt use WC or Scooter?: No Wheel 50 feet with 2 turns (QC: 9 Type: N/A Wheel 150 feet: 9 Type: N/A PT Plan Problem List Problem List: Activity Tolerance, Functional Strength, Safety, Balance, Gait, Transfer, Bed Mobility, ROM Treatment/Plan Treatment Plan: Continue Plan of Care Treatment Plan: Bed Mobility, Education, Functional Activity Michael, Functional Strength, Group Therapy, Gait, Safety, Therapeutic Exercise, Transfers Treatment Duration: May 14, 2023 Frequency: At least 5 of 7 days/Wk (IRF) Estimated Hrs Per Day: 1.5 hours per day Patient and/or Family Agrees t: Yes Safety Risks/Education Patient Education: Gait Training, Transfer Techniques, Steps, Correct Positioning, Safety Issues Teaching Recipient: Patient Teaching Methods: Demonstration, Discussion Response to Teaching: Verbalize Understanding, Return Demonstration Discharge Recommendations Therapy Discharge Recommendati: Home & Family, Post Acute PT Equpiment Recommendations-D/C: Front Wheeled Walker Discharge Status/Home Program Cont per POC; D/C tomorrow (05/08/23) to home with spouse and outpatient PT Barriers to Progress R knee pain/ROM Target Placement Home with spouse and outpatient PT Time Time In: 900 Time Out: 1000 DATE: May 07, 2023 Total Billed Treatment Time: 60 Total Billed Treatment 60 min 1 visit FA x 1 EX x 1 GT x 2 SAHIL VERMA PT May 07, 2023 09:09
--- NOTE | 2023-05-07 10:01 | Occupational Ther Daily Note ---
OT Current Status-Daily Note Subjective Pt alert, sitting in recliner. Pt agreed to therapy. No c/o of pain during tx. Mental Status/Objective Patient Orientation: Person, Place, Time, Situation ADL-Treatment Therapy Code Descriptions/Definitions Functional [place] Measure: 0=Not Assessed/NA 4=Minimal Assistance 1=Total Assistance 5=Supervision or Setup 2=Maximal Assistance 6=Modified [place] 3=Moderate Assistance 7=Complete IndependenceSCALE: Activities may be completed with or without assistive devices. 7-Zdbgmbjrmf-zclyeva completes the activity by him/herself with no assistance from a helper. 5-Set-up or Clean-up Assistance-helper sets up or cleans up; patient completes activity. [place] assists only prior to or following the activity. 4-Supervision or Touching Assistance-helper provides verbal cues and/or touching /steadying and/or contact guard assistance as patient completes activity. Assistance may be provided throughout the activity or intermittently. 3-Partial/Moderate Assistance-helper does LESS THAN HALF the effort. [place] lifts, holds or supports trunk or limbs, but provides less than half the effort. 2-Substantial/Maximal Assistance-helper does MORE THAN HALF the effort. [place] lifts or holds trunk or limbs and provides more than half the effort. 0-Jvmwfddcj-nwtfuf does ALL the effort. Patient does none of the effort to complete the activity. Or, the assistance of 2 or more helpers is required for the patient to complete the activity. If activity was not attempted, code reason: 7-Patient Refused. 9-Not Applicable-not attempted and the patient did not perform the activity before the current illness, exacerbation or injury. 10-Not Attempted due to Environmental Limitations-(lack of equipment, weather restraints, etc.). 88-Not Attempted due to Medical Conditions or Safety Concerns. Oral Hygiene (QC): 6 (Pt standing at sink to complete oral care.) Upper Body Dressing (QC): 6 (Pt retrieved clothing and placed on FWW. Able to don/doff shirt IND.) Lower Body Dressing (QC): 6 (Pt able to thread underwear/pants around feet and use FWW to stabilize in standing while hiking pants over hips.) On/Off Footwear: 6 (Pt able to doff both socks. Able to use sock aid by applying lotion to sock aid to decrease friction.) Toileting Hygiene (QC): 6 (Pt able to clean after BM and manipulate clothing.) Toilet Transfer (QC): 6 (Pt utilized grab bars to stand and FWW to stabilize and ambulate around bathroom.) Other Treatment Pt ambulated from room down hallway and back to therapy gym with FWW, SBA for safety. Pt required one VC to bend her R knee during ambulation. Pt completed multiple functional activities in standing, working on dynamic standing balance, activity tolerance, weight-shifting, and B UE strengthening for functional tasks. Placed 2# wrist weights on pt during functional activities to increase B UE strengthening component. Pt was able to stand for ~20 mins with no c/o of pain or fatigue. Pt ambulated from therapy gym back to room with FWW, SBA. Ended session with pt sitting in recliner, all needs met in room. Education OT Patient Education: Correct positioning, Energy conservation, Modified ADL techniques, Use of adapted equipment Teaching Recipient: Patient Teaching Methods: Discussion Response to Teaching: Verbalize Understanding, Return Demonstration OT Short Term Goals Short Term Goals Time Frame: May 06, 2023 OT Assisted Goals Assisted Goals Time Frame: May 16, 2023 Acute change in mental status: 0 Inattention: 0 Disorganized thinkin Altered level of consciousness: 0 Eating (QC): 6 (met) Oral Hygiene (QC): 6 (met) Toileting Hygiene (QC): 6 (met) Shower/Bathe Self (QC): 6 (met) Upper Body Dressing (QC): 6 (IND with shirt only. No bra-met) Lower Body Dressing (QC): 6 (met) On/Off Footwear (QC): 6 (met) Additional Goals: 1-Demonstrate ADL Tasks, 2-Verbalize Understanding, 3- ImproveStrength/Michael 1=Demonstrate adherence to instructed precautions during ADL tasks. 2=Patient will verbalize/demonstrate understanding of assistive devices/modifications for ADL. 3=Patient will improve strength/tolerance for activity to enable patient to perform ADL's. OT Education/Plan Problem List/Assessment Assessment: Decreased Activ Tolerance, Decreased UE Strength Discharge Recommendations Plan/Recommendations: Continue POC Treatment Plan/Plan of Care Patient would benefit from OT for education, treatment and training to promote independence in ADL's, mobility, safety and/or upper extremity function for ADL's. Plan of Care: ADL Retraining, Functional Mobility, Group Exercise/Act as Ind, UE Funct Exercise/Act Treatment Duration: May 16, 2023 Frequency: At least 5 of 7 days/Wk (IRF) Estimated Hrs Per Day: 1.5 hours per day Agreement: Yes Rehab Potential: Good Time Start Time: 07:30 Stop Time: 09:00 DATE: May 07, 2023 Total Time Billed (hr/min): 90 Billed Treatment Time 1 visit, ADL 2 (30 min) FA 4 (60 min) GEORGE DESOUZA May 07, 2023 10:01
--- NOTE | 2023-05-07 13:19 | Occupational Ther Daily Note ---
OT Current Status-Daily Note Subjective Pt alert, sitting in recliner upon arrival. Pt agreed to therapy, no c/o of pain during tx session. OT got extra 30 minutes with pt. Mental Status/Objective Patient Orientation: Person, Place, Time, Situation ADL-Treatment Therapy Code Descriptions/Definitions Functional [place] Measure: 0=Not Assessed/NA 4=Minimal Assistance 1=Total Assistance 5=Supervision or Setup 2=Maximal Assistance 6=Modified [place] 3=Moderate Assistance 7=Complete IndependenceSCALE: Activities may be completed with or without assistive devices. 8-Vcjyvthhpv-tqskflo completes the activity by him/herself with no assistance from a helper. 5-Set-up or Clean-up Assistance-helper sets up or cleans up; patient completes activity. [place] assists only prior to or following the activity. 4-Supervision or Touching Assistance-helper provides verbal cues and/or touching/steadying and/or contact guard assistance as patient completes activity. Assistance may be provided throughout the activity or intermittently. 3-Partial/Moderate Assistance-helper does LESS THAN HALF the effort. [place] lifts, holds or supports trunk or limbs, but provides less than half the effort. 2-Substantial/Maximal Assistance-helper does MORE THAN HALF the effort. [place] lifts or holds trunk or limbs and provides more than half the effort. 3-Jjboolekn-csubox does ALL the effort. Patient does none of the effort to complete the activity. Or, the assistance of 2 or more helpers is required for the patient to complete the activity. If activity was not attempted, code reason: 7-Patient Refused. 9-Not Applicable-not attempted and the patient did not perform the activity before the current illness, exacerbation or injury. 10-Not Attempted due to Environmental Limitations-(lack of equipment, weather restraints, etc.). 88-Not Attempted due to Medical Conditions or Safety Concerns. Other Treatment Pt ambulated from room to hallway with FWW, SBA for safety. Pt encouraged to focus on flexion/extension of the knee during ambulation. Pt in therapy gym working on ambulating with FWW and picking up cones from the floor on both sides of the body. Pt able to bend both knees while reaching down to picker feeder items, working on dynamic standing balance, postural control, flexion/extension of B knees, and activity tolerance for functional tasks. No LOB noted. Pt ambulated back to room from therapy gym with FWW, SBA. Ended session with pt sitting in recliner with call light/phone in reach. All needs met. Education OT Patient Education: Energy conservation, Purpose of tx/functional activities Teaching Recipient: Patient Teaching Methods: Demonstration, Discussion Response to Teaching: Verbalize Understanding, Return Demonstration OT Short Term Goals Short Term Goals Time Frame: May 06, 2023 OT Sausage Cooker Goals Jail Goals Time Frame: May 16, 2023 Acute change in mental status: 0 Inattention: 0 Disorganized thinkin Altered level of consciousness: 0 Eating (QC): 6 Oral Hygiene (QC): 6 Toileting Hygiene (QC): 6 Shower/Bathe Self (QC): 6 Upper Body Dressing (QC): 6 (IND with shirt only. No bra) Lower Body Dressing (QC): 6 On/Off Footwear (QC): 6 Additional Goals: 1-Demonstrate ADL Tasks, 2-Verbalize Understanding, 3- ImproveStrength/Michael 1=Demonstrate adherence to instructed precautions during ADL tasks. 2=Patient will verbalize/demonstrate understanding of assistive devices/modifications for ADL. 3=Patient will improve strength/tolerance for activity to enable patient to perform ADL's. OT Education/Plan Problem List/Assessment Assessment: Decreased Activ Tolerance, Impaired Funct Balance Discharge Recommendations Plan/Recommendations: Continue POC Treatment Plan/Plan of Care Patient would benefit from OT for education, treatment and training to promote independence in ADL's, mobility, safety and/or upper extremity function for ADL's. Plan of Care: ADL Retraining, Functional Mobility, Group Exercise/Act as Ind, UE Funct Exercise/Act Treatment Duration: May 16, 2023 Frequency: At least 5 of 7 days/Wk (IRF) Estimated Hrs Per Day: 1.5 hours per day Agreement: Yes Rehab Potential: Good Time Start Time: 12:40 Stop Time: 13:10 DATE: May 07, 2023 Total Time Billed (hr/min): 30 Billed Treatment Time 1 visit- FA 2 (30 min) GEORGE DESOUZA May 07, 2023 13:19
[2023-05-07] MEDS: ACETAMINOPHEN 325 MG TABLET PO PRN (15:11)
[2023-05-07] MEDS: SERTRALINE 50 MG TABLET PO SCH (20:13)
[2023-05-07] MEDS: ASPIRIN enteric coated 81MG TABLET PO SCH (20:13)
[2023-05-07 20:29] VITALS: BP 145/68
[2023-05-08] MEDS: oxyCODONE IMMEDIATE RELEASE 5 MG TABLET PO PRN (00:10)
[2023-05-08] MEDS: LEVOTHYROXINE 88 MCG TABLET PO SCH (05:41)
[2023-05-08] MEDS: THERAPEUTIC MULTIVITAMIN W/MINERALS TABLET PO SCH (06:53)
[2023-05-08] MEDS: POTASSIUM CHLORIDE 10 MEQ TABLET PO SCH (06:53)
[2023-05-08 07:17] VITALS: BP 113/74
[2023-05-08] MEDS ORDERED: APIX2.5T PO (07:51)
[2023-05-08] MEDS ORDERED: POTA-160 PO (07:51)
[2023-05-08] MEDS ORDERED: OXC5T PO (07:51)
--- NOTE | 2023-05-08 07:52 | Discharge Summary ---
Diagnosis/Chief Complaint Date of Admission Apr 30, 2023 at 11:50 Date of Discharge Discharge Date: May 08, 2023 Discharge Summary Discharge Physical Examination Allergies: Coded Allergies: morphine (Verified Allergy, Mild, 04/28/23) RED STREAKS UP THE ARM SOON IT WAS ADMINISTERED. Sulfa (Sulfonamide Antibiotics) (Verified Allergy, Unknown, 04/15/23) TAKES METHOTREXATE--WAS INSTRUCTED TO NEVER TAKE IT. Vitals & I&Os Vital Signs Date Time Temp Pulse Resp B/P (MAP) Pulse Ox O2 Delivery O2 Flow Rate FiO2 05/08/23 08:57 Room Air 05/08/23 07:17 36.3 79 18 113/74 (87) 05/07/23 20:29 95 Hospital Course Labs (last 24 hrs) Laboratory Tests 05/01/23 05:29: White Blood Count 11.6H, Red Blood Count 4.24, Hemoglobin 12.6, Hematocrit 38, Mean Corpuscular Volume 90, Mean Corpuscular Hemoglobin 30, Mean Corpuscular Hemoglobin Concent 33, Red Cell Distribution Width 14.6H, Platelet Count 360, Mean Platelet Volume 10.7, Immature Granulocyte % (Auto) 0, Neutrophils (%) (Auto) 71, Lymphocytes (%) (Auto) 19, Monocytes (%) (Auto) 8, Eosinophils (%) (Auto) 2, Basophils (%) (Auto) 1, Neutrophils # (Auto) 8.2H, Lymphocytes # (Auto) 2.1, Monocytes # (Auto) 0.9, Eosinophils # (Auto) 0.2, Basophils # (Auto) 0.1, Immature Granulocyte # (Auto) 0.0, Sodium Level 140, Potassium Level 3.2L, Chloride Level 101, Carbon Dioxide Level 27, Anion Gap 12, Blood Urea Nitrogen 19H, Creatinine 0.82, Estimat Glomerular Filtration Rate 76, BUN/Creatinine Ratio 23, Glucose Level 118H, Calcium Level 9.6, Corrected Calcium 9.9, Total Bilirubin 0.7, Aspartate Amino Transf (AST/SGOT) 27, Alanine Aminotransferase (ALT/SGPT) 27, Alkaline Phosphatase 92, Total Protein 6.6, Albumin 3.6 05/05/23 05:17: White Blood Count 7.2, Red Blood Count 4.09, Hemoglobin 12.1, Hematocrit 37, Mean Corpuscular Volume 91, Mean Corpuscular Hemoglobin 30, Mean Corpuscular Hemoglobin Concent 33, Red Cell Distribution Width 14.4, Platelet Count 400, Mean Platelet Volume 10.4, Immature Granulocyte % (Auto) 1, Neutrophils (%) (Auto) 59, Lymphocytes (%) (Auto) 28, Monocytes (%) (Auto) 8, Eosinophils (%) (Auto) 4, Basophils (%) (Auto) 1, Neutrophils # (Auto) 4.3, Lymphocytes # (Auto) 2.0, Monocytes # (Auto) 0.6, Eosinophils # (Auto) 0.3, Basophils # (Auto) 0.1, Immature Granulocyte # (Auto) 0.1, Sodium Level 141, Potassium Level 3.8, Chloride Level 104, Carbon Dioxide Level 28, Anion Gap 9, Blood Urea Nitrogen 20H, Creatinine 0.79, Estimat Glomerular Filtration Rate 80, BUN/Creatinine Ratio 25, Glucose Level 110H, Calcium Level 9.3, Corrected Calcium 9.6, Total Bilirubin 0.4, Aspartate Amino Transf (AST/SGOT) 18, Alanine Aminotransferase (ALT/SGPT) 42, Alkaline Phosphatase 135, Total Protein 6.2L, Albumin 3.6 Pending Labs Laboratory Tests 05/01/23 05:29: White Blood Count 11.6, Red Blood Count 4.24, Hemoglobin 12.6, Hematocrit 38, Mean Corpuscular Volume 90, Mean Corpuscular Hemoglobin 30, Mean Corpuscular Hemoglobin Concent 33, Red Cell Distribution Width 14.6, Platelet Count 360, Mean Platelet Volume 10.7, Immature Granulocyte % (Auto) 0, Neutrophils (%) (Auto) 71, Lymphocytes (%) (Auto) 19, Monocytes (%) (Auto) 8, Eosinophils (%) (Auto) 2, Basophils (%) (Auto) 1, Neutrophils # (Auto) 8.2, Lymphocytes # (Auto) 2.1, Monocytes # (Auto) 0.9, Eosinophils # (Auto) 0.2, Basophils # (Auto) 0.1, Immature Granulocyte # (Auto) 0.0, Sodium Level 140, Potassium Level 3.2, Chloride Level 101, Carbon Dioxide Level 27, Anion Gap 12, Blood Urea Nitrogen 19, Creatinine 0.82, Estimat Glomerular Filtration Rate 76, BUN/Creatinine Ratio 23, Glucose Level 118, Calcium Level 9.6, Corrected Calcium 9.9, Total Bilirubin 0.7, Aspartate Amino Transf (AST/SGOT) 27, Alanine Aminotransferase (ALT/SGPT) 27, Alkaline Phosphatase 92, Total Protein 6.6, Albumin 3.6 05/05/23 05:17: White Blood Count 7.2, Red Blood Count 4.09, Hemoglobin 12.1, Hematocrit 37, Mean Corpuscular Volume 91, Mean Corpuscular Hemoglobin 30, Mean Corpuscular Hemoglobin Concent 33, Red Cell Distribution Width 14.4, Platelet Count 400, Mean Platelet Volume 10.4, Immature Granulocyte % (Auto) 1, Neutrophils (%) (Auto) 59, Lymphocytes (%) (Auto) 28, Monocytes (%) (Auto) 8, Eosinophils (%) (A uto) 4, Basophils (%) (Auto) 1, Neutrophils # (Auto) 4.3, Lymphocytes # (Auto) 2.0, Monocytes # (Auto) 0.6, Eosinophils # (Auto) 0.3, Basophils # (Auto) 0.1, Immature Granulocyte # (Auto) 0.1, Sodium Level 141, Potassium Level 3.8, Chloride Level 104, Carbon Dioxide Level 28, Anion Gap 9, Blood Urea Nitrogen 20, Creatinine 0.79, Estimat Glomerular Filtration Rate 80, BUN/Creatinine Ratio 25, Glucose Level 110, Calcium Level 9.3, Corrected Calcium 9.6, Total Bilirubin 0.4, Aspartate Amino Transf (AST/SGOT) 18, Alanine Aminotransferase (ALT/SGPT) 42, Alkaline Phosphatase 135, Total Protein 6.2, Albumin 3.6 Discharge Home Medications: Active Scripts Active Hydrocodone-Acetamin 5-325 mg (Hydrocodone/Acetaminophen) 5 Mg-325 Mg Tablet 1 Tab PO Q6H PRN Klor-Con 10 (Potassium Chloride) 10 Meq Tablet.er 10 Meq PO DAILY@0700 Eliquis (Apixaban) 2.5 Mg Tablet 2.5 Mg PO BID Reported Folic Acid 0.8 Mg Tablet 0.8 Mg PO DAILY Levothyroxine Sodium 88 Mcg Tablet 88 Mcg PO DAILY Vitamin D3 (Cholecalciferol (Vitamin D3)) 25 Mcg (1000 Unit) Capsule 25 Mcg PO DAILY Simvastatin 20 Mg Tablet 20 Mg PO HS Voltaren Arthritis Pain (Diclofenac Sodium) 1 % Gel..gram. 1 Applic TP Q6H PRN APPLY TO HANDS AND/OR KNEES Multivitamin 1 Each Tablet 1 Each PO DAILY Low Dose Aspirin EC (Aspirin) 81 Mg Tablet.dr 81 Mg PO DAILY Sertraline HCl 50 Mg Tablet 50 Mg PO HS Celecoxib 200 Mg Capsule 200 Mg PO BID Losartan-Hctz 100-12.5 mg Tab (Losartan/Hydrochlorothiazide) 100 Mg-12.5 Mg Tablet 1 Each PO DAILY Instructions to patient/family Please see electronic discharge instructions given to patient. Diagnosis/Problems Diagnosis/Problems (1) Primary osteoarthritis of right knee TEOFILO WINKLER DO May 08, 2023 07:52
[2023-05-08] MEDS: FOLIC ACID 1 MG TAB PO SCH (08:16)
[2023-05-08] MEDS: CELECOXIB 100 MG CAPSULE PO SCH (08:16)
[2023-05-08] MEDS: VITAMIN D3 25 MCG (1,000 UNITS) TABLET PO SCH (08:16)
[2023-05-08] MEDS: APIXABAN 2.5 MG TABLET PO SCH (08:16)
[2023-05-08] MEDS: LORATADINE 10 MG TABLET PO SCH (08:16)
[2023-05-08] MEDS: MONTELUKAST 10 MG TABLET PO SCH (08:16)
[2023-05-08] MEDS: LOSARTAN 100 MG TABLET PO SCH (08:16)
[2023-05-08] MEDS: SENNA W/DOCUSATE TABLET PO SCH (08:18)
[2023-05-08] MEDS: DOCUSATE SODIUM 100 MG CAPSULE PO SCH (08:18)
--- NOTE | 2023-05-08 09:29 | Therapy Team Discharge Summary ---
Therapy Discharge Summary Discharge Recommendations Date of Discharge Physical Therapy Roll Left to Right (QC): 6 Sit to Lying (QC): 6 Lying to Sitting/Side of Bed(Q: 6 Sit to Stand (QC): 6 Chair/Jhe-dd-Eytzb Xfer(QC): 6 Toilet Transfer (QC): 5 Car Transfer (QC): 6 Does the Patient Walk: Yes Mode of Locomotion: Walk Anticipated Mode of Locomotion: Walk Walk 10 feet (QC): 6 Walk 50 ft with 2 Turns(QC): 6 Walk 150 ft (QC): 6 Walking 10ft on uneven surface: 6 Gait Assistive Device: FWW Does the Pt Use a Wheelchair: No Wheel 50 ft with 2 turns (QC): 9 Wheel 150 ft (QC): 9 Type of Wheelchair: N/A #of Steps: 4 1 Step (curb) (QC): 6 4 Steps (QC): 6 12 Steps (QC): 6 Walking Assistive Device: Walker Balance Sitting Static: Normal Balance Sitting Dynamic: Good Balance-Standing Static: Fair Picking up an Object (QC): 6 Occupational Therapy Pt admitted to ARU s/p R TKA. At [facility], pt required assistance with some ADLS (assist with donning bra). Upon initial evaluation, pt required set up with eating, oral care, UE dressing (shirt only), and partial/mod A with showering, LE dressing, footwear and toileting. OT Tx focused on increasing BUE strength and activity tolerance, and increasing safety and independence with ADLs and functional mobility. Pt made good progress towards goals, meeting IND level with all ADLS. Pt discharging home, d/c from OT. Decreased Activ Tolerance, Impaired Funct Balance Eating (QC): 6 (Pt has displayed independence with eating by opening packages and using utensils properly.) Oral Hygiene (QC): 6 (Pt standing at sink to complete oral care.) Shower/Bathe Self (QC): 6 (Pt given long-handled sponge to wash feet and lower legs. Pt used grab bars to stand while cleaning buttocks and curtis area. ) Upper Body Dressing (QC): 6 (Pt retrieved clothing and placed on FWW. Able to don/doff shirt IND.) Lower Body Dressing (QC): 6 (Pt able to thread underwear/pants around feet and use FWW to stabilize in standing while hiking pants over hips.) On/Off Footwear (QC): 6 (Pt able to doff both socks. Able to use sock aid by applying lotion to sock aid to decrease friction.) Toileting Hygiene (QC): 6 (Pt able to clean after BM and manipulate clothing.) PT Garbage Collector Driver Goals Alf Goals PT Alf Goals Time Frame: May 14, 2023 Roll Left to Right (QC): 6 (Pt will be Mod I with functional mobility to safely return home with spouse. ) Sit to Lying (QC): 6 (Pt will be Mod I with functional mobility to safely return home with spouse. ) Lying-Sitting on Side/Bed(QC): 6 (Pt will be Mod I with functional mobility to safely return home with spouse. ) Sit to Stand (QC): 6 (Pt will be Mod I with functional mobility to safely return home with spouse. ) Chair/Oju-ue-Rtyrj Xfer(QC): 6 (Pt will be Mod I with functional mobility to safely return home with spouse. ) Toilet/Commode Transfer (QC): 6 (Pt will be Mod I with functional mobility to safely return home with spouse. ) Car Transfer (QC): 6 (Pt will be Mod I with functional mobility to safely return home with spouse. ) Does the Patient Walk: Yes Walk 10 feet (QC): 6 (Pt will be Mod I with functional mobility to safely return home with spouse. ) Walk 10ft-Uneven Surface(QC): 6 (Pt will be Mod I with functional mobility to safely return home with spouse. ) Walk 50ft with 2 Turns (QC): 6 (Pt will be Mod I with functional mobility to safely return home with spouse. ) Walk 150 ft (QC): 6 (Pt will be Mod I with functional mobility to safely return home with spouse. ) Does the Pt use WC or Scooter?: No Wheel 50 feet with 2 turns (QC: 9 Type: N/A Wheel 150 feet: 9 Type: N/A 1 Step (curb) (QC): 6 (Pt will be Mod I with functional mobility to safely return home with spouse. ) 4 Steps (QC): 6 (Pt will be Mod I with functional mobility to safely return home with spouse. ) 12 Steps (QC): 9 Picking up an Object (QC): 6 (Mod I with solar manufacturer's representative ) OT Garbage Collector Driver Goals Alf Goals Time Frame: May 16, 2023 Acute change in mental status: 0 Inattention: 0 Disorganized thinkin Altered level of consciousness: 0 Eating (QC): 6 (met) Oral Hygiene (QC): 6 (met) Toileting Hygiene (QC): 6 (met) Shower/Bathe Self (QC): 6 (met) Upper Body Dressing (QC): 6 (IND with shirt only. No bra-met) Lower Body Dressing (QC): 6 (met) On/Off Footwear (QC): 6 (met) Additional Goals: 1-Demonstrate ADL Tasks, 2-Verbalize Understanding, 3- ImproveStrength/Michael 1=Demonstrate adherence to instructed precautions during ADL tasks. 2=Patient will verbalize/demonstrate understanding of assistive devices/modifications for ADL. 3=Patient will improve strength/tolerance for activity to enable patient to perform ADL's. MILLY HYDE OT May 08, 2023 09:29
[2023-05-08] MEDS ORDERED: ACHD5005 PO (09:58)
--- NOTE | 2023-05-08 10:00 | Discharge Summary ---
Diagnosis/Chief Complaint Date of Admission Apr 30, 2023 at 11:50 Date of Discharge Discharge Date: May 08, 2023 Discharge Diagnosis Assessment: Right knee replacement due to OA/RA of right knee HTN Hyperlipidemia GERD hypothyroidism h/o hiatal hernia Depression Diverticulosis Hemorrhoids Urticaria Plan: Pain control Aggressive therapy Home meds PT and OT 05/01/2023: Monitor closely Pain control 05/02/2023: Supportive care Monitor closely 05/03/2023: Singulair and Claritin 05/04/2023: Supportive care Check labs in the morning 05/05/2023: Supportive care Avoid grapes 05/06/2023: Supportive care Antihistamines and leukotriene inhibitor 05/07/2023: Discharge home tomorrow (1) Primary osteoarthritis of right knee Discharge Summary Discharge Physical Examination Allergies: Coded Allergies: morphine (Verified Allergy, Mild, 04/28/23) RED STREAKS UP THE ARM SOON IT WAS ADMINISTERED. Sulfa (Sulfonamide Antibiotics) (Verified Allergy, Unknown, 04/15/23) TAKES METHOTREXATE--WAS INSTRUCTED TO NEVER TAKE IT. Vitals & I&Os Vital Signs Date Time Temp Pulse Resp B/P (MAP) Pulse Ox O2 Delivery O2 Flow Rate FiO2 05/08/23 13:41 36.3 79 18 113/74 95 Room Air General Appearance: Alert, Oriented X3, Cooperative Respiratory: Clear to Auscultation Cardiovascular: Regular Rate Psych/Mental Status: Mental Status NL Hospital Course Was the Problem List Reviewed?: Yes Uneventful course after she was transferred from 4th floor following uncompl icated knee replacement. MTX held so her RA flared which caused slow recovery. Hives did occur which is a chronic issue at home but Oxycodone was suspected so she was sent home on Hydrocodone. Overall she did well and gained back near baseline function and was able to be DC and return home. Labs (last 24 hrs) Laboratory Tests 05/01/23 05:29: White Blood Count 11.6H, Red Blood Count 4.24, Hemoglobin 12.6, Hematocrit 38, Mean Corpuscular Volume 90, Mean Corpuscular Hemoglobin 30, Mean Corpuscular Hemoglobin Concent 33, Red Cell Distribution Width 14.6H, Platelet Count 360, Mean Platelet Volume 10.7, Immature Granulocyte % (Auto) 0, Neutrophils (%) (Auto) 71, Lymphocytes (%) (Auto) 19, Monocytes (%) (Auto) 8, Eosinophils (%) (Auto) 2, Basophils (%) (Auto) 1, Neutrophils # (Auto) 8.2H, Lymphocytes # (Auto) 2.1, Monocytes # (Auto) 0.9, Eosinophils # (Auto) 0.2, Basophils # (Auto) 0.1, Immature Granulocyte # (Auto) 0.0, Sodium Level 140, Potassium Level 3.2L, Chloride Level 101, Carbon Dioxide Level 27, Anion Gap 12, Blood Urea Nitrogen 19H, Creatinine 0.82, Estimat Glomerular Filtration Rate 76, BUN/Creatinine Ratio 23, Glucose Level 118H, Calcium Level 9.6, Corrected Calcium 9.9, Total Bilirubin 0.7, Aspartate Amino Transf (AST/SGOT) 27, Alanine Aminotransferase (ALT/SGPT) 27, Alkaline Phosphatase 92, Total Protein 6.6, Albumin 3.6 05/05/23 05:17: White Blood Count 7.2, Red Blood Count 4.09, Hemoglobin 12.1, Hematocrit 37, Mean Corpuscular Volume 91, Mean Corpuscular Hemoglobin 30, Mean Corpuscular Hemoglobin Concent 33, Red Cell Distribution Width 14.4, Platelet Count 400, Mean Platelet Volume 10.4, Immature Granulocyte % (Auto) 1, Neutrophils (%) (Auto) 59, Lymphocytes (%) (Auto) 28, Monocytes (%) (Auto) 8, Eosinophils (%) (Auto) 4, Basophils (%) (Auto) 1, Neutrophils # (Auto) 4.3, Lymphocytes # (Auto) 2.0, Monocytes # (Auto) 0.6, Eosinophils # (Auto) 0.3, Basophils # (Auto) 0.1, Immature Granulocyte # (Auto) 0.1, Sodium Level 141, Potassium Level 3.8, Chloride Level 104, Carbon Dioxide Level 28, Anion Gap 9, Blood Urea Nitrogen 20H, Creatinine 0.79, Estimat Glomerular Filtration Rate 80, BUN/Creatinine Ratio 25, Glucose Level 110H, Calcium Level 9.3, Corrected Calcium 9.6, Total Bilirubin 0.4, Aspartate Amino Transf (AST/SGOT) 18, Alanine Aminotransferase (ALT/SGPT) 42, Alkaline Phosphatase 135, Total Protein 6.2L, Albumin 3.6 Pending Labs Laboratory Tests 05/01/23 05:29: White Blood Count 11.6, Red Blood Count 4.24, Hemoglobin 12.6, Hematocrit 38, Mean Corpuscular Volume 90, Mean Corpuscular Hemoglobin 30, Mean Corpuscular Hemoglobin Concent 33, Red Cell Distribution Width 14.6, Platelet Count 360, Mean Platelet Volume 10.7, Immature Granulocyte % (Auto) 0, Neutrophils (%) (Auto) 71, Lymphocytes (%) (Auto) 19, Monocytes (%) (Auto) 8, Eosinophils (%) (Auto) 2, Basophils (%) (Auto) 1, Neutrophils # (Auto) 8.2, Lymphocytes # (Auto) 2.1, Monocytes # (Auto) 0.9, Eosinophils # (Auto) 0.2, Basophils # (Auto) 0.1, Immature Granulocyte # (Auto) 0.0, Sodium Level 140, Potassium Level 3.2, Chloride Level 101, Carbon Dioxide Level 27, Anion Gap 12, Blood Urea Nitrogen 19, Creatinine 0.82, Estimat Glomerular Filtration Rate 76, BUN/Creatinine Ratio 23, Glucose Level 118, Calcium Level 9.6, Corrected Calcium 9.9, Total Bilirubin 0.7, Aspartate Amino Transf (AST/SGOT) 27, Alanine Aminotransferase (ALT/SGPT) 27, Alkaline Phosphatase 92, Total Protein 6.6, Albumin 3.6 05/05/23 05:17: White Blood Count 7.2, Red Blood Count 4.09, Hemoglobin 12.1, Hematocrit 37, Mean Corpuscular Volume 91, Mean Corpuscular Hemoglobin 30, Mean Corpuscular Hemoglobin Concent 33, Red Cell Distribution Width 14.4, Platelet Count 400, Mean Platelet Volume 10.4, Immature Granulocyte % (Auto) 1, Neutrophils (%) (Auto) 59, Lymphocytes (%) (Auto) 28, Monocytes (%) (Auto) 8, Eosinophils (%) (Auto) 4, Basophils (%) (Auto) 1, Neutrophils # (Auto) 4.3, Lymphocytes # (Auto) 2.0, Monocytes # (Auto) 0.6, Eosinophils # (Auto) 0.3, Basophils # (Auto) 0.1, Immature Granulocyte # (Auto) 0.1, Sodium Level 141, Potassium Level 3.8, Chloride Level 104, Carbon Dioxide Level 28, Anion Gap 9, Blood Urea Nitrogen 20, Creatinine 0.79, Estimat Glomerular Filtration Rate 80, BUN/Creatinine Ratio 25, Glucose Level 110, Calcium Level 9.3, Corrected Calcium 9.6, Total Bilirubin 0.4, Aspartate Amino Transf (AST/SGOT) 18, Alanine Aminotransferase (ALT/SGPT) 42, Alkaline Phosphatase 135, Total Protein 6.2, Albumin 3.6 Discharge Home Medications: Active Scripts Active Hydrocodone-Acetamin 5-325 mg (Hydrocodone/Acetaminophen) 5 Mg-325 Mg Tablet 1 Tab PO Q6H PRN Klor-Con 10 (Potassium Chloride) 10 Meq Tablet.er 10 Meq PO DAILY@0700 Eliquis (Apixaban) 2.5 Mg Tablet 2.5 Mg PO BID Reported Folic Acid 0.8 Mg Tablet 0.8 Mg PO DAILY Levothyroxine Sodium 88 Mcg Tablet 88 Mcg PO DAILY Vitamin D3 (Cholecalciferol (Vitamin D3)) 25 Mcg (1000 Unit) Capsule 25 Mcg PO DAILY Simvastatin 20 Mg Tablet 20 Mg PO HS Voltaren Arthritis Pain (Diclofenac Sodium) 1 % Gel..gram. 1 Applic TP Q6H PRN APPLY TO HANDS AND/OR KNEES Multivitamin 1 Each Tablet 1 Each PO DAILY Low Dose Aspirin EC (Aspirin) 81 Mg Tablet.dr 81 Mg PO DAILY Sertraline HCl 50 Mg Tablet 50 Mg PO HS Celecoxib 200 Mg Capsule 200 Mg PO BID Losartan-Hctz 100-12.5 mg Tab (Losartan/Hydrochlorothiazide) 100 Mg-12.5 Mg Tablet 1 Each PO DAILY Instructions to patient/family Please see electronic discharge instructions given to patient. Diagnosis/Problems Diagnosis/Problems (1) Primary osteoarthritis of right knee TEOFILO WINKLER DO May 08, 2023 10:00
[2023-05-08 13:41] VITALS: BP 113/74
--- NOTE | 2023-05-08 14:01 | Therapy Team Discharge Summary ---
Therapy Discharge Summary Discharge Recommendations Date of Discharge May 08, 2023 at 10:30 Therapy D/C Recommendations: Home w/ Family Support, Physical Therapy Outpatient Physical Therapy Pt is a 72 y/o female s/p R TKA on 04/28/23; Admitted to ARU on 04/30/23. At [facility], pt was Ind with no AD and driving. Upon PT eval, pt was Min A for bed mobility, CGA for transfers, and CGA for gait up to 50ft. PT focused on B LE strength, R knee ROM, endurance, functional mobility, balance/safety, and overall Ind. Pt progressed well with PT and met all set goals. Roll Left to Right (QC): 6 Sit to Lying (QC): 6 Lying to Sitting/Side of Bed(Q: 6 Sit to Stand (QC): 6 Chair/Xey-un-Znzgc Xfer(QC): 6 Toilet Transfer (QC): 6 Car Transfer (QC): 6 Does the Patient Walk: Yes Mode of Locomotion: Walk Anticipated Mode of Locomotion: Walk Walk 10 feet (QC): 6 Walk 50 ft with 2 Turns(QC): 6 Walk 150 ft (QC): 6 Walking 10ft on uneven surface: 6 Gait Assistive Device: FWW Does the Pt Use a Wheelchair: No Wheel 50 ft with 2 turns (QC): 9 Wheel 150 ft (QC): 9 Type of Wheelchair: N/A #of Steps: 12 1 Step (curb) (QC): 6 4 Steps (QC): 6 12 Steps (QC): 6 Walking Assistive Device: Walker Balance Sitting Static: Normal Balance Sitting Dynamic: Good Balance-Standing Static: Good Picking up an Object (QC): 6 Occupational Therapy Decreased Activ Tolerance, Impaired Funct Balance Eating (QC): 6 (Pt has displayed independence with eating by opening packages and using utensils properly.) Oral Hygiene (QC): 6 (Pt standing at sink to complete oral care.) Shower/Bathe Self (QC): 6 (Pt given long-handled sponge to wash feet and lower legs. Pt used grab bars to stand while cleaning buttocks and curtis area. ) Upper Body Dressing (QC): 6 (Pt retrieved clothing and placed on FWW. Able to don/doff shirt IND.) Lower Body Dressing (QC): 6 (Pt able to thread underwear/pants around feet and use FWW to stabilize in standing while hiking pants over hips.) On/Off Footwear (QC): 6 (Pt able to doff both socks. Able to use sock aid by applying lotion to sock aid to decrease friction.) Toileting Hygiene (QC): 6 (Pt able to clean after BM and manipulate clothing.) PT Assisted Goals Assisted Goals PT Assisted Goals Time Frame: May 14, 2023 Roll Left to Right (QC): 6 (Pt will be Mod I with functional mobility to safely return home with spouse. ) Sit to Lying (QC): 6 (Pt will be Mod I with functional mobility to safely return home with spouse. ) Lying-Sitting on Side/Bed(QC): 6 (Pt will be Mod I with functional mobility to safely return home with spouse. ) Sit to Stand (QC): 6 (Pt will be Mod I with functional mobility to safely return home with spouse. ) Chair/Tur-gv-Paryb Xfer(QC): 6 (Pt will be Mod I with functional mobility to safely return home with spouse. ) Toilet/Commode Transfer (QC): 6 (Pt will be Mod I with functional mobility to safely return home with spouse. ) Car Transfer (QC): 6 (Pt will be Mod I with functional mobility to safely return home with spouse. ) Does the Patient Walk: Yes Walk 10 feet (QC): 6 (Pt will be Mod I with functional mobility to safely return home with spouse. ) Walk 10ft-Uneven Surface(QC): 6 (Pt will be Mod I with functional mobility to safely return home with spouse. ) Walk 50ft with 2 Turns (QC): 6 (Pt will be Mod I with functional mobility to safely return home with spouse. ) Walk 150 ft (QC): 6 (Pt will be Mod I with functional mobility to safely return home with spouse. ) Does the Pt use WC or Scooter?: No Wheel 50 feet with 2 turns (QC: 9 Type: N/A Wheel 150 feet: 9 Type: N/A 1 Step (curb) (QC): 6 (Pt will be Mod I with functional mobility to safely return home with spouse. ) 4 Steps (QC): 6 (Pt will be Mod I with functional mobility to safely return home with spouse. ) 12 Steps (QC): 9 Picking up an Object (QC): 6 (Mod I with golf course architect ) OT Web Marketing Coordinator Goals Web Marketing Coordinator Goals Time Frame: May 16, 2023 Acute change in mental status: 0 Inattention: 0 Disorganized thinkin Altered level of consciousness: 0 Eating (QC): 6 (met) Oral Hygiene (QC): 6 (met) Toileting Hygiene (QC): 6 (met) Shower/Bathe Self (QC): 6 (met) Upper Body Dressing (QC): 6 (IND with shirt only. No bra-met) Lower Body Dressing (QC): 6 (met) On/Off Footwear (QC): 6 (met) Additional Goals: 1-Demonstrate ADL Tasks, 2-Verbalize Understanding, 3- ImproveStrength/Michael 1=Demonstrate adherence to instructed precautions during ADL tasks. 2=Patient will verbalize/demonstrate understanding of assistive devices/modifications for ADL. 3=Patient will improve strength/tolerance for activity to enable patient to perform ADL's. SAHIL VERMA PT May 08, 2023 14:01
== END 2023-05-08 10:30 | disposition home or self-care (01) | DRG 561 ==
LOC: UNDODISIN 12:00
PROVIDERS: ADMIT Internal Medicine; ATTEND Internal Medicine
DX: Z47.1 Aftercare following joint replacement surgery (principal); M06.9 Rheumatoid arthritis, unspecified; L50.9 Urticaria, unspecified; I10 Essential (primary) hypertension; E78.00 Pure hypercholesterolemia, unspecified; E03.9 Hypothyroidism, unspecified; K21.9 Gastro-esophageal reflux disease without esophagitis; F32.A Depression, unspecified; K57.30 Diverticulosis of large intestine without perforation or abscess without bleeding; K64.9 Unspecified hemorrhoids; Z96.651 Presence of right artificial knee joint; Z79.890 Hormone replacement therapy; Z79.899 Other long term (current) drug therapy
CPT/HCPCS: 36415; 80053; 85025

== ENCOUNTER → 2023-05-13 | Outpatient (CLI) | payer MEDICARE, OTHER ==
[~2023-05-13] MED LIST changes: +APIX2.5T PO; -CELE-63 PO; +CELE-91 PO; +OXC5T PO; +POTA-160 PO
== END ==
LOC: ORTHO 08:50
PROVIDERS: ATTEND Orthopaedic Surgery
DX: Z47.89 Encounter for other orthopedic aftercare (principal)

== ENCOUNTER → 2023-06-12 | Outpatient (CLI) | payer MEDICARE, OTHER ==
--- NOTE | 2023-06-12 11:43 | Diagnostic Imaging Report ---
INDICATION: POSTOPERATIVE VISIT COMPARISON: 04/28/2023 FINDINGS: Two views of the right knee were obtained. Expected postoperative changes are seen from previous right knee total arthroplasty. Femoral and tibial components appear well-seated. There is no evidence of periprosthetic fracture. No unexpected radiopaque foreign bodies are identified. IMPRESSION: Expected postsurgical changes from previous right knee total arthroplasty, as described above. No evidence of hardware compromise. Dictated by: Dictated on workstation # [id number]
== END ==
LOC: ORTHO 09:32
PROVIDERS: ATTEND Orthopaedic Surgery
DX: Z09 Encounter for follow-up examination after completed treatment for conditions other than malignant neoplasm (principal); Z96.651 Presence of right artificial knee joint
CPT/HCPCS: 73560

== ENCOUNTER → 2023-06-19 | Outpatient (CLI) | payer MEDICARE, OTHER | LOC: ORTHO 09:58 | PROVIDERS: ATTEND Orthopaedic Surgery | DX: M17.12 Unilateral primary osteoarthritis, left knee (principal) | CPT/HCPCS: 20610; G0463; 99213 ==